=== PATIENT | male | born 1960 | race Caucasian/White ===

== ENCOUNTER 2017-05-13 13:04 | Observation (INO) | payer OTHER, BC ==
[~2017-05-13] VITALS: Ht 180.3 cm; Wt 149.5 kg
[~2017-05-13 13:04] MED LIST: ABL5 PO; ACET-1256 PO; AMLO-110 PO; BUPRTAB51 PO; CLS1 PO; CRS20 PO; CYM60 PO; LANS15CA15 PO; LORA-741 PO; LSN/20125 PO; METF500T PO; MULT-506 PO; TRZUNK PO; ZNT/150 PO; [UNRECOGNIZED DRUG - CODE] PO
[2017-05-13] MEDS ORDERED: NITROGLYCERIN OINT 2% 1GM PACKET EXT ONE (13:45)
[2017-05-13 13:55] LABS: BASO ABS # 0.09 K/uL (0-0.2); COMPLETE YES; EOS % 3.2 %; HEMATOCRIT 42.5 % (42-52); IG% 0.2 %; LYMPH % 29.7 %; LYMPH ABS # 2.76 K/uL (1.2-3.4); MEAN CELL VOLUME 84.5 fL (80-100); MEAN CORPUSCULAR HEMOGLOBIN 28.4 pg (25-34); MEAN CORPUSCULAR HGB CONC 33.6 g/dl (32-36); MEAN PLATELET VOLUME 9.1 fL (7.4-10.4); MONO % 7.1 %; NEUT % 58.8 %; PLATELET COUNT 372 K/uL (130-400); RED BLOOD COUNT 5.03 M/uL (4.7-6.1); WHITE BLOOD COUNT 9.28 K/uL (4.8-10.8)
[2017-05-13 14:02] LABS: POINT OF CARE TROPONIN I < 0.030 ng/ml (0-0.045)
[2017-05-13] MEDS ORDERED: TAPE100T2 PO (14:03)
[2017-05-13] MEDS ORDERED: DULO60CA44 PO (14:03)
[2017-05-13] MEDS ORDERED: TRAZ100T29 PO (14:03)
[2017-05-13] MEDS ORDERED: COLE1TAB PO (14:03)
[2017-05-13] MEDS ORDERED: ATOR-26 PO (14:03)
--- NOTE | 2017-05-13 14:07 | DIAGNOSTIC IMAGING REPORT ---
CHEST ONE VIEW PORTABLE CLINICAL HISTORY: Atypical chest pain COMPARISON STUDY: 09/24/2012 FINDINGS: The heart is at the upper limits of normal in size. There is no failure. There is no focal pulmonary consolidation. There are no pleural effusions. There is left basal atelectasis/scarring.[ IMPRESSION: No active disease in the chest. Electronically signed by: Bala Hunter M.D. 05/13/2017 2:06 PM Dictated Date/Time: 05/13/2017 2:05 PM
[2017-05-13 14:14] LABS: ALT/SGPT 33 U/L (12-78); AST/SGOT 14 U/L (15-37); BLOOD UREA NITROGEN 14 mg/dl (7-18); BUN/CREATININE RATIO 14.5 (10-20); CALCIUM 8.9 mg/dl (8.5-10.1); CARBON DIOXIDE 26 mmol/L (21-32); CHLORIDE 103 mmol/L (98-107); CREATININE 0.93 mg/dl (0.60-1.40); GLUCOSE 88 mg/dl (70-99); POTASSIUM 3.8 mmol/L (3.5-5.1); SODIUM 138 mmol/L (136-145)
[2017-05-13 14:19] LABS: ALKALINE PHOSPHATASE 104 U/L (45-117); CKMB/CK RATIO 0.9 (0-3.0)
--- NOTE | 2017-05-13 14:34 | EMERGENCY ROOM VISIT NOTE ---
History Report prepared by Brandie: Magdalena Perla Under the Supervision of: Dr. Vania Doherty M.D. First contact with patient: 13:31 Chief Complaint: CHEST PAIN Stated Complaint: CHEST DISCOMFORT Nursing Triage Summary: pt to the ED from [facility] with 2.5 wks of feeling like his heart is beating fast with sweats and bilateral neck pain and dizziness, pt states it feele like someone is sitting on his chest. pt had a neg stress test 2 years ago and has paperwork on chart from [facility] pt was given 2 nitro by EMS and it brought his pain from a 4/10 to a 0/10 and now he states his pain is 2/10 pt states that chest pain is better when he is on O2, pt placed back on O2 History of Present Illness The patient is a 56 year old male who presents to the Emergency Room with complaints of intermittent chest pain for the past 2.5 weeks. He states that it feels like someone is sitting on his chest. He also has intermittent pain in the left side of his neck. He reports occasional heart palpitations and episodes of diaphoresis. He states that these episodes don't necessarily coincide with his pain. He gets short of breath and dizzy with standing. His pain radiates down his left arm. The patient rates his current pain as a 2/10 in severity. His symptoms are worsened with exertion. He denies nausea, vomiting , leg pain or swelling, and pain radiating into his back. The patient was brought to the ED by ambulance. He received nitro, oxygen, and aspirin en route , which he states helped to alleviate his pain. The patient was recently diagnosed with a viral ear infection and initially thought that his symptoms might be related to that. Source of History: patient Onset: 2.5 weeks ago Position: chest Symptom Intensity: 2/10 Timing: intermittent Modifying Factors (Worsening): exertion Modifying Factors (Relieving): oxygen, other Associated Symptoms: + diaphoresis, + SOB, No nausea, No back pain Review of Systems See HPI for pertinent positives & negatives. A total of 10 systems reviewed and were otherwise negative. Past Medical & Surgical Medical Problems: (1) Anxiety (2) Chronic pain syndrome (3) Depression (4) GERD (gastroesophageal reflux disease) (5) HLD (hyperlipidemia) (6) Hypertension (7) Irritable bowel syndrome (8) Morbid obesity with BMI of 45.0-49.9, adult (9) Pre-diabetes Family History Cancer Diabetes mellitus Heart disease Social History Smoking Status: Former Smoker Marital Status: Occupation Status: employed Current/Historical Medications Scheduled Acetaminophen (Tylenol), 1,000 MG PO PRN Aspirin (Aspirin 81), 1 PO DAILY Atorvastatin (Atorvastatin Calcium), 40 MG PO DAILY Bupropion (Wellbutrin-Xl), 300 MG PO DAILY Colestipol Hcl (Colestid), 1 GM PO BID Cyanocobalamin (Vitamin B-12 1000 Mcg), 1 TAB PO DAILY Duloxetine Hcl (Cymbalta), 60 MG PO BID Hctz/Lisinopril (Zestoretic 20MG/12.5MG), 1 EA PO QAM Multivitamin (Multivitamin), 1 TAB PO DAILY Ranitidine Hcl (Zantac), 300 MG PO HS Trazodone HCl (Trazodone HCl), 200 MG PO HS Scheduled PRN Tapentadol Hcl (Nucynta), 100 MG PO QID PRN for Pain Allergies Coded Allergies: Adhesives (Verified Allergy, Unknown, `, 05/13/17) Poison Jo-Ann Extract/Poison [place] Extra (Verified Allergy, Unknown, `, 05/13/17 ) Physical Exam Vital Signs Date Time Temp Pulse Resp B/P (MAP) Pulse Ox O2 Delivery O2 Flow Rate FiO2 05/13/17 14:55 36.9 78 18 128/85 97 Nasal Cannula 2.0 05/13/17 14:38 79 18 128/85 97 Nasal Cannula 2.0 05/13/17 13:44 70 20 138/94 97 Nasal Cannula 1.0 05/13/17 13:18 Nasal Cannula 2.0 05/13/17 13:12 63 05/13/17 13:11 36.9 77 20 121/84 95 Room Air 05/13/17 13:11 95 Room Air Physical Exam Vital signs reviewed. General: Well-appearing 56 year old male, in no significant distress. HEENT: No scleral icterus, PERRLA, neck supple. Atraumatic. Cardiovascular: Regular rate and rhythm, no extra sounds. Pulmonary: Clear to auscultation bilaterally, normal work of breathing. Abdomen: Soft, obese, nontender, nondistended, positive bowel sounds. Musculoskeletal: Atraumatic, no peripheral edema. Neurologic: Patient awake alert and oriented x 3 Skin: Warm, dry, no rash Medical Decision & Procedures ER Provider Diagnostic Interpretation: Radiology results as stated below per my review and radiologist interpretation: CHEST ONE VIEW PORTABLE CLINICAL HISTORY: Atypical chest pain COMPARISON STUDY: 09/24/2012 FINDINGS: The heart is at the upper limits of normal in size. There is no failure. There is no focal pulmonary consolidation. There are no pleural effusions. There is left basal atelectasis/scarring.[ IMPRESSION: No active disease in the chest. Electronically signed by: Bala Hunter M.D. 05/13/2017 2:06 PM Dictated Date/Time: 05/13/2017 2:05 PM Laboratory Results Test 05/13/17 13:25 05/13/17 13:43 Immature Granulocyte % (Auto) 0.2 % White Blood Count 9.28 K/uL (4.8-10.8) Red Blood Count 5.03 M/uL (4.7-6.1) Hemoglobin 14.3 g/dL (14.0-18.0) Hematocrit 42.5 % (42-52) Mean Corpuscular Volume 84.5 fL (80-100) Mean Corpuscular Hemoglobin 28.4 pg (25-34) Mean Corpuscular Hemoglobin Concent 33.6 g/dl (32-36) Platelet Count 372 K/uL (130-400) Mean Platelet Volume 9.1 fL (7.4-10.4) Neutrophils (%) (Auto) 58.8 % Lymphocytes (%) (Auto) 29.7 % Monocytes (%) (Auto) 7.1 % Eosinophils (%) (Auto) 3.2 % Basophils (%) (Auto) 1.0 % Neutrophils # (Auto) 5.45 K/uL (1.4-6.5) Lymphocytes # (Auto) 2.76 K/uL (1.2-3.4) Monocytes # (Auto) 0.66 K/uL (0.11-0.59) Eosinophils # (Auto) 0.30 K/uL (0-0.5) Basophils # (Auto) 0.09 K/uL (0-0.2) Immature Granulocyte # (Auto) 0.02 K/uL (0.00-0.02) Activated Partial Thromboplast Time 28.7 SECONDS (21.0-31.0) Partial Thromboplastin Ratio 1.1 Total Bilirubin 0.4 mg/dl (0.2-1) Direct Bilirubin < 0.1 mg/dl (0-0.2) Aspartate Amino Transf (AST/SGOT) 14 U/L (15-37) Alanine Aminotransferase (ALT/SGPT) 33 U/L (12-78) Alkaline Phosphatase 104 U/L (45-117) Total Creatine Kinase 74 U/L (39-308) Creatine Kinase MB 0.7 ng/ml (0.5-3.6) Creatine Kinase MB Ratio 0.9 (0-3.0) Total Protein 6.9 gm/dl (6.4-8.2) Albumin 3.6 gm/dl (3.4-5.0) Bedside D-Dimer 311 ng/mlFEU (0-450) Bedside Troponin I < 0.030 ng/ml (0-0.045) Laboratory results per my review. Medications Administered Medications (Trade) Dose Ordered Sig/Samira Route Start Time Stop Time Status Last Admin Dose Admin Nitroglycerin (Nitroglycerin 2% Oint) 1 inch NOW ONCE EXT 05/13/17 13:45 05/13/17 13:46 DC 05/13/17 13:47 1 INCH Acetaminophen (Tylenol Tab) 650 mg Q4H PRN PO 05/13/17 15:15 05/14/17 12:37 DC 05/13/17 19:02 650 MG Nitroglycerin (Nitrostat Tab) 0.4 mg UD PRN SL 05/13/17 15:15 06/12/17 15:14 05/13/17 22:38 0.4 MG ECG Indication: chest pain Rate (beats per minute): 74 Rhythm: normal sinus Findings: 1st degree AV block, no acute ischemic change, left axis deviation, no ectopy, other (likely previous inferior infarct) ED Course 1331: Past medical records reviewed. The patient was evaluated in room C8. A complete history and physical examination was performed. 1345: Nitroglycerin 1 inch EXT 1421: I reassessed the patient at this time. He is feeling better and resting comfortably. I discussed the results and treatment plan with the patient. I answered all pertaining questions that he had. He expressed understanding and verbalized agreement. 1444: I reviewed the patient's case with Dr. Ponce. [facility]. Medical Decision Differential diagnoses includes acute coronary syndrome, pulmonary embolus, aortic dissection, musculoskeletal pain, pneumonia, pleural effusion, pneumothorax, gastritis, peptic ulcer disease. This patient was evaluated and appeared to be in no significant distress. IV access was obtained and laboratory work was drawn. The patient was placed on the vehicle upholsterer and found be in a normal sinus rhythm. EKG reveals no evidence of acute ischemic change. Patient's cardiac enzymes are normal. He did receive aspirin and topical nitroglycerin. Chest x-ray reveals cardiomegaly without acute disease. Patient was referred to the hospitalist service for further cardiac evaluation. He is aware of the plan and agrees. Medication Reconcilliation Current Medication List: was personally reviewed by me Blood Pressure Screening Patient's blood pressure: Normal blood pressure Consults Time Called: 1441 Consulting Physician: Dr. Ponce Returned Call: 1444 I reviewed the patient's case with Dr. Ponce. The [facility]ist Group will evaluate the patient for further management. Impression Primary Impression: Substernal chest pain Scribe Attestation The scribe's documentation has been prepared under my direction and personally reviewed by me in its entirety. I confirm that the note above accurately reflects all work, treatment, procedures, and medical decision making performed by me. Departure Information Dispostion Being Evaluated By Hospitalist Patient Instructions My [facility]
[2017-05-13 14:55] VITALS: BP 128/85; PULSE 78; TEMP 36.9; O2SAT 97; Ht 180.3 cm; Wt 149.5 kg
[2017-05-13] MEDS ORDERED: ONDANSETRON INJ 2 MG/ML 2 ML VIAL IV PRN (15:15)
[2017-05-13] MEDS ORDERED: MoRPHine SULFATE 2 MG/ML CARP IV PRN (15:15)
[2017-05-13] MEDS ORDERED: ACETAMINOPHEN 325 MG TAB PO PRN (15:15)
[2017-05-13] MEDS ORDERED: ALUMINUM/MAGNESIUM/SIMETH (MAALOX MAX) 30 ML UDC PO PRN (15:15)
[2017-05-13] MEDS ORDERED: IV FLUIDS COMPLETED PRN (15:45)
--- NOTE | 2017-05-13 16:01 | History and Physical ---
History & Physical Date & Time of Service: May 13, 2017 at 15:47 Chief Complaint: Chest Discomfort Primary Care Physician: Nomi Em M.D. (MEDICAL) History of Present Illness Source: patient This is a 56yo M with a PMH of HTN, HLD, pre-diabetes and GERD who presents with intermittent chest pain that began 2.5 weeks ago. States that chest pain feels like extreme pressure on the L side of his chest with radiation down L arm and bilateral jaw. Usually lasts for an hour at a time with associated fatigue and shortness of breath. Pain is severe enough that patient has to lie down on the couch or floor until the episode subsides and he can resume his activity. States that episodes can occur while patient is at rest or exerting himself. Has also been experiencing bouts of palpitations with associated sweating over the past few weeks that do not coincide with CP. Initially called the [facility] on Saturday with a description of these symptoms and was told to come to the ER for further evaluation. Patient felt he had too much to do this weekend, so stayed home and continued resting during each episode and then resuming activity. After his clinic appt at the [facility] this morning, was sent to the ER for further evaluation. Received nitro, oxygen and aspirin from EMS en route to the hospital and pain decreased to a 2/10. Currently rates CP as a 2/10 in severity and is breathing comfortably on 2L NC. Denies any headache, visual changes, sweating, palpitations, SOB, abd pain, nausea, vomiting or LE swelling. Denies recent weight gain or an increase in LE swelling. Has chronic diarrhea (h/o c diff infection in 2008) and has been having 2 episodes/day. States that he has previously been seen for chest pain at the [facility]. Per records, patient had a negative nuclear stress echo in 2015, with normal ventricular wall motion and an estimated EF of 89%. Has a + family history of heart disease. Denies any previous diagnosis of CHF. Has been taking all medications regularly. Past Medical/Surgical History Medical Problems: (1) Anxiety Status: Chronic (2) Chronic pain syndrome Status: Chronic (3) Depression Status: Chronic (4) GERD (gastroesophageal reflux disease) Status: Chronic (5) HLD (hyperlipidemia) Status: Chronic (6) Hypertension Status: Chronic (7) Irritable bowel syndrome Status: Chronic (8) Morbid obesity with BMI of 45.0-49.9, adult Status: Chronic (9) Pre-diabetes Status: Chronic Family History Cancer Diabetes mellitus Heart disease Social History Smoking Status: Former Smoker (Quit in 1995. 18 pack years) Alcohol Use: socially (3-4 beers/week) Drug Use: none Multi-Drug Resistant Organisms History of MDRO: No Allergies Coded Allergies: Adhesives (Verified Allergy, Unknown, `, 05/13/17) Poison Jo-Ann Extract/Poison [place] Extra (Verified Allergy, Unknown, `, 05/13/17 ) Home Medications Scheduled Acetaminophen (Tylenol), 1,000 MG PO PRN Aspirin (Aspirin 81), 1 PO DAILY Atorvastatin (Atorvastatin Calcium), 40 MG PO DAILY Bupropion (Wellbutrin-Xl), 300 MG PO DAILY Colestipol Hcl (Colestid), 1 GM PO BID Cyanocobalamin (Vitamin B-12 1000 Mcg), 1 TAB PO DAILY Duloxetine Hcl (Cymbalta), 60 MG PO BID Hctz/Lisinopril (Zestoretic 20MG/12.5MG), 1 EA PO QAM Multivitamin (Multivitamin), 1 TAB PO DAILY Ranitidine Hcl (Zantac), 300 MG PO HS Trazodone HCl (Trazodone HCl), 200 MG PO HS Scheduled PRN Tapentadol Hcl (Nucynta), 100 MG PO QID PRN for Pain Review of Systems Ten systems reviewed and negative except as noted in the HPI. Physical Exam Vital Signs Date Time Temp Pulse Resp B/P (MAP) Pulse Ox O2 Delivery O2 Flow Rate FiO2 05/13/17 14:55 36.9 78 18 128/85 97 Nasal Cannula 2.0 05/13/17 14:38 79 18 128/85 97 Nasal Cannula 2.0 05/13/17 13:44 70 20 138/94 97 Nasal Cannula 1.0 05/13/17 13:18 Nasal Cannula 2.0 05/13/17 13:12 63 05/13/17 13:11 36.9 77 20 121/84 95 Room Air 05/13/17 13:11 95 Room Air General Appearance: no apparent distress, + obese Head: normocephalic, atraumatic Eyes: normal inspection, PERRL ENT: hearing grossly normal Neck: supple, no adenopathy, thyroid normal, trachea midline Respiratory/Chest: chest non-tender, lungs clear, normal breath sounds, no respiratory distress, no accessory muscle use Cardiovascular: regular rate, rhythm, no murmur, normal peripheral pulses Abdomen/GI: normal bowel sounds, non tender, soft, no organomegaly Back: normal inspection Extremities/Musculoskelatal: normal inspection, no calf tenderness, no pedal edema Neurologic/Psych: no motor/sensory deficits, alert, normal mood/affect, oriented x 3 Skin: normal color, warm/dry Diagnostics Laboratory Results Results Past 24 Hours Test 05/13/17 13:25 05/13/17 13:43 05/13/17 15:13 Range/Units White Blood Count 9.28 4.8-10.8 K/uL Red Blood Count 5.03 4.7-6.1 M/uL Hemoglobin 14.3 14.0-18.0 g/dL Hematocrit 42.5 42-52 % Mean Corpuscular Volume 84.5 80-100 fL Mean Corpuscular Hemoglobin 28.4 25-34 pg Mean Corpuscular Hemoglobin Concent 33.6 32-36 g/dl Platelet Count 372 130-400 K/uL Mean Platelet Volume 9.1 7.4-10.4 fL Neutrophils (%) (Auto) 58.8 % Lymphocytes (%) (Auto) 29.7 % Monocytes (%) (Auto) 7.1 % Eosinophils (%) (Auto) 3.2 % Basophils (%) (Auto) 1.0 % Neutrophils # (Auto) 5.45 1.4-6.5 K/uL Lymphocytes # (Auto) 2.76 1.2-3.4 K/uL Monocytes # (Auto) 0.66 0.11-0.59 K/uL Eosinophils # (Auto) 0.30 0-0.5 K/uL Basophils # (Auto) 0.09 0-0.2 K/uL RDW Standard Deviation 43.0 36.4-46.3 fL RDW Coefficient of Variation 13.9 11.5-14.5 % Immature Granulocyte % (Auto) 0.2 % Immature Granulocyte # (Auto) 0.02 0.00-0.02 K/uL Sodium Level 138 136-145 mmol/L Potassium Level 3.8 3.5-5.1 mmol/L Chloride Level 103 98-107 mmol/L Carbon Dioxide Level 26 21-32 mmol/L Anion Gap 9.0 3-11 mmol/L Blood Urea Nitrogen 14 7-18 mg/dl Creatinine 0.93 0.60-1.40 mg/dl Est Creatinine Clear Calc Drug Dose 131.8 ml/min Estimated GFR () 105.2 Estimated GFR (Non- 90.8 BUN/Creatinine Ratio 14.5 10-20 Random Glucose 88 70-99 mg/dl Calcium Level 8.9 8.5-10.1 mg/dl Total Bilirubin 0.4 0.2-1 mg/dl Direct Bilirubin < 0.1 0-0.2 mg/dl Aspartate Amino Transf (AST/SGOT) 14 15-37 U/L Alanine Aminotransferase (ALT/SGPT) 33 12-78 U/L Alkaline Phosphatase 104 45-117 U/L Total Creatine Kinase 74 39-308 U/L Creatine Kinase MB 0.7 0.5-3.6 ng/ml Creatine Kinase MB Ratio 0.9 0-3.0 Total Protein 6.9 6.4-8.2 gm/dl Albumin 3.6 3.4-5.0 gm/dl Bedside D-Dimer 311 0-450 ng/mlFEU Bedside Troponin I < 0.030 0-0.045 ng/ml CXR normal EKG Sinus rhythm with 1st degree A-V block Left axis deviation Impression Assessment and Plan This is a 56yo M with a PMH of HTN, HLD, pre-diabetes and GERD who presents with intermittent chest pain that began 2.5 weeks ago. Typical chest pain: -R/o ACS; risk factors include HTN, HLD, obesity, pre-diabetes, + family history -[facility] -Received nitro, aspirin and O2 by EMS. Pain was alleviated -Initial troponin negative -EKG- SR with 1st degree AV block, LAD. possible old inferior infarct -CXR- No active disease in chest -Trend serial cardiac enzymes -Check echo -Repeat EKG in AM -Fasting lipids in AM -Consult cardiology -Continue home dose of aspirin HTN: -Stable -Continue home lisinopril/hctz Pre-diabetes: -Hgb alc of 6.2 in 2016 -Re-check hgb a1c due to recent complaints of fatigue -Previously taking metformin but was causing severe diarrhea HLD: -Fasting lipid panel in AM -Continue atorvastatin Chronic pain syndrome: -Chronic lower back, lower abdominal and L testicular pain -Controlled with a 2/10 rating of overall pain -Continue home regimen of Nucynta, trazodone Anxiety, depression: -Controlled -Continue cymbalta, bupropion GERD: -Continue Ranitidine IBS: -Has 2 episodes of diarrhea daily (chronic) -Continue Colestipol BID PRN DVT Ppx: Lovenox Code status: FULL PCP: Dr. Em, [facility] Dispo: Plan to return home once medically stable Level of Care Telemetry Advanced Directives Existing Living Will: No Existing Power of Ergonomic Specialist: Yes Resuscitation Status FULL RESUSCITATION VTE Prophylaxis VTE Risk Assessment Done? Y/N: Yes Risk Level: Moderate Given or contraindicated: Enoxaparin (Lovenox)SQ Note ATTENDING ADDENDUM Record reviewed. Patient interviewed and examined. in ED ~ 15:50. Care coordinated with Adeel Lala PA-C. Please refer to her documentation for patient's history. Briefly, 56 YO male with history of hypertension, dyslipidemia, prediabetes, GERD, family history of ischemic heart disease. Experiencing intermittent CP for past 2-3 weeks. Chest pain described as substernal chest pressure that radiates to his left arm , associated with dyspnea and diaphoresis. CP occurs with activity (but not always) and relieved by rest. Seen in [facility] this morning and referred to ED; received aspirin, SL NTG, and O2 by EMS with improvement of symptoms. Received NTP in ED with resolution of CP. EXAM: General- no distress VS- as noted HEENT- anicteric Neck- supple Lungs- clear to A&P Heart- RRR, S4, no S3, no murmur, no rub; no JVD; carotid pulses 2/2; radial and pedal pulses 2/2 Abdomen- + BS, soft, nontender; no palpable masses or hepatosplenomegaly Extremities- no pretibial edema or calf tenderness Neuro- alert, oriented DATA: Lab studies as noted. EKG performed at 13:11 reviewed and demonstrated NSR at 74 / minute, first degree AV block, possible age-indeterminate inferior TN, no acute changes.. Chest x-ray reviewed- no infiltrates, effusions, CHF. ASSESSMENT AND PLAN: Chest pain, possible angina. [facility]. Check serial cardiac markers and EKG's. Check echo. Check lipid profile. Continue usual antihypertensive and lipid-lowering meds. Received aspirin en route to ED- continue 81 mg daily. Consult Cardiology. Continue worsening GERD or other etiologies if cardiac work-up negative. Please refer to JANICE Lala's documentation for discussion of other issues. Randy Ponce MD . Additional Copies To [facility]
[2017-05-13] MEDS ORDERED: ASPI325T45 PO (16:17)
[2017-05-13] MEDS ORDERED: LPT40 PO (16:17)
[2017-05-13] MEDS ORDERED: DSY100 PO (16:17)
[2017-05-13] MEDS ORDERED: CYAN10004 PO (16:17)
[2017-05-13 16:32] LABS: PARTIAL THROMBOPLASTIN RATIO 1.1; PROTHROMBIN TIME (PATIENT) 10.8 SECONDS (9.0-12.0)
[2017-05-13] MEDS ORDERED: ASPI-435 PO (16:53)
[2017-05-13] MEDS: NITROGLYCERIN 0.4 MG SL PER TAB CHARGE SL PRN ×2 (17:10→22:38)
[2017-05-13 18:47] VITALS: BP 154/87; PULSE 79; TEMP 37.1; O2SAT 97
[2017-05-13] MEDS: TAPENTADOL HCL 50 MG TAB PO PRN (19:11)
[2017-05-13 19:12] LABS: URINE APPEARANCE CLEAR (CLEAR); URINE BILIRUBIN NEG (NEG); URINE COLOR YELLOW; URINE NITRITE NEG (NEG); URINE SPECIFIC GRAVITY 1.013 (1.000-1.030); UROBILINOGEN NEG (NEG); ZZUR CULT IF INDIC CLEAN CATCH NO
[2017-05-13 19:13] LABS: MANUAL MICROSCOPIC REQUIRED? NO; REVIEW REQ? NO
[2017-05-13 20:00] VITALS: O2SAT 96
[2017-05-13] MEDS ORDERED: COLESTIPOL HCL 1 GM TAB PO SCH (21:00)
[2017-05-13] MEDS ORDERED: ENOXAPARIN 40 MG/0.4 ML SYR SC SCH (21:00)
[2017-05-13] MEDS: RANITIDINE HCL 150 MG TAB PO SCH (21:01)
[2017-05-13] MEDS: DULOXETINE HCL 60 MG CAP PO SCH (21:02)
[2017-05-13] MEDS: TRAZODONE HCL 100 MG TAB PO SCH (21:02)
[2017-05-13] MEDS: COLESTIPOL HCL 1 GM TAB PO SCH (22:12)
[2017-05-13 22:23] VITALS: BP 146/92; PULSE 76
[2017-05-13] MEDS: NITROGLYCERIN OINT 2% 1GM PACKET EXT SCH (22:48)
[2017-05-13 22:49] VITALS: BP 152/90; PULSE 88; O2SAT 93
[2017-05-13 23:59] VITALS: BP 119/75; PULSE 77; TEMP 36.6; O2SAT 95
[2017-05-14] VITALS (19 sets, daily range): BP systolic 111–149; BP diastolic 73–98; PULSE 70–96; TEMP 36.6–37.4; O2SAT 92–97
[2017-05-14] MEDS: NITROGLYCERIN OINT 2% 1GM PACKET EXT SCH ×3 (05:09→17:00)
[2017-05-14 06:15] LABS: HEMATOCRIT 41.4 % (42-52); MEAN CELL VOLUME 84.8 fL (80-100); MEAN CORPUSCULAR HEMOGLOBIN 28.5 pg (25-34); MEAN CORPUSCULAR HGB CONC 33.6 g/dl (32-36); MEAN PLATELET VOLUME 9.1 fL (7.4-10.4); PLATELET COUNT 338 K/uL (130-400); RED BLOOD COUNT 4.88 M/uL (4.7-6.1)
[2017-05-14 06:26] LABS: PROTHROMBIN TIME (PATIENT) 10.9 SECONDS (9.0-12.0)
[2017-05-14 06:27] LABS: ESTIMATED AVERAGE GLUCOSE 131 mg/dl; HA1C FLAG Normal (Normal)
[2017-05-14 06:46] LABS: BLOOD UREA NITROGEN 12 mg/dl (7-18); BUN/CREATININE RATIO 12.3 (10-20); CALCIUM 9.6 mg/dl (8.5-10.1); CARBON DIOXIDE 32 mmol/L (21-32); CHLORIDE 102 mmol/L (98-107); GLUCOSE 95 mg/dl (70-99); SODIUM 138 mmol/L (136-145)
[2017-05-14 06:50] LABS: CHOLESTEROL 150 mg/dl (0-200); CHOLESTEROL/HDL RATIO 3.8; HDL CHOLESTEROL 39 mg/dl; LDL CHOLESTEROL CALCULATED 53 mg/dl; TRIGLYCERIDES 288 mg/dl (0-150); VERY LOW DENSITY LIPOPROT CALC 58 mg/dl
[2017-05-14] MEDS ORDERED: PERFLUTREN LIPID MICROSPHERE (DEFINITY) IV ONE (08:05)
--- NOTE | 2017-05-14 08:38 | Cardiology Consultation ---
Cardiology Consultation Date of Consultation: May 14, 2017 Requesting Physician: Dr. Ponce Attending Director Of Medical Review: Dr. Atkins (Lawanda Lamas PA-C) History of Present Illness Patient is a 56 year old male with a past medical history including HTN, obesity , dyslipidemia, prior tobacco abuse, chronic pain syndrome, IBS, and family history of CAD. Patient reports having intermittent chest heaviness over the last 2 weeks. Occurs at rest or with minimal exertion. Feels the urge to lie down and symptoms resolve within 15 minutes. Describes the chest discomfort as pressure, someone sitting on his chest, with radiation to neck. Notes SOB at the time and dizziness. No orthopnea, PND or LE edema. He recalls having a nuclear stress test in 2014 at the [place], which was reported as normal. He denies history of arrhythmia, murmur/valvular disease, CHF or prior cardiac cath. he recalls being told he had a "heart attack" after having an EKG many years ago prior to orthopedic surgery. Echo report from several years ago demonstrated normal LV function. No valvular disease. He went to the [place] yesterday morning for his symptoms and was referred to ER for evaluation. 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 Cardiac enzymes unremarkable x3. Chest/neck pressure resolved with 1 SL nitro in the ER. He noted recurrent symptoms last evening on several occasions, also resolving with 1 SL nitro. He has supplemental O2 in place, which he reports aids his symptoms. he does not wear O2 at home. Chest xray was clear. He had one episode of sustained tachypalpitations on telemetry suggestive of paroxysmal SVT with aberrancy. He noted chest pain during this time. No syncope or near syncope. resolved spontaneously. At time of consult, patient feeling ok. No current symptoms. He is NPO. (Lawanda Lamas PA-C) Past Medical/Surgical History Problem List: Medical Problems: (1) Anxiety (2) Chronic pain syndrome (3) Depression (4) GERD (gastroesophageal reflux disease) (5) HLD (hyperlipidemia) (6) Hypertension (7) Irritable bowel syndrome (8) Morbid obesity with BMI of 45.0-49.9, adult (9) Pre-diabetes Surgical History: Procedure Laterality Date Comment BACK/FLANK SUBQ TUMOR REMOVAL, UNDER 3 CM 10/07/12 Re-excision of 15 x 8 cm area in the left lower pole back for multilobular lipo 10/07/2012 ma 10/07/12 Dr. Gaffney at [facility] COLONOSCOPY W/ BIOPSY (RECTUM) 02/18/09 repeat in 3 yrs COLONOSCOPY, DIAGNOSTIC (RECTUM) 01/24/2012 repeat 5 years-COLONOSCOPY FLEXIBLE PROXIMAL DIAGNOSTIC performed by DEONTE BROWN at [facility] COLONOSCOPY, GI REFERRAL OP 07/09/06 adenomatous--repeat 1 year COLONOSCOPY, REMOVE LESION 2002 COLONOSCOPY/REMOVE LESION 02/26/08 6 mm polyp removed (adenomatous)- repeat 1 year COLORECTAL CANCER SCREEN;COLON 01/24/2012 lipoma ascending colon post polypectomy scae repeat in 5 years CYSTOSCOPY 05-21-07 under anesthesia DENTAL SURGERY PROCEDURE NEC 02/05 beone removal from mouth EGD, FLEXIBLE, DIAGNOSTIC 02/26/08 wnl INFORMATION lipoma removal, large, back x 6 INFORMATION left side wall skin removal, brown recluse spider bite INFORMATION mole removal, left shoulder INFORMATION growth removal, lip MISCELLANEOUS ORDER 2006 Pain stimulator-Dr. Hartman, removed March 10 MISCELLANEOUS ORDER 03/21/01 Exploration left inguinal area with local IV sedation -Dr. Gaffney [facility] MISCELLANEOUS ORDER 2006 Right arm nerve relocation-[facility] REMOVAL OF TONSILS, UNDER AGE 11 Tonsillectomy,<12 Y/O UNLISTED PROCEDURE, SMALL INTESTINE 1991 ventral hernia repair, then attempted nerve repair-[facility] (Lawanda Lamas, KELLEYC) Family History Cancer Diabetes mellitus Heart disease Mother with multiple HI's age 50's. No interventions performed, occurred during chemotherapy treatments. (Lawanda Lamas, KELLEYC) Cancer Diabetes mellitus Heart disease (Henri Atkins, DO) Social History Smoking Status: Former Smoker (Quit in 1995. 18 pack years) Alcohol Use: socially (3-4 beers/week) Drug Use: none (Lawanda Lamas, KELLEYC) Review Of Systems General: The patient denies weight change, night sweats, fever, chills. Head: The patient denies headache and prior head trauma. Cardiovascular: The patient denies chest pain or chest discomfort, dyspnea on exertion, palpitations, PND, orthopnea, edema, spontaneous shortness of breath, syncope and near syncope. Pulmonary: The patient denies cough, wheeze, pleurisy, hemoptysis, sputum, and excessive snoring. Gastrointestinal: The patient denies nausea, vomiting, diarrhea, constipation, bloating, hematemesis, hematochezia, and abdominal pain. Skin: The patient denies diaphoresis and rash. Musculoskeletal: +chronic diffuse pain. Neurological: The patient denies prior stroke and seizures (Lawanda Lamas PA-C) Allergies Coded Allergies: Adhesives (Verified Allergy, Unknown, `, 05/13/17) Poison Jo-Ann Extract/Poison Bud Extra (Verified Allergy, Unknown, `, 05/13/17 ) Medications Reported Home Medications Medications Dose Route/Sig Max Daily Dose Days Date Category Aspirin 81 (Aspirin) 81 Mg Tab 1 PO DAILY 05/13/17 Reported Vitamin B-12 1000 Mcg (Cyanocobalamin) 1,000 Mcg Tab 1 Tab PO DAILY 30 05/13/17 Reported Atorvastatin Calcium (Atorvastatin) 40 Mg Tab 40 Mg PO DAILY 05/13/17 Reported Trazodone HCl 100 Mg Tab 200 Mg PO HS 05/13/17 Reported Nucynta (Tapentadol Hcl) 100 Mg Tab 100 Mg PO QID PRN 05/13/17 Reported Cymbalta (Duloxetine Hcl) 60 Mg Cap 60 Mg PO BID 05/13/17 Reported Colestid (Colestipol Hcl) 1 Gm Tab 1 Gm PO BID 05/13/17 Reported Wellbutrin-Xl (Bupropion HCl) 300 Mg Tabcr 300 Mg PO DAILY 09/15/10 Reported Multivitamin (Multivitamins) Tab 1 Tab PO DAILY 01/03/10 Reported Zantac (Ranitidine Hcl) 150 Mg Tab 300 Mg PO HS 01/03/10 Reported Zestoretic 20MG/12.5MG (HCTZ/Lisinopril) 1 Ea Tab 1 Ea PO QAM 01/03/10 Reported Tylenol (Acetaminophen) 500 Mg Tab 1,000 Mg PO PRN 04/24/09 Reported (Lawanda Lamas PA-C) Physical Exam Vital Signs (Last 8hrs): Last 8 Hrs Date Time Temp Pulse Resp B/P (MAP) Pulse Ox O2 Delivery O2 Flow Rate FiO2 05/14/17 07:54 93 Nasal Cannula 2.0 05/14/17 07:15 37.0 78 15 135/76 (95) 93 Nasal Cannula 2.0 05/14/17 05:10 96 133/73 (93) 05/14/17 04:13 36.6 70 16 119/74 (89) 92 05/14/17 04:00 Nasal Cannula 2.0 General Appearance: Alert and Oriented x3. NAD. Obese. Head: Normocephalic Atraumatic. Eyes: PERRLA, EOMI, conjunctiva and sclera clear Neck: Supple. No carotid bruits noted. No JVD. No HJD. Respiratory: Decreased breath sounds, otherwise clear. Cardiovascular: Reg rate and rhythm. distant heart sounds. Abdomen: Obese. Normal bowel sounds, soft nontender. no abdominal bruits. Extremities: No edema, no clubbing or cyanosis. distal pulses 2/4 bilaterally. Neuro: No focal deficits. Psychiatric: Normal affect. (Lawanda Lamas, ERAN) Data Last 24 Hours Test 05/13/17 13:25 05/13/17 13:43 05/13/17 18:50 05/13/17 21:54 White Blood Count 9.28 K/uL Red Blood Count 5.03 M/uL Hemoglobin 14.3 g/dL Hematocrit 42.5 % Mean Corpuscular Volume 84.5 fL Mean Corpuscular Hemoglobin 28.4 pg Mean Corpuscular Hemoglobin Concent 33.6 g/dl Platelet Count 372 K/uL Mean Platelet Volume 9.1 fL Neutrophils (%) (Auto) 58.8 % Lymphocytes (%) (Auto) 29.7 % Monocytes (%) (Auto) 7.1 % Eosinophils (%) (Auto) 3.2 % Basophils (%) (Auto) 1.0 % Neutrophils # (Auto) 5.45 K/uL Lymphocytes # (Auto) 2.76 K/uL Monocytes # (Auto) 0.66 K/uL Eosinophils # (Auto) 0.30 K/uL Basophils # (Auto) 0.09 K/uL RDW Standard Deviation 43.0 fL RDW Coefficient of Variation 13.9 % Immature Granulocyte % (Auto) 0.2 % Immature Granulocyte # (Auto) 0.02 K/uL Prothrombin Time 10.8 SECONDS Prothromb Time International Ratio 1.0 Activated Partial Thromboplast Time 28.7 SECONDS Partial Thromboplastin Ratio 1.1 Sodium Level 138 mmol/L Potassium Level 3.8 mmol/L Chloride Level 103 mmol/L Carbon Dioxide Level 26 mmol/L Anion Gap 9.0 mmol/L Blood Urea Nitrogen 14 mg/dl Creatinine 0.93 mg/dl Est Creatinine Clear Calc Drug Dose 131.8 ml/min Estimated GFR () 105.2 Estimated GFR (Non- 90.8 BUN/Creatinine Ratio 14.5 Random Glucose 88 mg/dl Calcium Level 8.9 mg/dl Total Bilirubin 0.4 mg/dl Direct Bilirubin < 0.1 mg/dl Aspartate Amino Transf (AST/SGOT) 14 U/L Alanine Aminotransferase (ALT/SGPT) 33 U/L Alkaline Phosphatase 104 U/L Total Creatine Kinase 74 U/L Creatine Kinase MB 0.7 ng/ml Creatine Kinase MB Ratio 0.9 Total Protein 6.9 gm/dl Albumin 3.6 gm/dl Bedside D-Dimer 311 ng/mlFEU Bedside Troponin I < 0.030 ng/ml Urine Color YELLOW Urine Appearance CLEAR Urine pH 6.0 Urine Specific [place] 1.013 Urine Protein NEG Urine Glucose (UA) NEG Urine Ketones NEG Urine Occult Blood NEG Urine Nitrite NEG Urine Bilirubin NEG Urine Urobilinogen NEG Urine Leukocyte Esterase NEG Troponin I < 0.015 ng/ml Test 05/14/17 05:59 White Blood Count 8.10 K/uL Red Blood Count 4.88 M/uL Hemoglobin 13.9 g/dL Hematocrit 41.4 % Mean Corpuscular Volume 84.8 fL Mean Corpuscular Hemoglobin 28.5 pg Mean Corpuscular Hemoglobin Concent 33.6 g/dl RDW Standard Deviation 42.8 fL RDW Coefficient of Variation 13.9 % Platelet Count 338 K/uL Mean Platelet Volume 9.1 fL Prothrombin Time 10.9 SECONDS Prothromb Time International Ratio 1.0 Sodium Level 138 mmol/L Potassium Level 4.0 mmol/L Chloride Level 102 mmol/L Carbon Dioxide Level 32 mmol/L Anion Gap 4.0 mmol/L Blood Urea Nitrogen 12 mg/dl Creatinine 1.00 mg/dl Est Creatinine Clear Calc Drug Dose 121.1 ml/min Estimated GFR () 96.4 Estimated GFR (Non- 83.2 BUN/Creatinine Ratio 12.3 Random Glucose 95 mg/dl Estimated Average Glucose 131 mg/dl Hemoglobin A1c 6.2 % Calcium Level 9.6 mg/dl Troponin I < 0.015 ng/ml Triglycerides Level 288 mg/dl Cholesterol Level 150 mg/dl HDL Cholesterol 39 mg/dl LDL Cholesterol, Calculated 53 mg/dl VLDL Cholesterol, Calculated 58 mg/dl Cholesterol/HDL Ratio 3.8 Imaging: Chest xray - IMPRESSION: No active disease in the chest. EKG: All EKG's reviewed - NSR with 1st degree AV block, old inferior infarct Compared with prior EKG's, no significant changes - inferior infarct noted on EKG's dating back to 2012 in [facility]. Telemetry reviewed: NSR with one episode of probable SVT with abberrancy occuring at 22:42 alst evening. (Lawanda Lamas, ERAN) Assessment & Plan 56 year old male 1. Chest pain, concerning for angina -Negative cardiac enzymes x3 -Non ischemic EKG -reproducible with exertional activities and with paroxysmal SVT last night -resolved with SL nitro each time -risk factors for CAD including HTN, dyslipidemia, prior tobacco abuse, family history of CAD -given episode of non sustained SVT, would not recommend dobutamine. He is unable to walk on a treadmill due to SOB and diffuse/chronic pain. Consider 2 day nuclear stress or diagnostic cardiac catheterization. -Echo report pending 2. Paroxysmal SVT, non sustained -no recurrence -electrolytes ok -start Toprol 25 mg - 1 tab daily 3. Hypertension - controlled -continue lisinopril/hctz -start Toprol 4. Obesity Case to be discussed with Dr. Atkins. Further recommendations pending review of echo and diagnostic tests (cath vs stress test). Patient is NPO. (Lawanda Lamas, ERAN) CARDIOLOGY ATTENDING ADDENDUM: The patient was seen and personally examined. Agree with Lawanda Lamas PA-C's findings and plans as documented above. Best option is for heart cath today. Explained risk, benefit and intent of procedure including potential for a catheter based intervention. Pt. is willing to proceed. Treat tachycardia with beta arun for now. Further recommendations after cath. (Henri Atkins, )
[2017-05-14] MEDS ORDERED: ASPIRIN 81 MG ECTAB PO SCH ×2 (09:00)
[2017-05-14] MEDS ORDERED: ATORVASTATIN 40 MG TAB PO SCH (09:00)
[2017-05-14] MEDS ORDERED: BuPROPion XL 300 MG TABCR PO SCH (09:00)
[2017-05-14] MEDS ORDERED: LISINOPRIL/HCTZ 20/12.5MG TAB PO SCH (09:00)
[2017-05-14] MEDS ORDERED: CYANOCOBALAMIN 500 MCG TAB (VIT B-12) PO SCH (09:00)
[2017-05-14] MEDS ORDERED: ASPIRIN 325 MG ECTAB PO SCH (09:00)
[2017-05-14] MEDS ORDERED: MIDAZOLAM HCL 1 MG/ML 2ML VIAL ONE (10:25)
[2017-05-14] MEDS ORDERED: FENTANYL CITRATE INJ 50 MCG/1 ML 2 ML VIAL ONE (10:25)
[2017-05-14] MEDS ORDERED: NITROGLYCERIN/D5W 100MCG/ML 20ML SYR ONE (10:26)
[2017-05-14] MEDS ORDERED: NiCARDipine HCL INJ 2.5 MG/ML 10 ML AMP ONE (10:26)
[2017-05-14] MEDS ORDERED: HEPARIN SOD (PORCINE) 1000 UNIT/ML 10 ML VIAL ONE (10:26)
[2017-05-14] MEDS ORDERED: SODIUM CHLORIDE 0.9% 1000ML 1,000 ML IV SCH (10:31)
[2017-05-14] MEDS ORDERED: DC ALL ANTICOAGULANTS ONE (10:45)
[2017-05-14] MEDS ORDERED: METOPROLOL SUCC 25MG EXT REL TAB PO ONE ×2 (10:45→15:00)
[2017-05-14] MEDS ORDERED: SODIUM CHLORIDE 0.9% 1000ML 250 ML IV PRN (12:24)
[2017-05-14] MEDS ORDERED: ONDANSETRON INJ 2 MG/ML 2 ML VIAL IV PRN (12:30)
[2017-05-14] MEDS ORDERED: ACETAMINOPHEN 325 MG TAB PO PRN (12:30)
[2017-05-14] MEDS ORDERED: ATROPINE SULFATE 0.1 MG/ML 5ML SYR IV PRN (12:30)
--- NOTE | 2017-05-14 12:34 | Cardiac Catheterization ---
Procedure Note Procedure Date May 14, 2017. Pre-Procedure Diagnosis Angina AUC Score 7 Post-Procedure Diagnosis Severe CAD Procedure(s) Performed Coronary Angiography, Left Heart Cath, LV Angiography, Aortography Supervisor Heading Dr. Atkins Accounts Payable Assistant(s) None Estimated Blood Loss None Medication(s) Heparin, Versed, Lidocaine 1% Summary of Findings Severe 2 vessel coronary artery disease Hemodynamics Rest Ao: 113/80 Final Ao: 159/85 LV: 155/9 Recommendations CABG Specimens None Radiation Exposure (mGy) 5144 Contrast (mls) 216 Fluids (cc crystalloids) 135 Procedural Complication(s) Started RT radial, could not engage RCA. Finished RT femoral approach Disposition Recovery Room / PACU ACC Data Cardiac Status Clinical evaluation leading to the procedure CAD Presntation: Stable angina Anginal Classification: CCS II Heart Failure: No Cardiogenic Shock w/in 24Hrs: No Cardiac Arrest w/in 24Hrs: No Imaging studies past 6 months: Yes Stress studies past 6 months: No Coronary Anatomy Dominant: Right Left Main (% Stenosis): Normal LAD (% Stenosis): Mid (80) Circumflex (% Stenosis): Ostial (90) RCA (% Stenosis): Proximal (50) Left Ventricular Angiography EF (%): 60 Diagnostic Status: Urgent Closure Device Percutaneous Entry Location: Radial and Femoral Closure Device: Mynx, Radial Band Recommendations: CABG
--- NOTE | 2017-05-14 13:01 | ECHOCARDIOGRAM REPORT ---
*NOTICE TO RECEIVING [employer] This information is strictly Confidential and protected under [place] law. [place] law prohibits you from making any further disclosure of this information unless further disclosure is expressly permitted by the written consent of the person to whom it pertains or is authorized by law. A general authorization for the release of medical or other information is not sufficient for this purpose. Hospital accepts no responsibility if the information is made available to any other person, INCLUDING THE PATIENT. Interpretation Summary * Name: GERMÁN RIVERA Study Date: 05/14/2017 07:35 AM BP: 135/76 mmHg * Patient Location: .[facility]\S\N287\S\2 HR: 78 * : 1960 (M/d/yyyy) Gender: Male Height: 71 in * Age: 56 yrs Ethnicity: [place] Weight: 337 lb * Ordering Physician: Adele Lala * Referring Physician: No Doctor, Assigned * Performed By: Lisa Billingsley RDCS * * Reason For Study: CHEST PAIN * BSA: 2.6 m2 * The study was technically limited. * Grossly normal valvular structure and function. * -- Conclusions -- * The study was technically limited. * The left ventricle is grossly normal size. * Left ventricular systolic function is normal. * Ejection Fraction = 60-65%. * Grossly normal valvular structure and function. Procedure Details * A contrast injection of Definity was performed to improve assessment of LV function. * Contrast was injected into an intravenous site in the left arm. * One vial of Definity ultrasound contrast was diluted in normal saline to a total volume of 10 ml. A total of '2' ml of solution was administered during imaging. * Lot # [id number] of Definity utilized for procedure. * Expiration date JUN 19. * The attending nurse who injected the contrast agent was CHANDAN ATKINS. Left Ventricle * The left ventricle is grossly normal size. * There is normal left ventricular wall thickness. * Ejection Fraction = 60-65%. * Left ventricular systolic function is normal. * The left ventricular wall motion is normal at rest. Right Ventricle * The right ventricle is grossly normal size. * The right ventricular systolic function is normal. Atria * The left atrium is not well visualized. * Right atrium not well visualized. * There is no evidence of atrial septal defect, but resolution does not allow assessment for a patent foramen ovale. Mitral Valve * The mitral valve is not well visualized. * Significant mitral regurgitation is absent. Tricuspid Valve * The tricuspid valve is not well visualized. * Significant tricuspid regurgitation is absent. Aortic Valve * The aortic valve is not well visualized. * No hemodynamically significant valvular aortic stenosis. * There is no significant aortic regurgitation. Pulmonic Valve * The pulmonic valve is not well visualized. MMode 2D Measurements and Calculations IVSd 1.1 cm IVSs 2.1 cm LVIDd 5.3 cm LVIDs 3.6 cm LVPWd 1.3 cm LVPWs 1.9 cm IVS/LVPW 0.82 FS 31.7 % EDV(Teich) 135.2 ml ESV(Teich) 55.1 ml EF(Teich) 59.3 % EDV(cubed) 148.7 ml ESV(cubed) 47.4 ml EF(cubed) 68.2 % % IVS thick 90.3 % % LVPW thick 44.1 % LV mass(C)d 254.9 grams LV mass(C)dI 96.8 grams/m\S\2 LV mass(C)s 320.7 grams LV mass(C)sI 121.8 grams/m\S\2 SV(Teich) 80.2 ml SI(Teich) 30.4 ml/m\S\2 SV(cubed) 101.4 ml SI(cubed) 38.5 ml/m\S\2 LVAd ap4 37.8 cm\S\2 LVLd ap4 9.6 cm EDV(MOD-sp4) 120.9 ml EDV(sp4-el) 126.6 ml LVAs ap4 20.3 cm\S\2 LVLs ap4 7.6 cm ESV(MOD-sp4) 45.1 ml ESV(sp4-el) 46.0 ml EF(MOD-sp4) 62.7 % EF(sp4-el) 63.7 % LVAd ap2 33.9 cm\S\2 LVLd ap2 9.5 cm EDV(MOD-sp2) 99.5 ml EDV(sp2-el) 102.6 ml LVAs ap2 19.2 cm\S\2 LVLs ap2 7.7 cm ESV(MOD-sp2) 38.4 ml ESV(sp2-el) 40.5 ml EF(MOD-sp2) 61.4 % EF(sp2-el) 60.5 % LVLd %diff -0.62 % EDV(MOD-bp) 109.6 ml LVLs %diff 1.7 % ESV(MOD-bp) 41.4 ml EF(MOD-bp) 62.3 % SV(MOD-sp4) 75.9 ml SI(MOD-sp4) 28.8 ml/m\S\2 SV(MOD-sp2) 61.1 ml SI(MOD-sp2) 23.2 ml/m\S\2 SV(MOD-bp) 68.2 ml SI(MOD-bp) 25.9 ml/m\S\2 SV(sp4-el) 80.6 ml SI(sp4-el) 30.6 ml/m\S\2 SV(sp2-el) 62.1 ml SI(sp2-el) 23.6 ml/m\S\2 Doppler Measurements and Calculations MV E max armando 82.5 cm/sec MV A max armando 70.8 cm/sec MV E/A 1.2 MV dec time 0.19 sec Ao V2 max 111.6 cm/sec Ao max PG 5.0 mmHg Ao max PG (full) 2.4 mmHg LV V1 max PG 2.6 mmHg LV V1 max 80.0 cm/sec
[2017-05-14] MEDS: SODIUM CHLORIDE 0.9% 1000ML 1,000 ML IV SCH (13:15)
[2017-05-14] MEDS: TAPENTADOL HCL 50 MG TAB PO PRN ×2 (13:29→20:05)
[2017-05-14] MEDS: COLESTIPOL HCL 1 GM TAB PO SCH ×2 (13:31→22:33)
[2017-05-14] MEDS: DULOXETINE HCL 60 MG CAP PO SCH ×2 (13:32→21:06)
--- NOTE | 2017-05-14 14:38 | Progress Note ---
Internal Med Progress Note Date of Service: May 14, 2017. Provider Documentation: SUBJECTIVE: Seen and examined at bedside States having intermittent chest pain which relieves with NTG Also reports SOB associated with exertion Family at bedside Had cardiac cath today OBJECTIVE: Vital Signs-as noted below Physical Exam: General Appearance:Obese, no apparent distress Head: normocephalic, Atraumatic Eyes: normal inspection, EOMI, PERRL Neck: supple, Trachea midline Respiratory/Chest: Normal breath sounds, CTA Cardiovascular: S1, S2, No murmur Abdomen/GI:Soft, Non tender, Bowel sounds present Extremities/Musculoskelatal:normal inspection, no edema Neurologic/Psych:grossly no focal neurological deficits Skin: normal color, warm Lab data as noted below. ASSESSMENT & PLAN: Patient is a 56yr male with PMH of HTN, HLD, pre-diabetes and GERD who presents with intermittent chest pain that began 2.5 weeks ago. Angina/Severe CAD: S/P cardiac cath: 2 vessel disease Needs CABG Plan to start on IV heparin later today Continue ASA, Lipitor, BB NTG PRN CXR- No active disease in chest Appreciate cardiology Input HTN: Stable Continue lisinopril/hctz Pre-diabetes: A1C: 6.2 Previously taking metformin but was causing severe diarrhea HLD: Continue atorvastatin Chronic pain syndrome: Chronic lower back, lower abdominal and L testicular pain Continue home med: Nucynta, trazodone Anxiety, depression: Continue cymbalta, bupropion GERD: Continue Ranitidine IBS: Has 2 episodes of diarrhea daily (chronic) Continue Colestipol BID PRN DVT Px: IV heparin Code status: FULL PCP: Dr. Em, [facility] Dispo:Planned to be discharged to [facility] today Accepting physician Dr. Pak (CT surgery) Vital Signs: Date Time Temp Pulse Resp B/P (MAP) Pulse Ox O2 Delivery O2 Flow Rate FiO2 05/14/17 15:10 37.4 84 18 145/95 (112) 94 Room Air 05/14/17 14:00 74 17 143/92 (109) 96 Room Air 05/14/17 13:45 37.3 84 18 147/98 (114) 97 Room Air 05/14/17 13:30 80 16 140/89 (106) 95 Room Air 05/14/17 13:15 37.3 84 18 135/87 (103) 96 Room Air 05/14/17 13:15 36.6 75 17 144/95 (111) 95 Room Air 05/14/17 13:00 83 18 147/98 (114) 94 Room Air 05/14/17 12:45 79 18 149/98 (115) 95 Room Air 05/14/17 12:30 80 16 168/88 (114) 95 Room Air 05/14/17 12:30 37.3 84 16 144/89 (107) 95 Room Air 05/14/17 12:25 Room Air 05/14/17 12:20 Room Air 05/14/17 12:16 85 16 175/100 (125) 95 Room Air 05/14/17 12:00 95 Room Air 05/14/17 08:00 Nasal Cannula 2.0 05/14/17 07:54 93 Nasal Cannula 2.0 05/14/17 07:15 37.0 78 15 135/76 (95) 93 Nasal Cannula 2.0 05/14/17 05:10 96 133/73 (93) 05/14/17 04:13 36.6 70 16 119/74 (89) 92 05/14/17 04:00 Nasal Cannula 2.0 05/14/17 00:00 Nasal Cannula 2.0 05/13/17 23:59 36.6 77 16 119/75 (90) 95 05/13/17 22:49 88 20 152/90 (110) 93 Nasal Cannula 2.0 05/13/17 22:23 76 146/92 (110) 05/13/17 20:00 96 Room Air 05/13/17 18:47 37.1 79 20 154/87 (109) 97 2.0 05/13/17 17:28 145/92 05/13/17 16:48 75 16 149/85 97 2.0 Lab Results: Results Past 24 Hours Test 05/13/17 18:50 05/13/17 21:54 05/14/17 05:59 Range/Units Urine Color YELLOW Urine Appearance CLEAR CLEAR Urine pH 6.0 4.5-7.5 Urine Specific [place] 1.013 1.000-1.030 Urine Protein NEG NEG Urine Glucose (UA) NEG NEG Urine Ketones NEG NEG Urine Occult Blood NEG NEG Urine Nitrite NEG NEG Urine Bilirubin NEG NEG Urine Urobilinogen NEG NEG Urine Leukocyte Esterase NEG NEG Troponin I < 0.015 < 0.015 0-0.045 ng/ml White Blood Count 8.10 4.8-10.8 K/uL Red Blood Count 4.88 4.7-6.1 M/uL Hemoglobin 13.9 14.0-18.0 g/dL Hematocrit 41.4 42-52 % Mean Corpuscular Volume 84.8 80-100 fL Mean Corpuscular Hemoglobin 28.5 25-34 pg Mean Corpuscular Hemoglobin Concent 33.6 32-36 g/dl RDW Standard Deviation 42.8 36.4-46.3 fL RDW Coefficient of Variation 13.9 11.5-14.5 % Platelet Count 338 130-400 K/uL Mean Platelet Volume 9.1 7.4-10.4 fL Prothrombin Time 10.9 9.0-12.0 SECONDS Prothromb Time International Ratio 1.0 0.9-1.1 Sodium Level 138 136-145 mmol/L Potassium Level 4.0 3.5-5.1 mmol/L Chloride Level 102 98-107 mmol/L Carbon Dioxide Level 32 21-32 mmol/L Anion Gap 4.0 3-11 mmol/L Blood Urea Nitrogen 12 7-18 mg/dl Creatinine 1.00 0.60-1.40 mg/dl Est Creatinine Clear Calc Drug Dose 121.1 ml/min Estimated GFR () 96.4 Estimated GFR (Non- 83.2 BUN/Creatinine Ratio 12.3 10-20 Random Glucose 95 70-99 mg/dl Estimated Average Glucose 131 mg/dl Hemoglobin A1c 6.2 4.5-5.6 % Calcium Level 9.6 8.5-10.1 mg/dl Triglycerides Level 288 0-150 mg/dl Cholesterol Level 150 0-200 mg/dl HDL Cholesterol 39 mg/dl LDL Cholesterol, Calculated 53 mg/dl VLDL Cholesterol, Calculated 58 mg/dl Cholesterol/HDL Ratio 3.8
[2017-05-14] MEDS: NITROGLYCERIN 0.4 MG SL PER TAB CHARGE SL PRN (15:32)
[2017-05-14] MEDS ORDERED: NTRO1 EXT (16:02)
[2017-05-14] MEDS ORDERED: TPRSR50 PO (16:02)
--- NOTE | 2017-05-14 16:05 | Discharge Summary ---
Discharge Summary Date of Service May 14, 2017. Discharge Summary Admission Date: May 13, 2017 at 15:20 Discharge Date: May 14, 2017 Discharge Disposition: Acute care facility Principal Diagnosis: Severe CAD S/P Cath Procedures: CXR: No active disease in the chest. ECHO: * The study was technically limited. * The left ventricle is grossly normal size. * Left ventricular systolic function is normal. * Ejection Fraction = 60-65%. * Grossly normal valvular structure and function. Cardiac cath:Severe CAD Consultations: Cardiology Pending Studies/Follow-Up: Follow up with CT surgery at [facility] for further care Medication Reconciliation New Medications: Metoprolol Succinate (Metoprolol Succinate ER) 50 Mg Tabcr 50 MG PO QAM for 30 Days Nitroglycerin (Nitro-Bid) 1 Inch/Pkt Oint 1 INCH EXT Q6H for 7 Days Continued Medications: Acetaminophen (Tylenol) 500 Mg Tab 1000 MG PO PRN, 0 Refills Aspirin (Aspirin 81) 81 Mg Tab 1 PO DAILY Atorvastatin (Atorvastatin Calcium) 40 Mg Tab 40 MG PO DAILY Bupropion (Wellbutrin-Xl) 300 Mg Tabcr 300 MG PO DAILY, 0 Refills Colestipol Hcl (Colestid) 1 Gm Tab 1 GM PO BID, TAB Cyanocobalamin (Vitamin B-12 1000 Mcg) 1,000 Mcg Tab 1 TAB PO DAILY for 30 Days, #30 TAB 2 Refills Duloxetine Hcl (Cymbalta) 60 Mg Cap 60 MG PO BID, CAP Hctz/Lisinopril (Zestoretic 20MG/12.5MG) 1 Ea Tab 1 EA PO QAM Multivitamin (Multivitamin) Tab 1 TAB PO DAILY, 0 Refills Ranitidine Hcl (Zantac) 150 Mg Tab 300 MG PO HS Tapentadol Hcl (Nucynta) 100 Mg Tab 100 MG PO QID PRN for Pain Trazodone HCl (Trazodone HCl) 100 Mg Tab 200 MG PO HS Admission Information HPI (per Admitting provider): This is a 56yo M with a PMH of HTN, HLD, pre-diabetes and GERD who presents with intermittent chest pain that began 2.5 weeks ago. States that chest pain feels like extreme pressure on the L side of his chest with radiation down L arm and bilateral jaw. Usually lasts for an hour at a time with associated fatigue and shortness of breath. Pain is severe enough that patient has to lie down on the couch or floor until the episode subsides and he can resume his activity. States that episodes can occur while patient is at rest or exerting himself. Has also been experiencing bouts of palpitations with associated sweating over the past few weeks that do not coincide with CP. Initially called the [facility] on Saturday with a description of these symptoms and was told to come to the ER for further evaluation. Patient felt he had too much to do this weekend, so stayed home and continued resting during each episode and then resuming activity. After his clinic appt at the [facility] this morning, was sent to the ER for further evaluation. Received nitro, oxygen and aspirin from EMS en route to the hospital and pain decreased to a 2/10. Currently rates CP as a 2/10 in severity and is breathing comfortably on 2L NC. Denies any headache, visual changes, sweating, palpitations, SOB, abd pain, nausea, vomiting or LE swelling. Denies recent weight gain or an increase in LE swelling. Has chronic diarrhea (h/o c diff infection in 2008) and has been having 2 episodes/day. States that he has previously been seen for chest pain at the [facility]. Per records, patient had a negative nuclear stress echo in 2015, with normal ventricular wall motion and an estimated EF of 89%. Has a + family history of heart disease. Denies any previous diagnosis of CHF. Has been taking all medications regularly. Physical Exam (per Admitting): General Appearance: no apparent distress, + obese Head: normocephalic, atraumatic Eyes: normal inspection, PERRL ENT: hearing grossly normal Neck: supple, no adenopathy, thyroid normal, trachea midline Respiratory/Chest: chest non-tender, lungs clear, normal breath sounds, no respiratory distress, no accessory muscle use Cardiovascular: regular rate, rhythm, no murmur, normal peripheral pulses Abdomen/GI: normal bowel sounds, non tender, soft, no organomegaly Back: normal inspection Extremities/Musculoskelatal: normal inspection, no calf tenderness, no pedal edema Neurologic/Psych: no motor/sensory deficits, alert, normal mood/affect, oriented x 3 Skin: normal color, warm/dry Hospital Course Patient is a 56yr male with PMH of HTN, HLD, pre-diabetes and GERD who presents with intermittent chest pain that began 2.5 weeks ago. Angina/Severe CAD: S/P cardiac cath: 2 vessel disease Needs CABG Plan to start on IV heparin later today Continue ASA, Lipitor, BB NTG PRN CXR- No active disease in chest Appreciate cardiology Input HTN: Stable Continue lisinopril/hctz Pre-diabetes: A1C: 6.2 Previously taking metformin but was causing severe diarrhea HLD: Continue atorvastatin Chronic pain syndrome: Chronic lower back, lower abdominal and L testicular pain Continue home med: Nucynta, trazodone Anxiety, depression: Continue cymbalta, bupropion GERD: Continue Ranitidine IBS: Has 2 episodes of diarrhea daily (chronic) Continue Colestipol BID PRN DVT Px: IV heparin Code status: FULL PCP: Dr. Em, [facility] Dispo:Planned to be discharged to [facility] today Accepting physician Dr. Pak (CT surgery) Total time spent on discharge = 35 minutes This includes examination of the patient, discharge planning, medication reconciliation, and communication with other providers. Discharge Instructions Discharge Instructions Date of Service May 14, 2017. Admission Reason for Admission: Chest Pain Discharge Discharge Diagnosis / Problem: Severe CAD S/P Cath Discharge Goals Goal(s): Decrease discomfort, Improve function Activity Recommendations Activity Limitations: per Instructions/Follow-up section Lifting Limitations: until after follow-up appointment Exercise/Sports Limitations: until after follow-up appointment Driving or Machine Use: Driving not permitted until cleared by your PCP . Instructions / Follow-Up Instructions / Follow-Up Follow up with CT surgery at [facility] for further care Current Hospital Diet Patient's current hospital diet: AHA Diet (Heart Healthy) Discharge Diet Recommended Diet: AHA Diet (Heart Healthy) Pending Studies Studies pending at discharge: no Laboratory Results Hemoglobin A1c Test 05/14/17 05:59 Range/Units Estimated Average Glucose 131 mg/dl Hemoglobin A1c 6.2 H 4.5-5.6 % Lipid Panel Test 05/14/17 05:59 Range/Units Triglycerides Level 288 H 0-150 mg/dl Cholesterol Level 150 0-200 mg/dl HDL Cholesterol 39 mg/dl Cholesterol/HDL Ratio 3.8 LDL Cholesterol, Calculated 53 mg/dl Medical Emergencies . Who to Call and When: Medical Emergencies: If at any time you feel your situation is an emergency, please call 911 immediately. . Non-Emergent Contact Non-Emergency issues call your: Primary Care Provider, Awning Spreader Call Non-Emergent contact if: you have a fever, your pain is not controlled, your pain is worsening, your pain is unusual for you, your pain is concerning you, you have any medication questions . . "Provider Documentation" section prepared by Taco Flores. . VTE Core Measure Inpt VTE Proph given/why not?: Enoxaparin (Lovenox)SQ <Electronically signed by Taco Flores MD> Signed: 05/14/17 [id number] Signed: The status of this report is Signed * If report status is Draft, the document has not been finalized by the responsible provider.
[2017-05-14] MEDS ORDERED: HEPARIN 25,000 UNIT/500ML D5W 500 ML IV PRN (20:30)
[2017-05-14] MEDS: RANITIDINE HCL 150 MG TAB PO SCH (21:07)
[2017-05-14] MEDS: TRAZODONE HCL 100 MG TAB PO SCH (21:07)
[2017-05-15] MEDS: SODIUM CHLORIDE 0.9% 1000ML 1,000 ML IV SCH (00:24)
[2017-05-15] MEDS: NITROGLYCERIN OINT 2% 1GM PACKET EXT SCH (00:25)
[2017-05-15] MEDS ORDERED: METOPROLOL SUCC 25MG EXT REL TAB PO SCH (09:00)
[2017-05-15] MEDS ORDERED: METOPROLOL SUCC 50MG EXT REL TAB PO SCH (09:00)
[2017-05-23] MEDS ORDERED: AMIO200T4 PO (11:32)
[2017-05-28] MEDS ORDERED: PRED20TA PO (11:32)
== END 2017-05-15 00:40 | disposition short-term general hospital (02) ==
LOC: EDBD 13:04 → C.EDC 13:06 → C.MED 15:20 → ENRESERV 16:33 → C.2T 05-14 12:05
PROVIDERS: ADMIT Hospitalist; ATTEND Internal Medicine
DX: R07.2 Precordial pain (principal); I25.10 Atherosclerotic heart disease of native coronary artery without angina pectoris; I47.1 Supraventricular tachycardia; F41.9 Anxiety disorder, unspecified; F32.9 Major depressive disorder, single episode, unspecified; K21.9 Gastro-esophageal reflux disease without esophagitis; I25.2 Old myocardial infarction; E78.5 Hyperlipidemia, unspecified; I10 Essential (primary) hypertension; E66.01 Morbid (severe) obesity due to excess calories; R73.03 Prediabetes; Z82.49 Family history of ischemic heart disease and other diseases of the circulatory system; Z83.3 Family history of diabetes mellitus; Z87.891 Personal history of nicotine dependence; Z79.82 Long term (current) use of aspirin

== ENCOUNTER 2017-05-29 09:59 | Emergency (ER) | payer BC, OTHER ==
[~2017-05-29] VITALS: Ht 177.8 cm; Wt 146.8 kg
[~2017-05-29 09:59] MED LIST changes: -ABL5 PO; +AMIO200T4 PO; -AMLO-110 PO; +ASPI-435 PO; -CLS1 PO; +COLE1TAB PO; -CRS20 PO; +CYAN10004 PO; -CYM60 PO; +DSY100 PO; +DULO60CA44 PO; -LANS15CA15 PO; -LORA-741 PO; +LPT40 PO; -METF500T PO; +NTRO1 EXT; +PRED20TA PO; +TAPE100T2 PO; +TPRSR50 PO; -TRZUNK PO; -[UNRECOGNIZED DRUG - CODE] PO
[2017-05-29 10:02] VITALS: TEMP 37.2; Ht 177.8 cm; Wt 146.8 kg
[2017-05-29] MEDS ORDERED: ALBUT/IPRATROP 3MG/0.5MG NEB 3 ML VIAL INH STA (10:35)
[2017-05-29 10:40] VITALS: O2SAT 90
--- NOTE | 2017-05-29 10:53 | DIAGNOSTIC IMAGING REPORT ---
CHEST ONE VIEW PORTABLE CLINICAL HISTORY: Shortness of breath COMPARISON STUDY: 05/13/2017 FINDINGS: The heart is borderline enlarged. There are postsurgical changes of a midline sternotomy. There is no focal pulmonary consolidation. There is no failure. There are no pleural effusions. The study is limited from a technical standpoint due to the patient's large body habitus and mild respiratory motion artifact. Slight diminished attenuation left hemithorax likely relates to technical factors.[ IMPRESSION: Interval midline sternotomy. No acute findings. Electronically signed by: Bala Hunter M.D. 05/29/2017 10:52 AM Dictated Date/Time: 05/29/2017 10:51 AM
[2017-05-29 11:01] LABS: BASO % 0.1 %; BASO ABS # 0.01 K/uL (0-0.2); COMPLETE YES; EOS % 0.1 %; HEMATOCRIT 28.9 % (42-52); IG% 0.5 %; LYMPH % 4.5 %; LYMPH ABS # 0.77 K/uL (1.2-3.4); MEAN CELL VOLUME 85.8 fL (80-100); MEAN CORPUSCULAR HEMOGLOBIN 27.6 pg (25-34); MEAN CORPUSCULAR HGB CONC 32.2 g/dl (32-36); MEAN PLATELET VOLUME 8.6 fL (7.4-10.4); MONO % 1.4 %; NEUT % 93.4 %; PLATELET COUNT 591 K/uL (130-400); RED BLOOD COUNT 3.37 M/uL (4.7-6.1); WHITE BLOOD COUNT 17.23 K/uL (4.8-10.8)
[2017-05-29 11:14] LABS: BUN/CREATININE RATIO 13.3 (10-20); CALCIUM 9.1 mg/dl (8.5-10.1); CREATININE 1.1 mg/dl (0.60-1.40); POTASSIUM 4.3 mmol/L (3.5-5.1)
[2017-05-29 11:15] LABS: INR 2.4 (0.9-1.1); PARTIAL THROMBOPLASTIN RATIO 1.6; PROTHROMBIN TIME (PATIENT) 27.2 SECONDS (9.0-12.0)
[2017-05-29 11:18] LABS: ALB/GLOB RATIO 0.8 (0.9-2); CKMB/CK RATIO 1.7 (0-3.0)
[2017-05-29] MEDS ORDERED: OPTIRAY 320 IV PRN (11:30)
[2017-05-29] MEDS ORDERED: METO25TA56 PO (11:32)
[2017-05-29] MEDS ORDERED: TAMS0.4C38 PO (11:32)
[2017-05-29] MEDS ORDERED: TRAZ300T PO (11:32)
[2017-05-29] MEDS ORDERED: LISI-461 PO (11:32)
[2017-05-29] MEDS ORDERED: FRS/40 PO (11:32)
[2017-05-29] MEDS ORDERED: VNTHFA/IN INH (11:32)
[2017-05-29] MEDS ORDERED: WARF5TAB90 PO (11:32)
[2017-05-29] MEDS ORDERED: BENZ100C6 PO (11:32)
[2017-05-29] MEDS ORDERED: OXYC-164 PO (11:32)
[2017-05-29] MEDS ORDERED: FLUT0.15 NAE (11:32)
[2017-05-29] MEDS ORDERED: ABL/15 PO (11:32)
--- NOTE | 2017-05-29 12:09 | DIAGNOSTIC IMAGING REPORT ---
CHEST CTA for PULMONARY ARTERIES CT DOSE: 572.78 mGycm HISTORY: Short of breath. Coughing. Status post cardiac bypass. TECHNIQUE: Multiaxial CT images of the chest were performed following the intravenous administration of contrast to evaluate the pulmonary arteries. Maximal intensity projection images were also obtained. A dose lowering technique was utilized adhering to the principles of ALARA. COMPARISON STUDY: Chest 05/29/2017. FINDINGS: Old mild anterior wedge-shaped compression deformity within the T9 vertebral body. Small bilateral pleural effusions. Trace pericardial effusion. Recent midline sternotomy. Expected nonunion of the sternal edges. Mild soft tissue thickening/edema at the sternotomy is consistent with the recent postoperative change. No loculated fluid collections at this time to suggest an abscess. The visualized liver, spleen, and adrenal glands are unremarkable. No mediastinal or hilar lymphadenopathy. The heart is normal in size. Normal caliber thoracic aorta with no evidence for dissection. Small amount of mucoid material within the trachea. No pneumothorax. Bilateral lower lobe posterior densities favor atelectasis. A 3 mm indeterminate pulmonary nodule within the left lower lobe on image 50 of 115. The bypass grafts appear patent. Calcifications within the [place] coronary arteries. No pneumothorax. Small focal area of groundglass opacification within the anteromedial aspect of the lingula. This favors postoperative change/atelectasis. Additional linear density lung bases are also likely represent subsegmental atelectasis. Nondiagnostic evaluation of the majority of the subsegmental pulmonary arteries due to the motion artifact. Otherwise, the remaining pulmonary arteries show no filling defects to suggest pulmonary embolus. IMPRESSION: 1. No evidence for pulmonary embolus with limitations as described above. 2. Small bilateral pleural effusions. 3. Recent poststernotomy changes for cardiac bypass. 4. Trace pericardial effusion. 5. Bibasilar densities are nonspecific but favor atelectasis. Electronically signed by: Jean-Claude Salamanca M.D. 05/29/2017 12:08 PM Dictated Date/Time: 05/29/2017 11:50 AM
[2017-05-29] MEDS ORDERED: OXYCODONE HCL IR 5 MG TAB (IMMEDIATE RELEASE) PO STA (12:57)
[2017-05-29 13:11] VITALS: BP 142/72; PULSE 80; O2SAT 97
--- NOTE | 2017-05-29 13:18 | EMERGENCY ROOM VISIT NOTE ---
History Report prepared by Brandie: Álvaro Kendrick Under the Supervision of: Dr. Thuan Mathew D.O. First contact with patient: 10:34 Chief Complaint: SHORTNESS OF BREATH Stated Complaint: 05/15-TRIPLE BYPASS, SOB Nursing Triage Summary: Pt had triple bypass on 05/15 in [place], discharged last . Pt had labwork and cxr yesterday. WBC is 20, bp reported 90 systolic. Concerned for sepsis. Increased SOB. CP with cough. History of Present Illness The patient is a 56 year old male who presents to the Emergency Room with complaints of constant shortness of breath for the past couple of days which is worsened with exertion. The patient states that on the he got a triple bypass surgery after having chest heaviness. He states that he has not felt well since the surgery, though his chest heaviness is gone. He states that he has some chest pain when he coughs, and he states that he is coughing up green phlegm. He states that he went to see a PA yesterday, and they told him to get antibiotics, however he states that he was too weak to get them himself, and he states that this weakness is new after the surgery. He additionally states that he is having a decreased appetite. The patient's WBC was 20, and he was hypotensive with a slight fever. The patient is also complaining of some diarrhea and difficulty urinating. Source of History: patient Onset: the past couple of days Position: other (global) Quality: other (shortness of breath) Timing: constant Modifying Factors (Worsening): exertion Associated Symptoms: + cough, + diarrhea, + urinary symptoms Review of Systems See HPI for pertinent positives & negatives. A total of 10 systems reviewed and were otherwise negative. Past Medical & Surgical Medical Problems: (1) Anxiety (2) Chronic pain syndrome (3) Depression (4) GERD (gastroesophageal reflux disease) (5) HLD (hyperlipidemia) (6) Hypertension (7) Irritable bowel syndrome (8) Morbid obesity with BMI of 45.0-49.9, adult (9) Pre-diabetes Family History Cancer Diabetes mellitus Heart disease Social History Smoking Status: Former Smoker Drug Use: none Marital Status: Occupation Status: employed Current/Historical Medications Scheduled Acetaminophen (Tylenol), 1,000 MG PO PRN Albuterol Hfa (Ventolin Hfa), 2-4 PUFFS INH Q6H Amiodarone Hcl (Cordarone), 200 MG PO UD Aripiprazole (Abilify), 15 MG PO DAILY Aspirin (Aspirin 81), 2 TAB PO DAILY Bupropion (Wellbutrin-Xl), 300 MG PO DAILY Cyanocobalamin (Vitamin B-12 1000 Mcg), 1 TAB PO DAILY Duloxetine Hcl (Cymbalta), 60 MG PO QAM Fluticasone Propionate (Nasal) (Flonase Allergy Relief), 2 SPRAYS RASHAUN DAILY Furosemide (Lasix), 40 MG PO DAILY Lisinopril (Zestril), 10 MG PO DAILY Metoprolol Tartrate (Lopressor) (Lopressor), 25 MG PO BID Multivitamin (Multivitamin), 1 TAB PO DAILY Nitroglycerin (Nitro-Bid), 1 INCH EXT Q6H Prednisone (Prednisone), 2 TAB PO DAILY Tamsulosin Hcl (Flomax), 0.4 MG PO DAILY Trazodone Hcl (Desyrel), 300 MG PO HS Warfarin Sodium (Coumadin), 5 MG PO UD Scheduled PRN Benzonatate (Tessalon Perles), 100 MG PO BID PRN for Cough Colestipol Hcl (Colestid), 1 GM PO BID PRN for Diarrhea Oxycodone Hcl (Oxycodone Hcl), 1 TAB PO TID PRN for Pain Allergies Coded Allergies: Adhesives (Verified Allergy, Unknown, `, 05/29/17) Poison [place] Extract/Poison [place] Extra (Verified Allergy, Unknown, `, 05/29/17 ) Physical Exam Vital Signs Date Time Temp Pulse Resp B/P (MAP) Pulse Ox O2 Delivery O2 Flow Rate FiO2 05/29/17 13:11 80 18 142/72 97 Nasal Cannula 2.0 05/29/17 13:09 78 05/29/17 12:00 69 18 151/76 93 Nasal Cannula 3.0 05/29/17 10:40 90 Room Air 05/29/17 10:28 84 05/29/17 10:02 37.2 85 24 112/64 91 Room Air Physical Exam CONSTITUTIONAL/VITAL SIGNS: Reviewed / noted above. GENERAL: Non-toxic in appearance. INTEGUMENTARY: Warm, dry, and [place]. HEAD: Normocephalic. EYES: without scleral icterus or trauma. ENT/OROPHARYNX: clear and moist. LYMPHADENOPATHY/NECK: Is supple without lymphadenopathy or meningismus. RESPIRATORY: Lungs clear and equal. CARDIOVASCULAR: Regular rate and rhythm. CHEST: There is a midsternal post-surgical wound which is healing appropriately. No signs of infection. There are areas of ecchymosis on the chest and abdomen which are most likely consistent with recent surgery and hospitalization. GI/ABDOMEN: Soft and nontender. No organomegaly or pulsatile mass. No rebound or guarding. Normal bowel sounds. EXTREMITIES: Warm and well perfused. BACK: No CVA tenderness. NEUROLOGICAL: Intact without focal deficits. PSYCHIATRIC: normal affect. MUSCULOSKELETAL: Normally developed with good muscle tone. Medical Decision & Procedures ER Provider Diagnostic Interpretation: Radiology results as stated below per my review and radiologist interpretation: CHEST ONE VIEW PORTABLE CLINICAL HISTORY: Shortness of breath COMPARISON STUDY: 05/13/2017 FINDINGS: The heart is borderline enlarged. There are postsurgical changes of a midline sternotomy. There is no focal pulmonary consolidation. There is no failure. There are no pleural effusions. The study is limited from a technical standpoint due to the patient's large body habitus and mild respiratory motion artifact. Slight diminished attenuation left hemithorax likely relates to technical factors.[ IMPRESSION: Interval midline sternotomy. No acute findings. Electronically signed by: Bala Hunter M.D. 05/29/2017 10:52 AM Dictated Date/Time: 05/29/2017 10:51 AM CHEST CTA for PULMONARY ARTERIES CT DOSE: 572.78 mGycm HISTORY: Short of breath. Coughing. Status post cardiac bypass. TECHNIQUE: Multiaxial CT images of the chest were performed following the intravenous administration of contrast to evaluate the pulmonary arteries. Maximal intensity projection images were also obtained. A dose lowering technique was utilized adhering to the principles of ALARA. COMPARISON STUDY: Chest 05/29/2017. FINDINGS: Old mild anterior wedge-shaped compression deformity within the T9 vertebral body. Small bilateral pleural effusions. Trace pericardial effusion. Recent midline sternotomy. Expected nonunion of the sternal edges. Mild soft tissue thickening/edema at the sternotomy is consistent with the recent postoperative change. No loculated fluid collections at this time to suggest an abscess. The visualized liver, spleen, and adrenal glands are unremarkable. No mediastinal or hilar lymphadenopathy. The heart is normal in size. Normal caliber thoracic aorta with no evidence for dissection. Small amount of mucoid material within the trachea. No pneumothorax. Bilateral lower lobe posterior densities favor atelectasis. A 3 mm indeterminate pulmonary nodule within the left lower lobe on image 50 of 115. The bypass grafts appear patent. Calcifications within the [place] coronary arteries. No pneumothorax. Small focal area of groundglass opacification within the anteromedial aspect of the lingula. This favors postoperative change/atelectasis. Additional linear density lung bases are also likely represent subsegmental atelectasis. Nondiagnostic evaluation of the majority of the subsegmental pulmonary arteries due to the motion artifact. Otherwise, the remaining pulmonary arteries show no filling defects to suggest pulmonary embolus. IMPRESSION: 1. No evidence for pulmonary embolus with limitations as described above. 2. Small bilateral pleural effusions. 3. Recent poststernotomy changes for cardiac bypass. 4. Trace pericardial effusion. 5. Bibasilar densities are nonspecific but favor atelectasis. Electronically signed by: Jean-Claude Salamanca M.D. 05/29/2017 12:08 PM Dictated Date/Time: 05/29/2017 11:50 AM Laboratory Results 05/29/17 10:25 Red Blood Count 3.37, Mean Corpuscular Volume 85.8, Mean Corpuscular Hemoglobin 27.6, Mean Corpuscular Hemoglobin Concent 32.2, Mean Platelet Volume 8.6, Neutrophils (%) (Auto) 93.4, Lymphocytes (%) (Auto) 4.5, Monocytes (%) (Auto) 1.4, Eosinophils (%) (Auto) 0.1, Basophils (%) (Auto) 0.1, Neutrophils # (Auto) 16.12, Lymphocytes # (Auto) 0.77, Monocytes # (Auto) 0.24, Eosinophils # (Auto) 0.01, Basophils # (Auto) 0.01 05/29/17 10:25 Test 05/29/17 10:25 White Blood Count 17.23 K/uL (4.8-10.8) Red Blood Count 3.37 M/uL (4.7-6.1) Hemoglobin 9.3 g/dL (14.0-18.0) Hematocrit 28.9 % (42-52) Mean Corpuscular Volume 85.8 fL (80-100) Mean Corpuscular Hemoglobin 27.6 pg (25-34) Mean Corpuscular Hemoglobin Concent 32.2 g/dl (32-36) Platelet Count 591 K/uL (130-400) Mean Platelet Volume 8.6 fL (7.4-10.4) Neutrophils (%) (Auto) 93.4 % Lymphocytes (%) (Auto) 4.5 % Monocytes (%) (Auto) 1.4 % Eosinophils (%) (Auto) 0.1 % Basophils (%) (Auto) 0.1 % Neutrophils # (Auto) 16.12 K/uL (1.4-6.5) Lymphocytes # (Auto) 0.77 K/uL (1.2-3.4) Monocytes # (Auto) 0.24 K/uL (0.11-0.59) Eosinophils # (Auto) 0.01 K/uL (0-0.5) Basophils # (Auto) 0.01 K/uL (0-0.2) RDW Standard Deviation 44.4 fL (36.4-46.3) RDW Coefficient of Variation 14.4 % (11.5-14.5) Immature Granulocyte % (Auto) 0.5 % Immature Granulocyte # (Auto) 0.08 K/uL (0.00-0.02) Prothrombin Time 27.2 SECONDS (9.0-12.0) Prothromb Time International Ratio 2.4 (0.9-1.1) Activated Partial Thromboplast Time 40.4 SECONDS (21.0-31.0) Partial Thromboplastin Ratio 1.6 Anion Gap 9.0 mmol/L (3-11) Est Creatinine Clear Calc Drug Dose 107.4 ml/min Estimated GFR () 85.9 Estimated GFR (Non- 74.1 BUN/Creatinine Ratio 13.3 (10-20) Calcium Level 9.1 mg/dl (8.5-10.1) Total Bilirubin 0.7 mg/dl (0.2-1) Aspartate Amino Transf (AST/SGOT) 19 U/L (15-37) Alanine Aminotransferase (ALT/SGPT) 50 U/L (12-78) Alkaline Phosphatase 90 U/L (45-117) Total Creatine Kinase 108 U/L (39-308) Creatine Kinase MB 1.8 ng/ml (0.5-3.6) Creatine Kinase MB Ratio 1.7 (0-3.0) Troponin I 0.024 ng/ml (0-0.045) Total Protein 7.1 gm/dl (6.4-8.2) Albumin 3.1 gm/dl (3.4-5.0) Globulin 4.0 gm/dl (2.5-4.0) Albumin/Globulin Ratio 0.8 (0.9-2) Laboratory results as stated above per my review. Medications Administered Medications (Trade) Dose Ordered Sig/Samira Route Start Time Stop Time Status Last Admin Dose Admin Albuterol/ Ipratropium (Duoneb) 3 ml NOW STAT INH 05/29/17 10:35 05/29/17 10:36 DC 05/29/17 10:49 3 ML Oxycodone HCl (Roxicodone Immediate Rel Tab) 10 mg NOW STAT PO 05/29/17 12:57 05/29/17 12:58 DC 05/29/17 13:13 10 MG ECG Indication: SOB/dyspnea Rate (beats per minute): 85 Rhythm: normal sinus Findings: no ectopy, other (No acute injury) ED Course 1035: DuoNeb 3ml INH 1102: Previous medical records were reviewed. The patient was evaluated in room B11. A complete history and physical examination was performed. 1257: Oxycodone HCl 10ml PO 1305: On reevaluation, the patient is doing better. I discussed the results and findings with the patient. She verbalized agreement of the treatment plan. She was discharged home. Medical Decision Differential includes acute coronary syndrome, myocardial infarction, CVA, TIA, anemia, infection, pneumonia, UTI, pyelonephritis, poor nutrition, dehydration, electrolyte disturbance,hypoglycemia. This is a 56-year-old male who presents to the ED with a chief complaint of shortness of breath. The patient had triple vessel bypass surgery on 05/15/17. He was discharged 6 days ago. The patient was seen by the physician therapy assistant yesterday and started on antibiotics for possible infection. The patient presents today with a chief complaint of shortness of breath as well as some generalized weakness and shortness of breath seems to be worsened with exertion. The patient reports a slight cough with a green productive sputum. He is on antibiotics currently. The patient's pulse ox was 91-93% on room air. The patient's EKG shows a normal sinus rhythm. Chest x-ray was negative for acute disease. Chest x-ray did not show acute disease. CT scan of the chest did not show PE or other acute processes. Glucose is 153. INR is 2.4. White blood cell count 17.2. He is currently on prednisone. Hemoglobin was 9.3. The patient was told the results of the tests. He was given a DuoNeb treatment and states this helped him immensely. He does have inhalers at home. He is felt to be stable for discharge. Medication Reconcilliation Current Medication List: was personally reviewed by me Blood Pressure Screening Patient's blood pressure: Elevated blood pressure Blood pressure disposition: Elevated BP felt to be situational Impression Primary Impression: Dyspnea Scribe Attestation The scribe's documentation has been prepared under my direction and personally reviewed by me in its entirety. I confirm that the note above accurately reflects all work, treatment, procedures, and medical decision making performed by me. Departure Information Dispostion Home / Self-Care Referrals No Doctor, Assigned (PCP) Patient Instructions My [facility] Additional Instructions Follow-up with your doctor for further care and evaluation in 1-2 days. Return to the emergency department for worsening or new symptoms or any concerns. You have been examined and treated today on an emergency basis only. This is not a substitute for, or an effort to provide, complete comprehensive medical care. It is impossible to recognize and treat all injuries or illnesses in a single emergency department visit. It is therefore important that you follow up closely with your doctor. Call as soon as possible for an appointment. Use your inhalers as needed. Continue your antibiotic and other medications prescribed.
[2017-05-29] MEDS ORDERED: CEFD1CAP14 PO (13:41)
== END 2017-05-29 13:50 | disposition home or self-care (01) ==
LOC: C.EDB 10:02
DX: R06.00 Dyspnea, unspecified (principal); I10 Essential (primary) hypertension; E78.5 Hyperlipidemia, unspecified; F32.9 Major depressive disorder, single episode, unspecified; F41.9 Anxiety disorder, unspecified; K58.9 Irritable bowel syndrome, unspecified; K21.9 Gastro-esophageal reflux disease without esophagitis; R73.03 Prediabetes; Z87.891 Personal history of nicotine dependence; Z79.01 Long term (current) use of anticoagulants; Z79.82 Long term (current) use of aspirin; Z79.899 Other long term (current) drug therapy; Z91.09 Other allergy status, other than to drugs and biological substances; Z80.9 Family history of malignant neoplasm, unspecified; Z83.3 Family history of diabetes mellitus; Z82.49 Family history of ischemic heart disease and other diseases of the circulatory system

== ENCOUNTER → 2017-08-02 | Day surgery (SDC) | payer BC, OTHER ==
[2017-07-19 13:05] VITALS: BMI 44.0
[~2017-08-02] VITALS: Ht 180.3 cm; Wt 143.2 kg
[~2017-08-02] MED LIST changes: -ACET-1256 PO; -AMIO200T4 PO; +ATOR-26 PO; -CYAN10004 PO; -DSY100 PO; -LPT40 PO; -LSN/20125 PO; +METO25TA56 PO; -MULT-506 PO; -NTRO1 EXT; -PRED20TA PO; +TAMS0.4C38 PO; -TPRSR50 PO; +TRAZ300T PO; -ZNT/150 PO; +ZNTT/150 PO
[2017-08-02 10:00] VITALS: Ht 180.3 cm; Wt 143.2 kg
--- NOTE | 2017-08-02 10:27 | Endo History and Physical ---
History & Physical Date of Service: Aug 02, 2017. Chief Complaint: HISTORY OF POLYPS Referring Physician: DR. HOUSER / DR. JUHI Santacruz History of Present Illness H/o polyps Past Surgical History Hx Cardiac Surgery: Yes (HEART CATH/NO STENTS, CABG-3 VESSELS) Hx Internal Defibrillator: No Hx Pacemaker: No Hx Abdominal Surgery: Yes (ABDOMINAL HERNIA X 2, ILLEO INGUINAL RESECTION) Hx of Implantable Prosthesis: No Hx Post-Op Nausea and Vomiting: No Hx Cancer Surgery: No Hx Thoracic Surgery: No Hx Orthopedic: Yes (LEFT LEG SURGERY X 2 (TUMOR/LESION REMOVALS), RT ELBOW NERVE TRANSPOSITION) Hx Urinary Tract Surgery: No Family History None Social History Smoking Status: Former Smoker Hx Substance Use: No Hx Alcohol Use: Yes (NONE SINCE 05/2017 (CABG SX), PAST HX 5 DRINKS WEEKLY) Allergies Coded Allergies: Adhesives (Verified Allergy, Unknown, `, 07/19/17) NO KNOWN DRUG ALLERGIES (Verified Allergy, Unknown, ., 07/19/17) Poison Jo-Ann Extract/Poison [place] Extra (Verified Allergy, Unknown, `, ) Current Medications Reported Home Medications Medications Dose Route/Sig Max Daily Dose Days Date Category Dose Instructions Lopressor (Metoprolol Tartrate) 25 Mg Tab 1 Dose PO BID 07/19/17 Reported 2 TABS IN AM 1 TAB IN AFTERNOON Zantac (Ranitidine HCl) 150 Mg Tab 2 Tab PO HS 07/19/17 Reported Lipitor (Atorvastatin Calcium) 80 Mg Tab 80 Mg PO QPM 07/19/17 Reported Nucynta (Tapentadol Hcl) 100 Mg Tab 1 Tab PO QID PRN 07/19/17 Reported Flomax (Tamsulosin Hcl) 0.4 Mg Cap 0.4 Mg PO HS 05/29/17 Reported Desyrel (Trazodone Hcl) 300 Mg Tab 300 Mg PO HS 05/29/17 Reported Aspirin 81 (Aspirin) 81 Mg Tab 2 Tab PO QAM 05/13/17 Reported Cymbalta (Duloxetine Hcl) 60 Mg Cap 60 Mg PO QAM 05/13/17 Reported Colestid (Colestipol Hcl) 1 Gm Tab 1 Gm PO BID PRN 05/13/17 Reported Wellbutrin-Xl (Bupropion HCl) 300 Mg Tabcr 300 Mg PO QAM 09/15/10 Reported Vital Signs Weight (Kilograms): 143.18 Height (Feet): 5 Height (Inches): 11 Date Time Temp Pulse Resp B/P (MAP) Pulse Ox O2 Delivery O2 Flow Rate FiO2 08/02/17 10:00 36.9 61 18 146/91 (109) 93 Physical Exam General Appearance: no apparent distress Respiratory/Chest: Respiratory effort: no dyspnea Cardiovascular: Heart Auscultation: RRR Abdomen: Inspection & Palpation: soft Assessment and Plan H/o polyps - cscopy
--- NOTE | 2017-08-02 12:22 | Discharge Instructions ---
Endoscopy Patient Instructions Date / Procedure(s) Performed Aug 02, 2017. Colonoscopy Allergy Information Coded Allergies: Adhesives (Verified Allergy, Unknown, `, 07/19/17) NO KNOWN DRUG ALLERGIES (Verified Allergy, Unknown, ., 07/19/17) Poison Jo-Ann Extract/Poison [place] Extra (Verified Allergy, Unknown, `, ) Discharge Date / Findings Aug 02, 2017. Diminutive polyps x 3 Tattoo and scar in cecum Medication Instructions Stopped Medication(s): TOOK 2 ASA LAST EVENING Resume aspirin today Provider Instructions Activity Restrictions - No exercising or heavy lifting for 24 hours. - Do not drink alcohol the day of the procedure. - Do not drive a car or operate machinery until the day after the procedure. - Do not make any important decisions or sign important papers in 24 hours after the procedure. Following Day: - Return to full activity which may include returning to work/school. Diet Start your diet with liquids and light foods (jello, soup, juice, toast). Then eat your usual diet if not nauseated. Treatment For Common After Affects For mild abdominal pain, bloating, or excessive gas: - Rest - Eat lightly - Lie on right side Follow-Up Information Follow-up with DR. HOUSER / DR. JUHI Santacruz as scheduled Anesthesia Information What You Should Know You have had a procedure that required some medicine to reduce anxiety and discomfort. This treatment is called moderate sedation. After receiving the treatment, you may be sleepy, but you will be able to breathe on your own. The effects of the treatment may last for several hours. Follow these instructions along with Activity/Diet recommendations noted above: * Do NOT do anything where dizziness or clumsiness would be dangerous. * Rest quietly at home today, then you can be up and about tomorrow. * Have a responsible person stay with you the rest of today. * You may have had an I.V. today. If so, you may take the dressing off later today. Recommendations Call your doctor if: * Trouble breathing * Continuous vomiting for more than 24 hours * Temperature above 101 degrees * Severe abdominal pain or bloating * Pain not relieved by pain medicine ordered * There is increased drainage or redness from any incision * A large amount of rectal bleeding greater than 2-3 tablespoons. (If you had a polyp/s removed or have hemorrhoids, a small amount of blood - from the rectum is to be expected.) * You have any unanswered questions or concerns. IN THE EVENT OF A SERIOUS EMERGENCY, GO TO THE NEAREST EMERGENCY ROOM Your discharge instructions were prepared by provider Ximena Vanegas. Patient Instructions Signature Page Henri Gutierrez Patient (or Guardian) Signature/Date: I have read and understand the instructions given to me by my caregivers. Caregiver/RN/Doctor Signature/Date: The above-named patient and/or guardian has received patient instructions on this date. + Original Patient Signature Page (only) stays with chart. Please make copy for patient.
--- NOTE | 2017-08-02 12:22 | GI REPORT ---
Procedure Date: 08/02/2017 11:26 AM Procedure: Colonoscopy Indications: High risk colon cancer surveillance: Personal history of colonic polyps Medicines: See the Anesthesia note for documentation of the administered medications Complications: No immediate complications. Estimated Blood Loss: Estimated blood loss: none. Procedure: Pre-Anesthesia Assessment: - ASA Grade Assessment: III - A patient with severe systemic disease. After I obtained informed consent, the scope was passed under direct vision. Throughout the procedure, the patient's blood pressure, pulse, and oxygen saturations were monitored continuously. The scope was introduced through the anus and advanced to the terminal ileum. The colonoscopy was performed without difficulty. The patient tolerated the procedure well. The quality of the bowel preparation was good. Findings: The perianal and digital rectal examinations were normal. A post polypectomy scar was found in the cecum. Three sessile polyps were found in the transverse colon and at the hepatic flexure. The polyps were 1 to 2 mm in size. These polyps were removed with a cold biopsy forceps. Resection and retrieval were complete. The exam was otherwise without abnormality. Impression: - Post-polypectomy scar in the cecum. - Three 1 to 2 mm polyps in the transverse colon and at the hepatic flexure, removed with a cold biopsy forceps. Resected and retrieved. Recommendation: - Discharge patient to home. - Repeat colonoscopy in 3 years for surveillance. Ximena Alexander M.D. Ximena Alexander MD 08/02/2017 12:21:53 PM This report has been signed electronically. Note Initiated On: 08/02/2017 11:26 AM I attest to the content of the Intraoperative Record and orders documented therein, exceptions below
[2017-08-02 12:44] VITALS: BP 145/100; PULSE 57; O2SAT 96
--- NOTE | 2017-08-02 12:51 | Anesthesiology Progress Note ---
Anesthesia Post Op Note Date & Time Aug 02, 2017 at 12:51 Vital Signs Pain Intensity: 0 Vital Signs Past 12 Hours Date Time Temp Pulse Resp B/P (MAP) Pulse Ox O2 Delivery O2 Flow Rate FiO2 08/02/17 12:44 57 14 145/100 (115) 96 08/02/17 12:30 57 12 163/108 (126) 96 08/02/17 12:14 59 12 119/64 (82) 95 08/02/17 10:00 36.9 61 18 146/91 (109) 93 Notes Mental Status: alert / awake / arousable, participated in evaluation Pt Amnestic to Procedure: Yes Nausea / Vomiting: adequately controlled Pain: adequately controlled Airway Patency, RR, SpO2: stable & adequate BP & HR: stable & adequate Hydration State: stable & adequate Anesthetic Complications: no major complications apparent
== END | disposition home or self-care (01) ==
LOC: C.GI 09:35
PROVIDERS: ATTEND Internal Medicine Gastroenterology
DX: Z12.11 Encounter for screening for malignant neoplasm of colon (principal); D12.2 Benign neoplasm of ascending colon; Z86.010 Personal history of colon polyps; G47.33 Obstructive sleep apnea (adult) (pediatric); Z95.1 Presence of aortocoronary bypass graft; I25.2 Old myocardial infarction; I10 Essential (primary) hypertension; Z98.890 Other specified postprocedural states; Z79.899 Other long term (current) drug therapy; Z87.891 Personal history of nicotine dependence

== ENCOUNTER → 2017-08-12 | Outpatient (CLI) | payer BC, OTHER ==
[2017-08-12 15:54] LABS: BLOOD UREA NITROGEN 8 mg/dl (7-18); BUN/CREATININE RATIO 8.2 (10-20); CARBON DIOXIDE 28 mmol/L (21-32); CHLORIDE 102 mmol/L (98-107); CREATININE 0.95 mg/dl (0.60-1.40); GLUCOSE 122 mg/dl (70-99); POTASSIUM 3.7 mmol/L (3.5-5.1); SODIUM 138 mmol/L (136-145)
== END | disposition home or self-care (01) ==
LOC: C.LAB 14:24
PROVIDERS: ATTEND Specialist
DX: R06.09 Other forms of dyspnea (principal)

== ENCOUNTER → 2017-09-12 | Outpatient (CLI) | payer BC, OTHER ==
[~2017-09-12] VITALS: Ht 180.3 cm; Wt 148.8 kg
[2017-09-12 10:58] VITALS: BP 115/77; PULSE 75; Ht 180.3 cm; Wt 148.8 kg
== END | disposition home or self-care (01) ==
LOC: C.NEUR 10:15
PROVIDERS: ATTEND Internal Medicine Pulmonary Disease
DX: G47.33 Obstructive sleep apnea (adult) (pediatric) (principal)

== ENCOUNTER → 2017-10-10 | Outpatient (CLI) | payer BC, OTHER ==
[~2017-10-10] MED LIST changes: +RANI150T85 PO; -ZNTT/150 PO
--- NOTE | 2017-10-11 05:58 | SPLIT NIGHT TECHNICIAN REPORT ---
[facility] Split Night Polysomnogram - Personal Care Worker Report Study date: 10/10/2017 Referring Physician: Dr. Heron Talley DO Name: GERMÁN GUTIERREZ Personal Care Worker[facility] Date [facility] : 1960 Height: 57 years, Height 5' 11" Sex: Male Weight: 328.1 lbs Age: 57 Neck Circum: 19.5 inches BMI: Medications: 45.76 Aspirin 81 mg, Bupropion 300 mg, Colestid 1 gm, Cymbalta 60 mg, Flonase 50 mcg, Furosemide 40 mg, Metoprolol 25 mg, Nucynta 100 mg, Oxygen 2 lpm, , Ranitidine 150 mg, Rosuvastatin 40 mg, Tamsulosin 0.4 mg, Trazodone 100 mg Patient History 57 yr. old male here for a modified split night sleep study (split to Bi-PAP if AHI >15). Test started on room air. Patient complains of snoring. He has had positive PSG's in the past but could not tolerate CPAP. ESS 2/24. Parameters Monitored NPSG: E1-M2, E2-M1, Fp1-M2, Fp2-M1, F3-M2, F4-M2, F4-M1, C3-M2, C4-M2, C4-M1, O1-M2, O2-M2, O2-M1, T3-M2, T4-M1, P3-M2, P4-M1, CHIN1, CHIN2, HR, EKG, Legs, PFLOW, SNOR, FLOW, CFLOW, Tidal Volume, THOR, ABDO, SpO2, PLTH, CPRESS, ETCO2 Wave, ETCO2, pH SLEEP SUMMARY DATA DIAGNOSTIC TREATMENT Lights Out: 9:28:25 PM 11:48:25 PM Lights On: 11:44:25 PM 5:15:25 AM Total Recording Time (TRT): 134.0 min. 327.0 min. Total Sleep Time (TST): 127.0 min. 313.5 min. NREM Time: 127.0 min. 246.0 min. REM Time: 0.0 min. 67.5 min. Sleep Period Time (SPT): 127.0 min. 324.0 min. Sleep Efficiency (SE): 95 % 96 % Sleep Latency: 7.0 min. 0.5 min. Arousal Index: 12.3 6.7 PAP Treatment Levels: 8/4, 10/6, 11/6, 12/6, 13/6, 14/6, 15/7, 16/7, 17/8 * Optimal Pressure(s) SLEEP STAGING DATA DIAGNOSTIC TREATMENT Duration (min) TST % Duration (min) TST % Stage Wake: 7.0 min. -- 13.5 min. -- WASO: 2.0 min. -- 10.5 min. -- NREM: 127.0 min. 100 % 246.0 min. 78 % Stage N1: 5.0 min. 4 % 6.0 min. 2 % Stage N2: 76.0 min. 60 % 194.5 min. 62 % Stage N3: 46.0 min. 36 % 45.5 min. 15 % REM: 0.0 min. 0 % 67.5 min. 22 % POSITIONAL DATA Event Count Index Event Count Index Supine: N/A N/A N/A N/A Supine NREM: N/A N/A N/A N/A Supine REM: N/A N/A N/A N/A Non-Supine: 102 48.2 91 17.4 Non-Supine NREM: 102 48.2 90 22.0 Non-Supine REM: N/A N/A 1 0.9 AROUSAL SUMMARY DATA: Event Count Index Event Count Index Apnea Arousals: 2 1.9 1 5.4 Hypopnea Arousals: 3 1.4 0 0.0 Snore Arousals: 4 1.9 5 1.0 PLM Arousals: 9 4.3 13 2.5 Non-Specific Arousals: 4 1.9 3 0.6 Total Arousals: 26 12.3 35 6.7 MYOCLONUS (PLM) Event Count Index Event Count Index PLM: 79 37.3 139 26.6 PLM AROUSAL: 9 4.3 13 2.5 PLM W/O AROUSAL 79 37.3 126 24.1 PLM W/RESP EVENT 14 0.0 2 0.0 MYOCLONUS (PLM) Event Count Index Event Count Index LM: 4 23.1 107 20.5 LM AROUSAL: 4 1.9 13 2.5 LM W/O AROUSAL LM W/RESP EVENT LM NON SPECIFIC 95 44.9 203 38.9 HEART RATE DATA DIAGNOSTIC TREATMENT Sleep (bpm): 65 59 REM (bpm): N/A 92 NREM (bpm): 86 89 Tachycardia Count: 0 0 Tachycardia Duration: 0.00 0 Bradycardia Count: 0 0 Bradycardia Duration: 0.00 0 DIAGNOSTIC PORTION TREATMENT PORTION RESPIRATORY DATA Event Count Index Event Count Index AHI: -- 48.2 -- 17.4 RDI: -- 48.2 -- 17 Obstructive Apnea: 3 1.4 5 1.0 Central Apnea: 0 0.0 23 4.4 Mixed Apnea: 1 0.5 0 0.0 Hypopnea: 98 46.3 63 12.1 RERA: 0 0.0 0 0.0 Total Apneas: 4 1.9 28 5.4 RESPIRATORY DATA REM NREM SLEEP REM NREM SLEEP Supine Position: Obstructive Apneas: N/A N/A N/A N/A N/A N/A Central Apneas: N/A N/A N/A N/A N/A N/A Mixed Apneas: N/A N/A N/A N/A N/A N/A Hypopneas: N/A N/A N/A N/A N/A N/A RERA N/A N/A N/A N/A N/A N/A Total Supine Events: N/A N/A N/A N/A N/A N/A Supine AHI: N/A N/A N/A N/A N/A N/A Supine RDI: N/A N/A N/A N/A N/A N/A REM NREM SLEEP REM NREM SLEEP Non-Supine Position: Obstructive Apneas: N/A 3 3 0 5 5 Central Apneas: N/A 0 0 0 23 23 Mixed Apneas: N/A 1 1 0 0 0 Hypopneas: N/A 98 98 1 62 63 RERA N/A 0 0 0 0 0 Total Supine Events: N/A 102 102 1 90 91 Supine AHI: N/A 48.2 48.2 0.9 22.0 17.4 Supine RDI: N/A 48.2 48.2 0.9 22.0 17.4 OXYGEN DESTAURATION DATA: Event Count Index Event Count Index REM Desaturations: N/A N/A 2 1.8 NREM Desaturations: 104 49.1 119 29.0 SNORE DATA DIAGNOSTIC TREATMENT Snore Time: 12.6 11:48:55 PM Snore TST%: 6 3 Snore Arousal Count: 4 5 Snore Arousal Index: 1.9 1.0 Desaturation Event Summary: Minimum %SpO2 Event Count Mean/Min/Max Duration(sec.) Desaturation Index % Time In Bed > 90 147 24.4 / 7.3 / 60.0 74.7 25.7 86 - 90 152 18.8 / 7.0 / 60.0 34.7 57.2 81 - 85 10 13.5 / 7.3 / 20.3 7.7 16.9 76 - 80 0 N/A 0.0 0.1 71 - 75 0 N/A 0.0 0.0 66 - 70 0 N/A 0.0 0.0 61 - 65 0 N/A 0.0 0.0 56 - 60 0 N/A 0.0 0.0 51 - 55 0 N/A 0.0 0.0 < 50 0 N/A 0.0 0.0 OXYGEN SATURATION DATA DIAGNOSTIC TREATMENT SpO2 Mean Sleep: 86 % 90 % SpO2 Mean REM: N/A % 92 % SpO2 Mean NREM: 86 % 89 % SpO2 Minimum Sleep: 79 % 81 % SpO2 Minimum REM: N/A % 88 % SpO2 Minimum NREM: 79 % 81 % Time Below 90% (TST): 116.9 154.2 Time Below 88% (TST): 104.7 45.4 Total REM NREM Awake <50% 0.0 min. 0.0 min. 0.0 min. 0.0 min. 51 - 60% 0.0 min. 0.0 min. 0.0 min. 0.0 min. 61 - 70% 0.0 min. 0.0 min. 0.0 min. 0.0 min. 71 - 80% 0.6 min. 0.0 min. 0.6 min. 0.0 min. 81 - 90% 340.1 min. 10.8 min. 317.9 min. 11.4 min. 91 - 100% 118.0 min. 56.7 min. 54.1 min. 7.2 min. Average 89 92 88 90 Minimum SpO2 79 88 79 83 Desaturation Event Index 30.5 1.8 35.9 26.3 # Desat. Events below 89% 216 N/A 208 8 Time(%) with Saturation below 89% 47.8 0.0 46.0 1.8 Time(min.) with Saturation below 89% 219.4 0.2 211.1 8.1 Recording Personal Care Worker Comments: Mr. Gutierrez slept in the left position. No cardiac arrhythmia. PLMs noted. No bruxism noted. Snoring was noted and scored as a 3 on a scale of 0 through 5. (0=no snoring, 5=snoring loud enough to be heard through a closed door or down the ortega way) At 11:48 pm, Mr. Gutierrez met specific Split-Night criteria during the diagnostic portion of this study. PAP initiated at an IPAP of +8 CMH2O and an EPAP of +4 CMH2O up-titrated to an optimal level of: IPAP +17 CMH2O, EPAP + 8 CMH20 room air. A medium ResMed Quattro air, was used during titration. Mr. Gutierrez did not wake to use the restroom during the night. Mr. Gutierrez stated, I think I slept well. The final report will be interpreted and signed by a sleep physician. The completed physician report will then be placed in the patient medical record. Therapy Event: Therapy (cm H20) 0 8/4 10/6 11/6 12/6 13/6 14/6 15/7 16/7 17/8 Total Time at Pressure (min.) 134.0 8.8 11.4 20.4 11.7 19.4 14.2 49.1 84.5 107.6 TST at Pressure (min.) 127.0 8.3 11.4 19.9 11.7 18.9 14.2 48.6 76.0 104.6 # Periods 1 1 1 1 1 1 1 1 1 1 Sleep Onset (min.) 7.0 0.5 0.0 0.0 0.0 0.0 0.0 0.0 0.0 0.0 REM Onset (min.) N/A N/A N/A N/A N/A N/A N/A N/A N/A 36.6 Sleep Efficiency % 94 94 100 97 100 97 100 99 89 97 Wakefulness (%) 5.2 5.7 0.0 2.5 0.0 2.6 0.0 1.0 10.1 2.8 Wakefulness (min.) 7.0 0.5 0.0 0.5 0.0 0.5 0.0 0.5 8.5 3.0 NREM 1 (%) 3.7 17.1 0.0 0.0 0.0 0.0 3.5 3.1 2.4 0.5 NREM 1 (min.) 5.0 1.5 0.0 0.0 0.0 0.0 0.5 1.5 2.0 0.5 NREM 2 (%) 56.7 77.2 100.0 18.9 12.8 41.8 85.9 93.9 82.2 32.6 NREM 2 (min.) 76.0 6.8 11.4 3.8 1.5 8.1 12.2 46.1 69.5 35.1 NREM 3 (%) 34.3 0.0 0.0 78.7 87.2 55.6 10.6 2.0 5.3 1.4 NREM 3 (min.) 46.0 0.0 0.0 16.0 10.2 10.8 1.5 1.0 4.5 1.5 REM (%) 0.0 0.0 0.0 0.0 0.0 0.0 0.0 0.0 0.0 62.7 REM (min.) 0.0 0.0 0.0 0.0 0.0 0.0 0.0 0.0 0.0 67.5 # Arousals 26 2 0 1 1 3 3 9 6 10 Arousal Index 12.3 14.5 0.0 3.0 5.1 9.5 12.7 11.1 4.7 5.7 # Snore 683 3 3 7 3 7 6 18 99 193 Snore Index 322.7 21.8 15.8 21.2 15.4 22.2 25.4 22.2 78.2 110.7 AHI 48.2 58.1 57.9 21.2 56.3 60.4 46.5 13.6 7.9 1.7 AHI Supine N/A N/A N/A N/A N/A N/A N/A N/A N/A N/A AHI Non-Supine 48.2 58.1 57.9 21.2 56.3 60.4 46.5 13.6 7.9 1.7 NREM AHI 48.2 58.1 57.9 21.2 56.3 60.4 46.5 13.6 7.9 3.2 REM AHI N/A N/A N/A N/A N/A N/A N/A N/A N/A 0.9 RDI 48.2 58.1 57.9 21.2 56.3 60.4 46.5 13.6 7.9 1.7 # Obstructive 3 1 0 0 1 2 0 1 0 0 # Central Ap 0 4 4 1 2 7 4 1 0 0 # Mixed 1 0 0 0 0 0 0 0 0 0 # Hypopneas 98 3 7 6 8 10 7 9 10 3 RERAS 0 0 0 0 0 0 0 0 0 0 Total Respiratory Events 102 8 11 7 11 19 11 11 10 3 Time Below SpO2 89.00% (min.) 111.7 3.1 7.8 11.6 5.5 9.1 6.4 29.8 23.4 2.8 Mean NREM SpO2 (%) 86 90 88 88 89 89 89 88 89 90 Mean REM SpO2 (%) N/A N/A N/A N/A N/A N/A N/A N/A N/A 92 Mean Sleep SpO2 (%) 86 90 88 88 89 89 89 88 89 91 Min NREM SpO2 (%) 79 81 81 85 86 83 84 82 82 88 Min REM SpO2 (%) N/A N/A N/A N/A N/A N/A N/A N/A N/A 88 Position Supine (min.) 0.0 0.0 0.0 0.0 0.0 0.0 0.0 0.0 0.0 0.0 Position Non-supine (min.) 127.0 8.3 11.4 19.9 11.7 18.9 14.2 48.6 76.0 104.6 LM Index Sleep 60.5 29.1 10.5 12.1 46.1 73.1 76.1 88.8 46.6 31.5 LM Index NREM 60.5 29.1 10.5 12.1 46.1 73.1 76.1 88.8 46.6 55.0 LM Index REM N/A N/A N/A N/A N/A N/A N/A N/A N/A 18.7 Mean Heart Rate (bpm) 65 63 63 63 63 62 62 61 58 57 Min Heart Rate (bpm) 60 59 60 58 59 57 59 56 55 50
--- NOTE | 2017-10-20 10:32 | Sleep Study ---
Sleep Study Report Date of Service: 10/10/2017 Sleep Study Report CLINICAL DATA: The patient is a 57-year-old male with a BMI of 45.76. He has a history of snoring and observed apneas. In the fall of 2016 he had a coronary artery bypass grafting done. During that hospital stay he was told that he likely had sleep apnea. He was treated with BiPAP during that hospital stay and tolerated it. He previously had a sleep study done in 2006 that reported an apnea- hypopnea index of 52.4. It was reportedly central sleep apnea. He was given a trial of CPAP but did not tolerated. A study was done 12/31/2011 and showed an apnea-hypopnea index of 21.2. This was also treated with nasal CPAP and he did not tolerated. This was an in-lab split night study. SLEEP ARCHITECTURE: During this study there was a diagnostic and therapeutic portions to the study. BiPAP was utilized during the therapeutic portion in light of the fact he had failed CPAP twice in the past. During the diagnostic portion of the study the sleep period time was 127 minutes. The total sleep time was 127 minutes. The sleep efficiency was normal at 95 percent. The sleep latency was 7 minutes. Sleep consisted of stage N1 4 percent, stage N2 60 percent, stage N3 36 percent , stage REM 0 percent. During the therapeutic portion of the study the patient's events were treated with BiPAP. The sleep period time was 324 minutes. The total sleep time was 313.5 minutes. The sleep efficiency was normal at 96 percent. The sleep latency was 0.5 minutes. Sleep consisted of stage N1 2 percent, stage N2 62 percent, stage N3 15 percent, stage REM 22 percent. AROUSAL DATA: During the diagnostic portion of the study the patient had 26 arousals including 2 apnea arousals, 3 hypopnea arousals, 4 snoring arousals, 9 PLM arousals, and 4 nonspecific arousals. The arousal index was 12.3. During the therapeutic portion of the study the patient had a total of 35 arousals including 1 apnea arousal, 5 snoring arousals, 13 PLM arousals, and 3 nonspecific arousals. The arousal index was 6.7. PLM DATA: During the diagnostic portion of the study the patient had a total of 79 periodic limb movements for a PLM index of 37.3. There were 9 PLMS associated with arousals for a PLM arousal index of 4.3. During the therapeutic portion of the study the patient had a total of 139 periodic limb movement for a PLM index of 26.6. There were 13 leg movements associated with arousals for a PLM arousal index of 2.5. EKG: The cardiac rates 65-92 beats per minute. No cardiac arrhythmias were noted. RESPIRATORY DATA: During the diagnostic portion of the study the patient had a total of 102 respiratory events including 3 obstructive apneas, 1 mixed apnea, and 98 hypopneas. Hypopneas were scored according to the 4 percent desaturation rule. The apnea-hypopnea index was severely elevated at 48.2 events per hour. During the therapeutic portion of the study the patient's respiratory events were treated with BiPAP. Patient had a total of 91 respiratory events including 5 obstructive apneas, 23 central apneas, and 63 hypopneas. The apnea- hypopnea index was 17.4 events per hour. At the final pressure of 17/8, the apnea-hypopnea index was only 1.7 events per hour. He did spend 107 minutes at the final pressure. OXIMETRY DATA: During the diagnostic portion of the study the mean saturation was 86 percent. The minimum saturation was 79 percent. There was a total of 104.7 minutes with saturations less than 88 percent. During the therapeutic portion of the study the mean saturation was 96 percent, the minimum saturation was 81 percent. There was a total of 45.4 minutes with saturations less than 88 percent. There was no significant desaturations at the final pressure. AIRDOX FITTER COMMENTS: The patient slept in the left side position. No cardiac arrhythmia noted. PLMS noted. No bruxism noted. Snoring was noted and scored as a 3 on a scale of 0 through 5. At 11:48 p.m. the patient met specific split night criteria during the diagnostic portion of this study. BiPAP was initiated with the inspiratory pressure of 8 and an expiratory pressure of 4. This was titrated up to an optimum level of 17/8. A medium [email or web address] [email or web address] Quattro air was used during titration. The patient stated that he thought he slept well. IMPRESSIONS: 1. Severe obstructive sleep apnea-resolved with BiPAP 17/8 COMMENTS: The diagnostic study showed severe sleep apnea. His sleep efficiency was normal throughout the night. His oxygen saturation was significantly lower during the diagnostic than during the therapeutic portion. His sleep was well consolidated. The events were well resolved at the final pressure. RECOMMENDATIONS: 1. It is advised that the patient be started on BiPAP 18/04 2. It is suggested that he be ordered a M-Factor Quattro air size medium. 3. Weight loss is advised in light of the elevation of body mass index at 45.76. 4. It is advised that the patient avoid sleeping in the supine position. During this study he slept entirely on his left side. 5. The patient should be seen back between day 31 day 90 after being initiated with BiPAP. Copies To 1: Nomi Em M.D. (MEDICAL); Heron Talley DO
== END | disposition home or self-care (01) ==
LOC: C.NEUR 21:00
PROVIDERS: ATTEND Internal Medicine Pulmonary Disease
DX: G47.33 Obstructive sleep apnea (adult) (pediatric) (principal)

== ENCOUNTER 2019-11-11 13:44 | Observation (INO) ==
[2019-11-11] MEDS ORDERED: NITROGLYCERIN SL 0.4 MG/TAB TAB SL PRN ×2 (14:00→17:14)
[2019-11-11 14:15] LABS: Basophils # (auto) 0.06 K/uL (0-0.2); Basophils % (auto) 0.7 %; Eosinophils # (auto) 0.24 K/uL (0-0.5); Eosinophils % (auto) 2.9 %; Hematocrit (blood only) 43.3 % (42-52); Hemoglobin 14.3 g/dL (14.0-18.0); Immature Granulocytes # (auto) 0.02 K/uL (0.00-0.02); Immature Granulocytes % (auto) 0.2 %; Lymphocytes # (auto) 2.72 K/uL (1.2-3.4); Lymphocytes % (auto) 32.4 %; Mean Corpuscular Hemoglobin 28.5 pg (25-34); Mean Corpuscular Volume 86.3 fL (80-100); Mean Platelet Volume 9.4 fL (7.4-10.4); Monocytes # (auto) 0.83 K/uL (0.11-0.59); Monocytes % (auto) 9.9 %; Neutrophils # (auto) 4.53 K/uL (1.4-6.5); Neutrophils % (auto) 53.9 %; Platelet Count 371 K/uL (130-400); RDW Coefficient of Variation 13.4 % (11.5-14.5); RDW Standard Deviation 42.3 fL (36.4-46.3); Red Blood Count 5.02 M/uL (4.7-6.1)
--- NOTE | 2019-11-11 14:20 | XRay Report ---
XR chest 1V portable HISTORY: 59 years-old Male Chest Pain acute atypical chest pain COMPARISON: Chest radiograph and CTA chest 05/29/2017 TECHNIQUE: Portable AP view of the chest FINDINGS: Cardiac silhouette is mildly enlarged. Prior median sternotomy. Additional orthopedic hardware projec ting over the central chest is new from comparison. There is no pneumothorax, pleural effusion, overt pulmonary edema or airspace consolidation typical for pneumonia. Interstitial opacities of the lung bases are suggestive of fibrosis/atelectasis. Degenerative changes of the shoulders and spine. IMPRESSION: No acute process. ACT 112: Negative or not required by law. The above report was generated using voice recognition software. It may contain grammatical, syntax o r spelling errors. Electronically signed by: Mason Perez M.D. 11/11/2019 2:19 PM
[2019-11-11 14:27] LABS: INR 1.1 (0.9-1.1); Partial Thromboplastin Time 29.2 Seconds (21.0-31.0); Prothrombin Time 11.1 Seconds (9.0-12.0)
[2019-11-11 14:31] LABS: Alanine Aminotransferase 40 U/L (12-78); Albumin Level 3.8 gm/dl (3.4-5.0); Aspartate Aminotransferase 20 U/L (15-37); Blood Urea Nitrogen 15 mg/dl (7-18); Calcium 9.2 mg/dl (8.5-10.1); Carbon Dioxide 29 mmol/L (21-32); Chloride 102 mmol/L (98-107); Creatinine Clr Calc Pharmacy 115.6 ml/min; Est GFR (African American) 93.3; Est GFR (Non-African American) 80.5; Glucose 92 mg/dl (70-99); Lipase 121 U/L (73-393); Potassium 3.8 mmol/L (3.5-5.1); Sodium 136 mmol/L (136-145)
[2019-11-11 14:36] LABS: Albumin Globulin Ratio 1.2 (0.9-2); Alkaline Phosphatase 122 U/L (45-117); Bilirubin,Total 0.4 mg/dl (0.2-1); Globulin 3.2 gm/dl (2.5-4.0); NT Pro B Type Natriuretic Pept 33 pg/ml (0-900); Troponin I < 0.015 ng/ml (0-0.045)
--- NOTE | 2019-11-11 16:14 | History & Physical Report ---
Date of Service November 11, 2019 Assessment & Plan (1) Chest pain: Pt is 59 y/o M with PMH CAD s/p CABG x3 in 2017, chronic diastolic CHF, HTN, HLD, GERD, prediabetes, VERÓNICA, obesity, chronic low back pain presented to ER with complaint of chest pain. Patient with chronic angina, however noted decreased exercise intolerance past week. Today with CP relieved by 2 sprays nitro by EMS and was given ASA In ER P: 60, R: 16, BP: 155/92, 92% on RA. Negative initial troponin. EKG: sinus, 1st degree AV block, RBBB CXR: no acute changes H/O Angina. R/O ACS. Risk factors:CAD, HTN, hyperlipidemia, obesity -In ER has remained CP free -Monitor Vitals -Repeat EKG in am -Will trend troponin -Echo -Continue statin, update lipid panel in am -Continue aspirin, metoprolol tartrate, isosorbide -Nitro prn CP and repeat EKG for CP -Cardiology consult, ER contacted Dr Atkins recommended holding on IV Heparin currently and recommend starting if pt has CP at rest (2) Chronic diastolic CHF (congestive heart failure): Pt reports weight gain over past 2 weeks and taking additional lasix for past 10 days Currently pt does not appear volume overloaded -Continue lasix 80mg BID, potassium supplement -Monitor I&O's (3) Hypertension: -Continue metoprolol (4) HLD (hyperlipidemia): -Continue atorvastatin (5) Pre-diabetes: A1c: 6.0 in 05/07/2019 Random glucose: 122 -A1c in AM (6) Depression: H/O depression and anxiety -Continue home meds (7) Morbid obesity with BMI of 45.0-49.9, adult: BMI: 46 -Lifestyle modifications recommended DVT Prophylaxis -Heparin SQ Admit observation tele DNR/DNI as per discussion with pt Follows with Dr Helton and [facility] for routine care Pt was seen and care coordinated with Dr Henderson. See addendum History of Present Illness Chief Complaint: CP Primary Care Provider: Mikhail Helton MD Pt is 59 y/o M with PMH CAD s/p CABG x3 in 2017, chronic diastolic CHF, HTN, HLD, GERD, prediabetes, VERÓNICA, obesity, chronic low back pain presented to ER with complaint of chest pain. Patient with chronic left-sided chest pain and shortness of breath, with associated dizziness and nausea with exertion relieved with rest in approximately 15 minutes. Patient reports he has been going to the gym 3 days a week lifting weights and doing a stepper for approximately 20 minutes. He states that 2-3 times a week he requires nitroglycerin with relief of chest pain. Patient states the past week he has noticed decreased exercise intolerance and fatigue. He reports was carrying wood several days ago and felt like he had increased shortness of breath and felt like his heart was pounding, and he had to stop and rest to resolve symptoms. Patient takes 80 mg Lasix twice daily. He reports pedal edema at night. Denies any increased edema. Reports chronic orthopnea, denies any worsening. He states he has gained approximately 10 to 15 pounds over the last 2 weeks, so he has been taking an additional Lasix daily. Today patient began with left-sided chest pain and shortness of breath. He was given aspirin and 2 sprays of nitroglycerin in route with complete resolution of chest pain. Denies fever/chills, diaphoresis, V/D/C, WELLS, syncope, vision changes, neck pain, cough, sore throat, choking, otalgia, rhinorrhea, abdominal pain, paresthesias, weakness, extremity weakness, rashes, urinary symptoms. Stress echo 09/2018: Negative inducible ischemia, EF: 55-60%, grade 2 diastolic dysfunction, mild enlargement ascending aorta. Cardiac cath 12/2018 at [facility] [place]: 40% stenosis left main, 90% stenosis mid LAD, 95% ostial circumflex stenosis, 50% stenosis right coronary artery, all 3 bypass grafts patent Patient treated with medical management Allergies Allergy/AdvReac Type Severity Reaction Status Date / Time adhesive Allergy Mild Rash Verified 08/18/19 08:37 Poison Jo-Ann Extract/Poison Allergy Mild Rash Uncoded 08/18/19 08:37 [place] Extra Home Medications Home Medications Medication Instructions Recorded Confirmed Type atorvastatin 80 mg PO PM 10/06/18 11/11/19 History bupropion HCl 300 mg PO QAM 10/06/18 11/11/19 History colestipol 1 g PO BID PRN 10/06/18 11/11/19 History cyanocobalamin (vitamin B-12) 1,000 mcg SUBLINGUAL QAM 10/06/18 11/11/19 History duloxetine [Cymbalta] 60 mg PO QAM 10/06/18 11/11/19 History furosemide 80 mg PO BID 10/06/18 11/11/19 History metoprolol tartrate 50 mg PO BID 10/06/18 11/11/19 History nitroglycerin 1 tab SUBLINGUAL UD PRN 10/06/18 11/11/19 History potassium chloride 40 meq PO QAM 10/06/18 11/11/19 History trazodone 300 mg PO QPM 10/06/18 11/11/19 History aspirin 162 mg PO DAILY 11/11/19 11/11/19 History clonazepam 0.5 mg PO HS 11/11/19 11/11/19 History hydroxyzine pamoate 25 mg PO BID 11/11/19 11/11/19 History isosorbide mononitrate 60 mg PO DAILY 11/11/19 11/11/19 History sertraline 50 mg PO DAILY 11/11/19 11/11/19 History Past Med/Surg History Medical History Anxiety Atrial fibrillation hx of after triple CABG--no longer have Chronic back pain Chronic diastolic CHF (congestive heart failure) Complex sleep apnea syndrome Depression GERD (gastroesophageal reflux disease) Hearing deficit History of gastric ulcer Hyperlipidemia Hypertension Myocardial Infarction before 2016 "silent heart attack" On home oxygen therapy on 2L bipap at HS VERÓNICA (obstructive sleep apnea) Sleep apnea BIPAP--2L at HS Surgical History History of cardiac cath 06/2017 @ [facility] [place]--no stent History of colonoscopy History of esophagogastroduodenoscopy (EGD) History of hernia repair x3 History of sternectomy 04/2018 @ [facility] [place] "repair of sternum" History of surgery x6 lipoma removal off back History of tonsillectomy History of tooth extraction History of wisdom tooth extraction Hx of inguinal hernia repair S/P CABG x 3 04/2017 @ [facility] [place] Family History Mother Coronary heart disease Father Coronary heart disease Other No family history of adverse response to anesthesia Social History Preferred Language: Jordanian Communication Ability: Effective Demographer Required: No Beliefs That Will Affect Care: None Current Living Situation: Spouse and Family Current Living Situation Comment: Lives with and son Feels Safe at Home: Yes Smoking Status: Former smoker Second Hand Exposure: Yes (In [place] around smoke) ; Hx Alcohol Use: No (none since 04/2018) Hx Substance Use: No Review of Systems Review of Systems: All systems reviewed & are unremarkable except as noted in HPI & below Physical Exam Physical Exam: General: no distress, obese Head: normocephalic, atraumatic Eyes: PERRL, EOM's intact, conjunctiva non-injected, anicteric ENT: normal inspection external ears, nose, mucous membranes moist Neck: supple, trachea midline Lungs: clear, no respiratory distress, no wheezing/rhonchi/rales CV: RRR, no murmur, no pretibial edema Chest: +vertical mid chest scar Abd: normal BS, soft, protuberant, non-tender Ext: no cyanosis, no calf tenderness Neuro: A&O x 3, no focal deficits noted, normal affect Skin: warm, dry Results & Data Vital Signs (Past 12 Hours) Vital Signs Temp Pulse Resp BP Pulse Ox 11/11/19 14:00 92 11/11/19 13:45 37.1 C 60 16 155/92 H 92 Laboratory Results Short CBC 11/11/19 Range/Units 14:05 WBC 8.40 (4.8-10.8) K/uL Hgb 14.3 (14.0-18.0) g/dL Hct 43.3 (42-52) % Plt Count 371 (130-400) K/uL BMP 11/11/19 14:05 Sodium 136 Potassium 3.8 Chloride 102 Carbon Dioxide 29 BUN 15 Creatinine 1.01 Glucose 92 Calcium 9.2 Cardiac Enzymes 11/11/19 Range/Units 14:05 Troponin I < 0.015 (0-0.045) ng/ml Liver Function 11/11/19 Range/Units 14:05 Total Bilirubin 0.4 (0.2-1) mg/dl AST 20 (15-37) U/L ALT 40 (12-78) U/L Alkaline Phosphatase 122 H (45-117) U/L Albumin 3.8 (3.4-5.0) gm/dl Diagnostic Findings CXR: IMPRESSION: No acute process. ECG Rate (beats per minute): 60 Rhythm: sinus rhythm Findings: + 1st degree AV block and + RBBB Additional Comments: Outpatient EKG 01/12/2019: sinus rhythm 1st degree AV block, incomplete RBBB Code Status & VTE Plan VTE Prophylaxis Plan VTE Prophylaxis will be ordered: Yes Supervising Physician Co-Signing Physician Notes Pt was seen and examined. Agreed with Tanya BARILLAS exam, assessment and plan. 59 y/o M with PMH CAD s/p CABG x3 in 2017, chronic diastolic CHF, HTN, HLD, GERD, p rediabetes, VERÓNICA, obesity, chronic low back pain presented to ER with chest pain. Pt said that he has been chest pain associated with SOB. He said that he has been going to the gym 3 days a week lifting weights and stepper. He said that he has been feeling tired and fatigue easily in the last few weeks. CXR on admission showed no acute process. Troponin on admission negative. EKG showed no acute ischemic changes. Will admit to telemetry. Will trend troponin and get a resting echo. Cardiology consult. Will make NPO after midnight in case cardiology wants to do any procedure in the morning. MD Santiago
--- NOTE | 2019-11-11 16:33 | Electrocardiogram Report ---
Test Reason : Blood Pressure : / mmHG Vent. Rate : 060 BPM Atrial Rate : 060 BPM P-R Int : 236 ms QRS Dur : 146 ms QT Int : 484 ms P-R-T Axes : -22 -42 015 degrees QTc Int : 484 ms Sinus rhythm with 1st degree A-V block Left axis deviation Right bundle branch block Old Inferior infarct Abnormal ECG When compared with ECG of 29-MAY-2017 10:14, ID interval has increased Right bundle branch block is now Present Confirmed by Javid Raman ([id number]) on 11/11/2019 4:32:43 PM Referred By: REFERRED SELF Confirmed By:Javid Raman
--- NOTE | 2019-11-11 17:10 | Emergency Department Note ---
Entered by Mike Dowling acting as a scribe for History of Present Illness General Chief complaint: Cardiac Assessment Stated complaint: sob/heart palpitation Time Seen by Provider: 11/11/19 13:45 Source: patient Limitations: no limitations History of Present Illness Onset (ago): week(s) 2 Location: chest Radiation: non-radiation Severity: similar to prior episodes Pain Consistency: + intermittent Maximum Pain Intensity: 0 Exacerbated By: + movement Associated symptoms: + denies other symptoms (leg swelling), + diaphoresis, + weakness and + other (fatigue, dizziness, feet swelling); no cough and no fever/chills (fever) Treatments prior to arrival: other (Nitro and aspirin) The patient is a 59 year-old white male w/ PMHx anxiety, atrial fibrillation, GERD, depression, ID, HTN, VERÓNICA, hx of EGD, hx of cardiac cath, hx of hernia repair, hx of sternectomy, s/p CABG x 3, who presents to the ED w/ CC of intermittent and aching chest pain beginning two weeks ago. The patient states he has gained weight in the past 2 weeks. He states he has been going to the gym more. He notes 5 days ago he had an episode where he got weak. He notes 4 days ago he was exerting himself when he got really weak, dizzy, and his heart was palpitating. He states two days ago he went to the gym and was more fatigued. He states exertion makes his pain worse. he notes his chest pain feels similar to when he had a bypass. He notes he has nausea and intermittently gets sweats. He states his pain does not radiate. He notes he received Nitro and aspirin on the way to the ED, and states they did not help. The patient denies coughing, fever, changes in diet, leg swelling, history of blood clots, recent travel, and antibiotic use. He notes his feet swell up at night. He states he has not been urinating as much. He states he follows with Dr. Torres. He notes he was instructed to take more Lasix when he had symptoms, and states he has been taking more Lasix for the past 9 days. He denies using tobacco or alcohol. Home Medications Home Medications Medication Instructions Recorded Confirmed Type atorvastatin 80 mg PO PM 10/06/18 11/11/19 History bupropion HCl 300 mg PO QAM 10/06/18 11/11/19 History colestipol 1 g PO BID PRN 10/06/18 11/11/19 History cyanocobalamin (vitamin B-12) 1,000 mcg SUBLINGUAL QAM 10/06/18 11/11/19 History duloxetine [Cymbalta] 60 mg PO QAM 10/06/18 11/11/19 History furosemide 80 mg PO BID 10/06/18 11/11/19 History metoprolol tartrate 50 mg PO BID 10/06/18 11/11/19 History nitroglycerin 1 tab SUBLINGUAL UD PRN 10/06/18 11/11/19 History potassium chloride 40 meq PO QAM 10/06/18 11/11/19 History trazodone 300 mg PO QPM 10/06/18 11/11/19 History aspirin 162 mg PO DAILY 11/11/19 11/11/19 History clonazepam 0.5 mg PO HS 11/11/19 11/11/19 History hydroxyzine pamoate 25 mg PO BID 11/11/19 11/11/19 History isosorbide mononitrate 60 mg PO DAILY 11/11/19 11/11/19 History sertraline 50 mg PO DAILY 11/11/19 11/11/19 History Allergies Allergy/AdvReac Type Severity Reaction Status Date / Time adhesive Allergy Mild Rash Verified 08/18/19 08:37 Poison Jo-Ann Extract/Poison Allergy Mild Rash Uncoded 08/18/19 08:37 [place] Extra Past Med/Surg History Medical History Anxiety Atrial fibrillation hx of after triple CABG--no longer have Chronic back pain Chronic diastolic CHF (congestive heart failure) Complex sleep apnea syndrome Depression GERD (gastroesophageal reflux disease) Hearing deficit History of gastric ulcer Hyperlipidemia Hypertension Myocardial Infarction before 2017 "silent heart attack" On home oxygen therapy on 2L bipap at HS VERÓNICA (obstructive sleep apnea) Sleep apnea BIPAP--2L at HS Surgical History History of cardiac cath 06/2017 @ [facility]--no stent History of colonoscopy History of esophagogastroduodenoscopy (EGD) History of hernia repair x3 History of sternectomy 04/2018 [place] [facility] [place]" History of surgery x6 lipoma removal off back History of tonsillectomy History of tooth extraction History of wisdom tooth extraction Hx of inguinal hernia repair S/P CABG x 3 04/2017 @ [facility] [place] Family History Mother Coronary heart disease Father Coronary heart disease Other No family history of adverse response to anesthesia Social History Preferred Language: Singaporean Communication Ability: Effective Telecommunicator Required: No Beliefs That Will Affect Care: None Current Living Situation: Spouse and Family Current Living Situation Comment: Lives with and son Other Information That Helps Us Care for You: No Feels Safe at Home: Yes Safety Concerns: Feels Safe At This Time Smoking Status: Former smoker Second Hand Exposure: Yes (In [place] around smoke) ; Hx Alcohol Use: No (none since 04/2018) Hx Substance Use: No Review of Systems See HPI for pertinent positives & negatives. and A total of 10 systems reviewed and were otherwise negative Physical Exam Vital Signs Vital Signs - 24 hr 11/11/19 13:45 11/11/19 14:00 Temperature 37.1 C Temperature Source Oral Pulse Rate 60 Pulse Rhythm Regular Pulse Strength Normal Respiratory Rate 16 Respiratory Effort / Characteristics Non-Labored Spontaneous Respiratory Depth Normal Respiratory Pattern Regular Blood Pressure 155/92 H Blood Pressure Mean 113 Blood Pressure Position Lying Pulse Oximetry 92 92 Oxygen Delivery Method Room Air Room Air Sepsis Recent Fever Within 48 Hours No Sepsis New/Unexplained Change in Mental Status No Sepsis Action Taken by Nursing No Action Required GENERAL: Well appearing, well nourished, NAD, non-toxic. Obese. EYE EXAM: Normal conjunctiva. PERRL, no anisocoria and EOM's grossly intact w/o pain. OROPHARYNX: Moist mucus membranes. Grossly normal dentition. NECK: Supple, no nuchal rigidity, no adenopathy, non-tender. no signs of meningismus. LUNGS: Clear to auscultation. Normal chest wall mechanics. HEART: NSR, no MRG. CHEST: Well healed sternotomy scar. Left-sided reproducible chest wall pain. ABDOMEN: Abdomen soft, non-tender, normo-active bowel sounds, no masses, no rebound or guarding. BACK: No CVA TTP. SKIN: No rashes and no bruising. UPPER EXTREMITIES: Upper extremities are grossly normal. LOWER EXTREMITIES: No pitting edema. No calf pain. NEURO EXAM: A&O x3, cranial nerves II-XII grossly intact, normal speech, moves all 4 extremities on command w/o issue. Course Course 1352: The patient was evaluated in room B7, and a complete history and physical examination were performed. 1515: I discussed the patient's case with Tanya Hamm PA-C. Dr. [facility] management. 1524: I spoke with Dr. Atkins - Cardiology, about the patient's case. He states if the patient does not have active chest pain, he does not recommend giving the patient heparin. He states he would trend enzymes. 1535: I updated the patient on the plan. He agrees. [facility] is at bedside. Medical Decision Making Differential Diagnosis Differential diagnoses includes but is not limited to pneumonia, bronchitis, COPD/Asthma exacerbation, pneumothorax, pulmonary embolism, congestive heart failure, acute coronary syndrome Medical Records Attestation: I reviewed the patient's medical records. Home Medications Current Medication List: was personally reviewed by me Laboratory Data Attestation: I reviewed the patient's lab results. Result diagrams: 11/11/19 14:05 11/11/19 14:05 Lab Results 11/11/19 11/11/19 11/11/19 Range/Units 14:05 14:05 14:05 WBC 8.40 (4.8-10.8) K/uL RBC 5.02 (4.7-6.1) M/uL Hgb 14.3 (14.0-18.0) g/dL Hct 43.3 (42-52) % MCV 86.3 (80-100) fL MCH 28.5 (25-34) pg MCHC 33.0 (32-36) g/dL RDW Std Deviation 42.3 (36.4-46.3) fL RDW Coeff of Deanne 13.4 (11.5-14.5) % Plt Count 371 (130-400) K/uL MPV 9.4 (7.4-10.4) fL Immature Gran % (Auto) 0.2 % Neut % (Auto) 53.9 % Lymph % (Auto) 32.4 % Brown % (Auto) 9.9 % Eos % (Auto) 2.9 % Baso % (Auto) 0.7 % Immature Gran # (Auto) 0.02 (0.00-0.02) K/uL Neut # (Auto) 4.53 (1.4-6.5) K/uL Lymph # (Auto) 2.72 (1.2-3.4) K/uL Brown # (Auto) 0.83 H (0.11-0.59) K/uL Eos # (Auto) 0.24 (0-0.5) K/uL Baso # (Auto) 0.06 (0-0.2) K/uL PT 11.1 (9.0-12.0) Seconds INR 1.1 (0.9-1.1) APTT 29.2 (21.0-31.0) Seconds PTT Ratio 1.0 Sodium 136 (136-145) mmol/L Potassium 3.8 (3.5-5.1) mmol/L Chloride 102 (98-107) mmol/L Carbon Dioxide 29 (21-32) mmol/L Anion Gap 6.0 (3-11) BUN 15 (7-18) mg/dl Creatinine 1.01 (0.6-1.4) mg/dl Est Cr Clr Drug Dosing 115.6 ml/min Est GFR ( Amer) 93.3 Est GFR (Non-Af Amer) 80.5 BUN/Creatinine Ratio 15.0 (10-20) Glucose 92 (70-99) mg/dl Calcium 9.2 (8.5-10.1) mg/dl Total Bilirubin 0.4 (0.2-1) mg/dl AST 20 (15-37) U/L ALT 40 (12-78) U/L Alkaline Phosphatase 122 H (45-117) U/L Troponin I < 0.015 (0-0.045) ng/ml NT-Pro-B Natriuret Pep 33 (0-900) pg/ml Total Protein 7.0 (6.4-8.2) gm/dl Albumin 3.8 (3.4-5.0) gm/dl Globulin 3.2 (2.5-4.0) gm/dl Albumin/Globulin Ratio 1.2 (0.9-2) Lipase 121 (73-393) U/L Imaging Data Radiologist's Impression: Radiology results as stated below per my review and the radiologist's interpretation: XR chest 1V portable HISTORY: 59 years-old Male Chest Pain acute atypical chest pain COMPARISON: Chest radiograph and CTA chest 05/29/2017 TECHNIQUE: Portable AP view of the chest FINDINGS: Cardiac silhouette is mildly enlarged. Prior median sternotomy. Additional orthopedic hardware projecting over the central chest is new from comparison. There is no pneumothorax, pleural effusion, overt pulmonary edema or airspace consolidation typical for pneumonia. Interstitial opacities of the lung bases are suggestive of fibrosis/atelectasis. Degenerative changes of the shoulders and spine. IMPRESSION: No acute process. ACT 112: Negative or not required by law. The above report was generated using voice recognition software. It may contain grammatical, syntax or spelling errors. Electronically signed by: Mason Perez M.D. 11/11/2019 2:19 PM ECG Data Attestation: I personally reviewed and interpreted this ECG as follows: Indication: + chest pain Rate (beats per minute): 60 Rhythm: + sinus rhythm ECG Intervals/blocks: + First degree AV block and + Right Bundle branch block ECG [place]: + Left axis deviation ECG ST segments: + T-wave inversions (anteriorly and inferiorly) Comparison ECG Date: from (05/29/17) Change: the following changes noted (RBBB is new. Left axis deviation is new. Anterior TWI is new. ) Blood Pressure Blood Pressure Findings: Elevated blood pressure Blood Pressure Disposition: further management by hospitalist [facility] Narrative The patient is a 59 year-old white male w/ PMHx anxiety, atrial fibrillation, GERD, depression, ID, HTN, VERÓNICA, hx of EGD, hx of cardiac cath, hx of hernia repair, hx of sternectomy, s/p CABG x 3, who presents to the ED w/ CC of intermittent and aching chest pain beginning two weeks ago. The patient states he has gained weight in the past 2 weeks. Continuous Cardiac Monitoring: An order was placed for continuous cardiac monitoring. The monitor shows a rate of 62 with a sinus rhythm Patient was seen and evaluated the bedside. The patient was complaining of increasing exertional chest pain weakness and fatigue. The patient does have a known history of triple bypass. The patient relates that he has had a heart catheterization approxi-6 months ago where he did have some narrowing but that some of the arteries were too small to stent. Does have like the patient has had some stable angina but is worsening as he had worsening exertional dyspnea and fatigue. Patient does have exertional chest pain. The patient was given aspirin nitro in route which relieved his discomfort. No active chest pain. The patient does have reproducible chest pain on exam but this feels different to his exertional symptoms. The patient states that he feels as though he is gaining weight and has been trying to increase his exercise regimen. The patie nt does not have lower extremity swelling but does relate that at the end of the day he typically does have pedal edema. Patient's blood work is fairly unremarkable with a normal white count H&H and platelet count. Kidney function is unremarkable. Troponin is not detectable. EKG does show some acute changes from 2017 with TW anteriorly and a right bundle branch block. This is new compared to the old but the old was recent after his CABG unsure as to whether or not this is remodeling or acute change. Given this and the patient's high risk nature but the patient would benefit from continued monitoring and treatment. Patient is in agreement plan of care. I did speak the on-call hospitalist agreed to further evaluate treat the patient. I did discuss case with the on-call quality process lead who stated if the patient does not have any active chest pain would not start heparin. If he does develop chest pain at rest would consider the heparin. This was conveyed to the hospitalist. Impression & Plan Atypical chest pain, Fatigue, Anemia Discharge Plan Visit Data *Final* Discharge Date/Time: 11/11/19 16:30 Chief Complaint: Cardiac Assessment Stated Complaint: sob/heart palpitation ED Provider: Turner Cornell Discharge Problem: Atypical chest pain, Fatigue, Anemia Patient Disposition: Admitted As Inpatient Discharge Instructions Interventions: ED Discharge Assessment Last Done: 11/11/19 16:30 Discharge Problem: Fatigue Qualifiers: Fatigue type: unspecified Qualified Code(s): R53.83 - Other fatigue Anemia Qualifiers: Anemia type: unspecified type Qualified Code(s): D64.9 - Anemia, unspecified The scribe's documentation has been prepared under my direction and personally reviewed by me in its entirety. I confirm that the note above accurately reflects all work, treatment, procedures, and medical decision making performed by me.
[2019-11-11] MEDS ORDERED: ACETAMINOPHEN 325 MG TAB PO PRN (17:14)
[2019-11-11] MEDS: FUROSEMIDE 80 MG TAB PO SCH (18:23)
[2019-11-11] MEDS: METOPROLOL TARTRATE 50 MG TAB PO SCH (20:16)
[2019-11-11] MEDS ORDERED: ATORVASTATIN 40 MG TAB PO SCH (21:00)
[2019-11-11] MEDS ORDERED: clonazePAM 0.5 MG TAB PO SCH (21:00)
[2019-11-11] MEDS ORDERED: TRAZODONE HCL 100 MG TAB PO SCH (21:00)
[2019-11-11] MEDS: HEPARIN SOD 5,000 UNIT/0.5 ML VIAL SQ SCH (21:37)
[2019-11-12 02:32] LABS: Hematocrit (blood only) 42.5 % (42-52); Mean Corpuscular Hemoglobin 28.5 pg (25-34); Mean Corpuscular Hgb Conc 32.9 g/dL (32-36); Mean Corpuscular Volume 86.4 fL (80-100); Mean Platelet Volume 9.2 fL (7.4-10.4); Platelet Count 360 K/uL (130-400); RDW Coefficient of Variation 13.3 % (11.5-14.5); RDW Standard Deviation 42.2 fL (36.4-46.3); Red Blood Count 4.92 M/uL (4.7-6.1); White Blood Count 8.12 K/uL (4.8-10.8)
[2019-11-12 02:51] LABS: BUN Creatinine Ratio 13.1 (10-20); Blood Urea Nitrogen 14 mg/dl (7-18); Calcium 8.7 mg/dl (8.5-10.1); Carbon Dioxide 30 mmol/L (21-32); Chloride 104 mmol/L (98-107); Creatinine Clr Calc Pharmacy 108.8 ml/min; Est GFR (Non-African American) 75.9; Glucose 100 mg/dl (70-99); Potassium 3.9 mmol/L (3.5-5.1); Sodium 139 mmol/L (136-145)
[2019-11-12 02:56] LABS: Chol HDL Ratio 4; Cholesterol 141 mg/dl (0-200); HDL Cholesterol 37 mg/dl; LDL Cholesterol Calculated 69 mg/dl; Triglycerides 176 mg/dl (0-150); Troponin I < 0.015 ng/ml (0-0.045); VLDL Cholesterol 35 mg/dl
[2019-11-12] MEDS: HEPARIN SOD 5,000 UNIT/0.5 ML VIAL SQ SCH ×2 (06:21→14:43)
[2019-11-12 06:31] LABS: Estimated Average Glucose 131 mg/dl; Hemoglobin A1C 6.2 % (4.5-5.6)
[2019-11-12] MEDS ORDERED: PERFLUTREN LIPID MICROSPHERE (DEFINITY) IV ONE (07:32)
--- NOTE | 2019-11-12 08:59 | Cardiology Consultation ---
Date of Consultation November 12, 2019 Assessment & Plan (1) Angina of effort: (2) Morbid obesity with BMI of 45.0-49.9, adult: (3) Fatigue: I have ordered an echocardiogram for this patient to rule out ischemic cardiomyopathy as an etiology to his symptoms. He is in a normal sinus rhythm so I do not believe a cardiac arrhythmia such as atrial fibrillation is causing his symptoms. His labs look fairly unremarkable however, I did order a TSH level to exclude hypothyroidism as an etiology of his fatigue. He has chronic stable angina of which the pattern has not changed. I do not believe a stress test is indicated. I will review his echocardiogram when it is completed and if it is unremarkable then I think he can be discharged to outpatient follow-up. History of Present Illness Attending Physician: Jania Henderson MD History of Present Illness This is a 59-year-old male patient with a history of coronary artery bypass surgery in [address] [facility]. He had a revised sternotomy in 2018. Approximately a year ago he had a follow-up cardiac catheterization that revealed all 3 bypass grafts to be patent. He does have [place] coronary artery disease which is treated medically. He has stable exertional angina for which he takes an occasional sublingual nitroglycerin. In September he decided to start going to the gym. He has been pretty consistent with a 3-day routine. He lifts weights as well as doing cardio. He has noticed increased fatigue and general tiredness. No real shortness of breath but he does state that when he tries to walk up steps his legs become tired. His anginal pattern has not changed and actually that is not why he came to the hospital. He went to his primary care physician's office with the above complaints without an appointment and was referred to the hospital. He is morbidly obese and expected to lose weight by exercising however, he is actually gained weight which is of concern to him. This is not fluid weight as he is not had any lower extremity edema. It is hard to say regarding increasing abdominal girth. He actually denies shortness of breath or dyspnea, he just has fatigue with activity. He denies orthopnea. After admission, his cardiac markers are negative, EKG shows no acute changes, and his chest x-ray shows no congestive heart failure. Past medical history: Thoracic aortic ectasia (HCC) Chronic diastolic congestive heart failure (HCC) Morbid obesity with BMI of 40.0-44.9, adult ([facility]) S/P INTEST INFECTION CLOSTRIDIUM DIFFICILE 01/08 Mixed dyslipidemia HTN, goal below 140/90 Gastroesophageal reflux Anxiety state Prediabetes Irritable bowel syndrome Acute midline low back pain with left-sided sciatica MEDICATION USE AGREEMENT ASCVD (arteriosclerotic cardiovascular disease) S/P CABG x 3 VERÓNICA (obstructive sleep apnea) Allergies Allergy/AdvReac Type Severity Reaction Status Date / Time adhesive Allergy Mild Rash Verified 08/18/19 08:37 Poison Jo-Ann Extract/Poison Allergy Mild Rash Uncoded 08/18/19 08:37 [place] Extra Home Medications Home Medications Medication Instructions Recorded Confirmed Type atorvastatin 80 mg PO PM 10/06/18 11/11/19 History bupropion HCl 300 mg PO QAM 10/06/18 11/11/19 History colestipol 1 g PO BID PRN 10/06/18 11/11/19 History cyanocobalamin (vitamin B-12) 1,000 mcg SUBLINGUAL QAM 10/06/18 11/11/19 History duloxetine [Cymbalta] 60 mg PO QAM 10/06/18 11/11/19 History furosemide 80 mg PO BID 10/06/18 11/11/19 History metoprolol tartrate 50 mg PO BID 10/06/18 11/11/19 History nitroglycerin 1 tab SUBLINGUAL UD PRN 10/06/18 11/11/19 History potassium chloride 40 meq PO QAM 10/06/18 11/11/19 History trazodone 300 mg PO QPM 10/06/18 11/11/19 History aspirin 162 mg PO DAILY 11/11/19 11/11/19 History clonazepam 0.5 mg PO HS 11/11/19 11/11/19 History hydroxyzine pamoate 25 mg PO BID 11/11/19 11/11/19 History isosorbide mononitrate 60 mg PO DAILY 11/11/19 11/11/19 History sertraline 50 mg PO DAILY 11/11/19 11/11/19 History Patient History Medical History Anxiety Atrial fibrillation hx of after triple CABG--no longer have Chronic back pain Chronic diastolic CHF (congestive heart failure) Complex sleep apnea syndrome Depression GERD (gastroesophageal reflux disease) Hearing deficit History of gastric ulcer Hyperlipidemia Hypertension Myocardial Infarction before 2016 "silent heart attack" On home oxygen therapy on 2L bipap at HS VERÓNICA (obstructive sleep apnea) Sleep apnea BIPAP--2L at HS Surgical History History of cardiac cath 06/2017 @ [facility]--no stent History of colonoscopy History of esophagogastroduodenoscopy (EGD) History of hernia repair x3 History of sternectomy 04/2018 @ [facility] [place] "repair of sternum" History of surgery x6 lipoma removal off back History of tonsillectomy History of tooth extraction History of wisdom tooth extraction Hx of inguinal hernia repair S/P CABG x 3 04/2017 @ [facility] [place] Family History Mother Coronary heart disease Father Coronary heart disease Other No family history of adverse response to anesthesia Social History Preferred Language: Nepalese Communication Ability: Effective Psychiatric Mental Health Nurse Required: No Beliefs That Will Affect Care: None Current Living Situation: Spouse and Family Current Living Situation Comment: Lives with and son Other Information That Helps Us Care for You: No Feels Safe at Home: Yes Safety Concerns: Feels Safe At This Time Smoking Status: Former smoker Second Hand Exposure: Yes (In [place] around smoke) ; Hx Alcohol Use: No (none since 04/2018) Hx Substance Use: No Review of Systems Review of Systems: All systems reviewed & are unremarkable except as noted in HPI & below Nothing additional to add. Physical Exam Physical Exam: General: no acute distress and stated age Head: normocephalic, no masses, lesions, tenderness or abnormalities Eyes: conjunctiva are pink and non-injected, sclera clear Neck: supple, no adenopathy, no bruits, normal jugular venous pulse, no hepatojugular reflux Chest: normal shape and normal respiratory effort Lungs: clear to auscultation and percussion Cardiac Exam: - regular rate & rhythm, no murmurs gallops or rubs - normal S1, normal S2 Pulses: 2(+) throughout Abdomen: abdomen soft, non-tender, no abnormal masses and no hepatosplenomegaly Musculoskeletal: no gait disturbance, no joint inflammation, no deforming arthritis Extremities: no edema and no cyanosis Neuro: grossly normal exam Results & Data ([facility]) Vital Signs (Past 12 Hours) Vital Signs Temp Pulse Resp BP Pulse Ox 11/12/19 08:27 36.8 C 99 H 18 157/70 H 91 11/12/19 07:47 36.8 C 66 18 157/70 H 91 11/12/19 03:20 36.6 C 75 18 100/66 92 11/11/19 23:30 36.8 C 69 18 98/60 L 93 Laboratory Results Laboratory Results - last 24 hr 11/11/19 11/11/19 11/11/19 14:05 14:05 14:05 WBC 8.40 RBC 5.02 Hgb 14.3 Hct 43.3 MCV 86.3 MCH 28.5 MCHC 33.0 RDW Std Deviation 42.3 RDW Coeff of Deanne 13.4 Plt Count 371 MPV 9.4 Immature Gran % (Auto) 0.2 Neut % (Auto) 53.9 Lymph % (Auto) 32.4 [place] % (Auto) 9.9 Eos % (Auto) 2.9 Baso % (Auto) 0.7 Immature Gran # (Auto) 0.02 Neut # (Auto) 4.53 Lymph # (Auto) 2.72 [place] # (Auto) 0.83 H Eos # (Auto) 0.24 Baso # (Auto) 0.06 PT 11.1 INR 1.1 APTT 29.2 PTT Ratio 1.0 Sodium 136 Potassium 3.8 Chloride 102 Carbon Dioxide 29 Anion Gap 6.0 BUN 15 Creatinine 1.01 Est Cr Clr Drug Dosing 115.6 Est GFR ( Amer) 93.3 Est GFR (Non-Af Amer) 80.5 BUN/Creatinine Ratio 15.0 Glucose 92 Estimat Average Glucose Hemoglobin A1c Calcium 9.2 Total Bilirubin 0.4 AST 20 ALT 40 Alkaline Phosphatase 122 H Troponin I < 0.015 NT-Pro-B Natriuret Pep 33 Total Protein 7.0 Albumin 3.8 Globulin 3.2 Albumin/Globulin Ratio 1.2 Triglycerides Cholesterol LDL Cholesterol, Calc VLDL Cholesterol, Calc HDL Cholesterol Cholesterol/HDL Ratio Lipase 121 11/11/19 11/12/19 11/12/19 20:10 02:05 02:05 WBC 8.12 RBC 4.92 Hgb 14.0 Hct 42.5 MCV 86.4 MCH 28.5 MCHC 32.9 RDW Std Deviation 42.2 RDW Coeff of Deanne 13.3 Plt Count 360 MPV 9.2 Immature Gran % (Auto) Neut % (Auto) Lymph % (Auto) [place] % (Auto) Eos % (Auto) Baso % (Auto) Immature Gran # (Auto) Neut # (Auto) Lymph # (Auto) [place] # (Auto) Eos # (Auto) Baso # (Auto) PT INR APTT PTT Ratio Sodium 139 Potassium 3.9 Chloride 104 Carbon Dioxide 30 Anion Gap 5.0 BUN 14 Creatinine 1.06 Est Cr Clr Drug Dosing 108.8 Est GFR ( Amer) 88.0 Est GFR (Non-Af Amer) 75.9 BUN/Creatinine Ratio 13.1 Glucose 100 H Estimat Average Glucose Hemoglobin A1c Calcium 8.7 Total Bilirubin AST ALT Alkaline Phosphatase Troponin I < 0.015 < 0.015 NT-Pro-B Natriuret Pep Total Protein Albumin Globulin Albumin/Globulin Ratio Triglycerides 176 H Cholesterol 141 LDL Cholesterol, Calc 69 VLDL Cholesterol, Calc 35 HDL Cholesterol 37 Cholesterol/HDL Ratio 4 Lipase 11/12/19 02:05 WBC RBC Hgb Hct MCV MCH MCHC RDW Std Deviation RDW Coeff of Deanne Plt Count MPV Immature Gran % (Auto) Neut % (Auto) Lymph % (Auto) [place] % (Auto) Eos % (Auto) Baso % (Auto) Immature Gran # (Auto) Neut # (Auto) Lymph # (Auto) [place] # (Auto) Eos # (Auto) Baso # (Auto) PT INR APTT PTT Ratio Sodium Potassium Chloride Carbon Dioxide Anion Gap BUN Creatinine Est Cr Clr Drug Dosing Est GFR ( Amer) Est GFR (Non-Af Amer) BUN/Creatinine Ratio Glucose Estimat Average Glucose 131 Hemoglobin A1c 6.2 H Calcium Total Bilirubin AST ALT Alkaline Phosphatase Troponin I NT-Pro-B Natriuret Pep Total Protein Albumin Globulin Albumin/Globulin Ratio Triglycerides Cholesterol LDL Cholesterol, Calc VLDL Cholesterol, Calc HDL Cholesterol Cholesterol/HDL Ratio Lipase Medications Administered Current Inpatient Medications Acetaminophen (Tylenol) 650 mg PO Q4H PRN PRN Reason: Pain or Fever Stop: 12/11/19 17:13 Aspirin (Ecotrin Ectab) 162 mg PO DAILY MERVIN Stop: 12/12/19 08:59 Atorvastatin Calcium (Lipitor) 80 mg PO PM MERVIN Stop: 12/11/19 20:59 Last Admin: 11/11/19 20:16 Dose: 80 mg Documented by: Bupropion HCl (Wellbutrin-Xl) 300 mg PO QAM [facility] Stop: 12/12/19 08:59 Clonazepam (Klonopin) 0.5 mg PO HS [facility] Stop: 12/11/19 20:59 Last Admin: 11/11/19 20:19 Dose: 0.5 mg Documented by: Cyanocobalamin (Vitamin B-12) 1,000 mcg PO QAM [facility] Stop: 12/12/19 08:59 Duloxetine HCl (Cymbalta) 60 mg PO QAM MERVIN Stop: 12/12/19 08:59 Furosemide (Lasix) 80 mg PO BID17 [facility] Stop: 12/11/19 17:44 Last Admin: 11/11/19 18:23 Dose: 80 mg Documented by: Heparin Sodium (Porcine) (Heparin Sodium (Porcine)) 5,000 units SQ Q8 MERVIN Stop: 12/11/19 21:59 Last Admin: 11/12/19 06:21 Dose: 5,000 units Documented by: Hydroxyzine HCl (Vistaril) 25 mg PO BID [facility] Stop: 12/11/19 20:59 Last Admin: 11/11/19 20:15 Dose: 25 mg Documented by: Isosorbide Mononitrate (Imdur Extended Rel) 60 mg PO DAILY [facility] Stop: 12/12/19 08:59 Metoprolol Tartrate (Lopressor) 50 mg PO BID [facility] Stop: 12/11/19 20:59 Last Admin: 11/11/19 20:16 Dose: 50 mg Documented by: Nitroglycerin (Nitrostat) 0.4 mg SL UD PRN PRN Reason: Chest Pain Stop: 12/11/19 17:13 Potassium Chloride (Klor-Con M20) 40 meq PO QAM [facility] Stop: 12/12/19 08:59 Sertraline HCl (Zoloft) 50 mg PO DAILY [facility] Stop: 12/12/19 08:59 Trazodone HCl (Desyrel) 300 mg PO QPM [facility] Stop: 12/11/19 20:59 Last Admin: 11/11/19 20:16 Dose: 300 mg Documented by: (1) Fatigue Fatigue type: unspecified Qualified Code(s): R53.83 - Other fatigue
[2019-11-12] MEDS ORDERED: BuPROPion XL 300 MG TABCR PO SCH (09:00)
[2019-11-12] MEDS ORDERED: CYANOCOBALAMIN 500 MCG TABLET (VITAMIN B-12) PO SCH (09:00)
[2019-11-12] MEDS ORDERED: ISOSORBIDE MONO EXTENDED REL 60 MG TABCR PO SCH (09:00)
[2019-11-12] MEDS ORDERED: DULOXETINE HCL 60 MG CAP PO SCH (09:00)
[2019-11-12] MEDS: METOPROLOL TARTRATE 50 MG TAB PO SCH (09:00)
[2019-11-12] MEDS ORDERED: SERTRALINE HCL 50 MG TABLET PO SCH (09:00)
[2019-11-12] MEDS ORDERED: POTASSIUM CHLORIDE 20 MEQ TABCR PO SCH (09:00)
[2019-11-12] MEDS ORDERED: ASPIRIN 81 MG ECTAB PO SCH (09:00)
[2019-11-12] MEDS: FUROSEMIDE 80 MG TAB PO SCH (09:36)
--- NOTE | 2019-11-12 14:46 | Electrocardiogram Report ---
Test Reason : Blood Pressure : / mmHG Vent. Rate : 073 BPM Atrial Rate : 073 BPM P-R Int : 230 ms QRS Dur : 152 ms QT Int : 466 ms P-R-T Axes : 062 -84 045 degrees QTc Int : 513 ms Sinus rhythm with 1st degree A-V block Left axis deviation Right bundle branch block Possible Old Inferior infarct Abnormal ECG When compared with ECG of 11-NOV-2019 13:49, No significant change was found Confirmed by Javid Raman ([id number]) on 11/12/2019 2:46:28 PM Referred By: REFERRED SELF Confirmed By:Javid Raman
--- NOTE | 2019-11-12 19:13 | Hospitalist Progress Note ---
Date of Service November 12, 2019 Assessment & Plan (1) Chest pain: Present on admission with chest pain and SOB CXR showed no acute changes Troponin x3 negative EKG showed no ischemic changes Cardiology on board ECHO showed no wall motion abnormality with EF 60-65 % Case discussed with cardiology and no additional testing Continue Aspirin, statin and metoprolol Ok from cardiology to discharge home today (2) Chronic diastolic CHF (congestive heart failure): Pt reports weight gain over past 2 weeks and taking additional lasix for past 10 days Currently pt does not appear volume overloaded Continue lasix 80mg BID, potassium supplement Stable (3) Hypertension: Continue metoprolol (4) HLD (hyperlipidemia): -Continue atorvastatin (5) Pre-diabetes: A1c: 6.2 on 11/12/19 stable (6) Depression: H/O depression and anxiety Continue home meds (7) Morbid obesity with BMI of 45.0-49.9, adult: BMI: 46 Lifestyle modifications recommended Diet and exercise DVT Prophylaxis Heparin SQ Admission and Anticipated Discharge Date Admission Date: November 11, 2019 Subjective Pt was seen and examined Sitting in chair with no distress Pt said that he feels fine He said that he has no chest discomfort today Denies any fever, palpitation, chest pain and SOB Physical Exam Physical Exam: General- No acute distress Head- atraumatic Eyes- PERRL, EOMI, ENT- oropharynx clear Neck- supple, no JVD Lungs- clear to auscultation Heart- regular rhythm; no murmur Abdomen- normal bowel sounds, soft, nontender Extremities- no calf tenderness Neuro- alert, oriented x 3; PERRL, EOMI; no facial palsy; no dysarthria Skin- warm & dry Results & Data ([facility]) Vital Signs (Past 12 Hours) Vital Signs Temp Pulse Pulse Pulse Resp BP Pulse Ox 11/12/19 16:06 36.9 C 65 63 19 103/66 90 11/12/19 15:53 66 11/12/19 11:01 36.9 C 63 19 103/66 90 11/12/19 08:27 36.8 C 99 H 18 157/70 H 91 11/12/19 08:00 72 11/12/19 07:47 36.8 C 66 18 157/70 H 91
--- NOTE | 2019-11-13 08:52 | Discharge Summary ---
Date of Service November 12, 2019 Admission HPI Per Admitting Provider Pt is 59 y/o M with PMH CAD s/p CABG x3 in 2017, chronic diastolic CHF, HTN, HLD, GERD, prediabetes, VERÓNICA, obesity, chronic low back pain presented to ER with complaint of chest pain. Patient with chronic left-sided chest pain and shortness of breath, with associated dizziness and nausea with exertion relieved with rest in approximately 15 minutes. Patient reports he has been going to the gym 3 days a week lifting weights and doing a stepper for approximately 20 minutes. He states that 2-3 times a week he requires nitroglycerin with relief of chest pain. Patient states the past week he has noticed decreased exercise intolerance and fatigue. He reports was carrying wood several days ago and felt like he had increased shortness of breath and felt like his heart was pounding, and he had to stop and rest to resolve symptoms. Patient takes 80 mg Lasix twice daily. He reports pedal edema at night. Denies any increased edema. Reports chronic orthopnea, denies any worsening. He states he has gained appr oximately 10 to 15 pounds over the last 2 weeks, so he has been taking an additional Lasix daily. Today patient began with left-sided chest pain and shortness of breath. He was given aspirin and 2 sprays of nitroglycerin in route with complete resolution of chest pain. Denies fever/chills, diaphoresis, V/D/C, WELLS, syncope, vision changes, neck pain, cough, sore throat, choking, otalgia, rhinorrhea, abdominal pain, paresthesias, weakness, extremity weakness, rashes, urinary symptoms. Stress echo 09/2018: Negative inducible ischemia, EF: 55-60%, grade 2 diastolic dysfunction, mild enlargement ascending aorta. Cardiac cath 12/2018 at [facility] [place]: 40% stenosis left main, 90% stenosis mid LAD, 95% ostial circumflex stenosis, 50% stenosis right coronary artery, all 3 bypass grafts patent Patient treated with medical management Admission Exam Per Admitting Provider General: no distress, obese Head: normocephalic, atraumatic Eyes: PERRL, EOM's intact, conjunctiva non-injected, anicteric ENT: normal inspection external ears, nose, mucous membranes moist Neck: supple, trachea midline Lungs: clear, no respiratory distress, no wheezing/rhonchi/rales CV: RRR, no murmur, no pretibial edema Chest: +vertical mid chest scar Abd: normal BS, soft, protuberant, non-tender Ext: no cyanosis, no calf tenderness Neuro: A&O x 3, no focal deficits noted, normal affect Skin: warm, dry Principal Diagnosis Chest pain: Chronic diastolic CHF (congestive heart failure): Hypertension: HLD (hyperlipidemia): Discharge Exam General- No acute distress Head- atraumatic Eyes- PERRL, EOMI, ENT- oropharynx clear Neck- supple, no JVD Lungs- clear to auscultation Heart- regular rhythm; no murmur Abdomen- normal bowel sounds, soft, nontender Extremities- no calf tenderness Neuro- alert, oriented x 3; PERRL, EOMI; no facial palsy; no dysarthria Skin- warm & dry Discharge Data Allergies Allergy/AdvReac Type Severity Reaction Status Date / Time adhesive Allergy Mild Rash Verified 08/18/19 08:37 Poison Jo-Ann Extract/Poison Allergy Mild Rash Uncoded 08/18/19 08:37 [place] Extra Consultations 11/11/19 16:17 ED Decision to Admit Stat 11/11/19 17:14 Consult Cardiology Routine Ordered Studies XR chest 1V portable HISTORY: 59 years-old Male Chest Pain acute atypical chest pain COMPARISON: Chest radiograph and CTA chest 05/29/2017 TECHNIQUE: Portable AP view of the chest FINDINGS: Cardiac silhouette is mildly enlarged. Prior median sternotomy. Additional orthopedic hardware projecting over the central chest is new from comparison. There is no pneumothorax, pleural effusion, overt pulmonary edema or airspace consolidation typical for pneumonia. Interstitial opacities of the lung bases are suggestive of fibrosis/atelectasis. Degenerative changes of the shoulders and spine. IMPRESSION: No acute process. ACT 112: Negative or not required by law. The above report was generated using voice recognition software. It may contain grammatical, syntax or spelling errors. Electronically signed by: Mason Perez M.D. 11/11/2019 2:19 PM Dictated: 11/11/191416 Transcribed: 11/11/191416 Hospital Course (1) Chest pain: Present on admission with chest pain and SOB CXR showed no acute changes Troponin x3 negative EKG showed no ischemic changes Cardiology on board ECHO showed no wall motion abnormality with EF 60-65 % Case discussed with cardiology and no additional testing Continue Aspirin, statin and metoprolol Ok from cardiology to discharge home today (2) Chronic diastolic CHF (congestive heart failure): Pt reports weight gain over past 2 weeks and taking additional lasix for past 10 days Currently pt does not appear volume overloaded Continue lasix 80mg BID, potassium supplement Stable (3) Hypertension: Continue metoprolol (4) HLD (hyperlipidemia): -Continue atorvastatin (5) Pre-diabetes: A1c: 6.2 on 11/12/19 stable (6) Depression: H/O depression and anxiety Continue home meds (7) Morbid obesity with BMI of 45.0-49.9, adult: BMI: 46 Lifestyle modifications recommended Diet and exercise DVT Prophylaxis Heparin SQ Total Time Total Time Spent Total Time Spent (In Minutes): 35 minutes Total Time Includes: Examination of the Patient, Discharge Planning, Medication Reconciliation, Communication With Other Providers and Other Discharge Plan Discharge Items Patient Disposition: Home - Self-Care Reason For Visit: CHEST PAIN Discharge Diagnosis: Chest pain: Chronic diastolic CHF (congestive heart failure): Hypertension: HLD (hyperlipidemia): Activity: Resume your previous activity Non-emergency contact: Primary Care Provider Call non-emergency contact if: you have any medication questions Follow-up/Referrals: Mikhail Helton MD [Primary Care Provider] - 11/17/19 2:55 pm Diet: Heart Healthy Addtl Attending Provider Instructions: Follow up with your primary care provider Dr. Helton in 1 week Follow up with your cardiology outpatient Seek medical attention if your symptoms worsening Pending Studies at Discharge: No Stand-Alone Forms: My [employer], Smoking Cessation Medications and DC Order Prescriptions: Continued furosemide 40 mg Tablet 80 mg PO BID RF: 0 atorvastatin 80 mg Tablet 80 mg PO PM RF: 0 trazodone 100 mg Tablet 300 mg PO QPM RF: 0 metoprolol tartrate 50 mg Tablet 50 mg PO BID RF: 0 nitroglycerin 0.4 mg Tablet, Sublingual 1 tab Sublingual UD PRN (Reason: Angina) RF: 0 cyanocobalamin (vitamin B-12) 1,000 mcg Tablet, Sublingual 1,000 mcg SUBLINGUAL QAM RF: 0 colestipol 1 gram Tablet 1 g PO BID PRN (Reason: Diarrhea) RF: 0 bupropion HCl 300 mg Tablet Extended Release 24 Hr 300 mg PO QAM RF: 0 duloxetine [Cymbalta] 60 mg Capsule,Delayed Release(Dr/Ec) 60 mg PO QAM RF: 0 potassium chloride 20 mEq Tablet Extended Release 40 meq PO QAM RF: 0 clonazepam 0.5 mg tablet 0.5 mg PO HS RF: 0 aspirin 81 mg Tablet,Delayed Release (Dr/Ec) 162 mg PO DAILY RF: 0 isosorbide mononitrate 60 mg tablet extended release 24 hr 60 mg PO DAILY RF: 0 hydroxyzine pamoate 25 mg capsule 25 mg PO BID RF: 0 No Action sertraline 50 mg tablet 50 mg PO DAILY RF: 0 Discharge Orders: Discharge Order (Routine); Ordered 11/12/19 Ordered By: Jania Buchanan/Other Patient Handouts: Prediabetes, A1C Admission Data Admit Date/Time: 11/11/19 15:42 Attending Provider: Jania Henderson Admit Provider: Jania Henderson Primary Care Provider: Mikhail Helton Other Providers: Jania Henderson ; Henri Atkins Other Interventions: Discharge Summary Assessment (RN) Last Done: 11/12/19 16:06 DC Date/Time DO NOT enter until pt leaves facility: 11/12/19 16:10
== END 2019-11-12 16:10 | disposition home or self-care (01) ==
LOC: ED 13:44 → 2S 13:44

== ENCOUNTER 2024-11-25 15:34 | Observation (INO) ==
[2024-11-25] MEDS: OPTIRAY 320 125ml IV ONE (15:52)
--- NOTE | 2024-11-25 15:58 | Emergency Department Note ---
Impression & Plan TIA (transient ischemic attack), Elevated troponin ED Provider Note NAME: GERMÁN RIVERA AGE: 64 SEX: M : 1960 ARRIVES VIA: Walk-In INFORMANT: Patient ED PROVIDER(S): Anson Patterson DO CHIEF COMPLAINT: Facial droop and trouble walking HPI: Patient is a 64-year-old male who presents to the ER for symptoms that started around 9 AM. He notes he woke up around 8 and around 9 he was eating and he noticed his face was drooping and food was coming out of the left side of his face. He went to the gym and this eventually went away. He notes that since then he has been unsteady on his feet and been off balance. Denies any headache or change or loss of vision. No chest pain or shortness of breath. No nausea, vomiting, or diarrhea. No dysuria, urgency, or frequency. No other exacerbating or remitting factors. ADDITIONAL HISTORY OBTAINED: Per HPI Chronic Medical/Social Conditions Affecting Care: Per HPI PAST MEDICAL HISTORY:See Below PAST SURGICAL HISTORY:See Below FAMILY HISTORY:See Below SOCIAL HISTORY:See Below HOME MEDICATIONS:See Below ALLERGIES:See Below VITALS:See Below PHYSICAL EXAMINATION: GENERAL: Sitting up in bed, alert, well appearing, well nourished, no distress, non-toxic EYE EXAM: normal conjunctiva. PERRL and EOM's grossly intact. OROPHARYNX: no exudate, no erythema, lips, buccal mucosa, and tongue normal and mucous membranes are moist NECK: supple, no nuchal rigidity, no adenopathy, non-tender LUNGS: Clear to auscultation. Normal chest wall mechanics HEART: no murmurs, S1 normal and S2 normal ABDOMEN: abdomen soft, non-tender, normo-active bowel sounds, no masses, no rebound or guarding. BACK: Back is symmetrical on inspection and there is no deformity, no midline tenderness, no CVA tenderness. SKIN: no rashes and no bruising UPPER EXTREMITIES: upper extremities are grossly normal. LOWER EXTREMITIES: No pitting edema. NEURO EXAM: Normal sensorium, cranial nerves II-XII normal speech, no weakness of arms, no weakness of legs. No drift. [id number] intact. MEDICAL DECISION MAKING: Patient is a 64-year-old male who presents ER for the above-stated complaint. Stroke alert was called upon arrival. IV was established and blood work was obtained. Labs show no significant leukocytosis or anemia. INR unremarkable. BMP with LFTs and bilirubin was unremarkable. Troponin eventually resulted at 200. UA was clean. He has no chest pain. Does have a history of previous hemorrhagic stroke. He is not within the window. He is not a TNK candidate. I did discuss case with [place] telestroke neurology. They recommended admission aspirin and statin and MRIs and additional workup. Case was discussed with the hospitalist for further evaluation management treatment. Consults/Care Managements Discussions: Per [facility] Triage Nursing notes reviewed. Limited review of prior medical records performed Vital Signs: reviewed and remarkable for HTN Differential diagnosis: Differential Diagnosis includes but is not limited to ischemic Stroke, hemorrhagic stroke, bells palsy, mass, neoplasm, migraine headache, seizure, subarachnoid hemorrhage, TIA, and transient global amnesia. ER treatment provided: See below Diagnostics interpreted by me include EKG and cardiac monitoring as listed below: -Cardiac Monitoring: An order was placed for continuous cardiac monitoring. The monitor shows a rate of 90 with sinus rhythm. -ECG: Sinus rhythm with a first-degree AV block rate of 74 Right bundle branch block Inferior Q waves QTc 492 -Laboratory studies:Interpreted by me as stated above in MDM and shown below. Imaging studies: Xrays: As interpreted by me:none CTs show: CT of the head per my pleurae interpretation showed no obvious large bleed CT angios of the head and neck showed no acute pathology but chronic findings including 60 to 80% stenosis which neurology noted would not need to be intervened at this time. 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 Multiple closed fractures of metatarsal bone of left foot Epigastric abdominal pain PTSD (post-traumatic stress disorder) Seizure-like activity Angina of effort Chest pain (Acute) Chronic diastolic CHF (congestive heart failure) Atypical chest pain (Acute) Fatigue (Acute) Anemia (Acute) Complex sleep apnea syndrome VERÓNICA (obstructive sleep apnea) History of melena Encounter for pre-operative examination Hypertension (Chronic) Irritable bowel syndrome (Chronic) HLD (hyperlipidemia) (Chronic) Pre-diabetes (Chronic) Chronic pain syndrome (Chronic) Anxiety (Chronic) Depression (Chronic) Morbid obesity with BMI of 45.0-49.9, adult (Chronic) GERD (gastroesophageal reflux disease) (Chronic) Medical History Non-traumatic compression fracture of vertebral column Chronic back pain History of gastric ulcer GERD (gastroesophageal reflux disease) Hearing deficit Anxiety Depression Atrial fibrillation hx of after triple CABG--no longer have Hypertension Hyperlipidemia Myocardial Infarction before 2017 "silent heart attack" On home oxygen therapy on 2L bipap at HS Sleep apnea BIPAP--2L at HS Surgical History History of surgery x6 lipoma removal off back History of hernia repair x3 Hx of inguinal hernia repair History of colonoscopy History of esophagogastroduodenoscopy (EGD) History of tooth extraction History of wisdom tooth extraction History of tonsillectomy History of cardiac cath 06/2017 @ [facility]--no stent History of sternectomy 04/2018 @ [facility] [place] "repair of sternum" S/P CABG x 3 04/2017 @ [facility] [place] Family History Mother Coronary heart disease Father Coronary heart disease Other No family history of adverse response to anesthesia Social History Smoking Status: Former smoker Tobacco Type: Cigarettes Second Hand Exposure: Yes (In [place] around smoke); Do You Dip or Chew Tobacco: No; Hx Alcohol Use: No Hx Substance Use: No Preferred Language: Swedish Communication Ability: Effective Corporate Intern Required: No Beliefs That Will Affect Care: None Current Living Situation: Spouse Current Living Situation Comment: Lives with and son Feels Safe at Home: Yes Safety Concerns: Feels Safe At This Time Assistive Devices: Glasses Allergies Allergies Allergy/AdvReac Type Severity Reaction Status Date / Time adhesive Allergy Mild Rash Verified 11/25/24 16:11 butalbital [From Fioricet] AdvReac Intermediate NAUSEA/VOMI Verified 11/25/24 16:11 TING caffeine [From Fioricet] AdvReac Intermediate NAUSEA/VOMI Verified 11/25/24 16:11 TING terazosin AdvReac Intermediate Dizziness Verified 11/25/24 16:11 Poison Jo-Ann Extract/Poison Allergy Mild Rash Uncoded 11/25/24 16:11 [place] Extra Home Meds Home Medications Medication Instructions Recorded Confirmed furosemide 80 mg tablet (Lasix) 80 mg PO QAM 08/02/20 11/25/24 carboxymethylcellulose sodium 0.5 1 drp OPB DIRECTED PRN Dry Eyes 04/14/21 11/25/24 % eye drops (Refresh Tears) cyclobenzaprine 10 mg tablet 10 mg PO DAILY MUSCLE SPASMS 11/03/21 11/25/24 sertraline 100 mg tablet 200 mg PO QAM 11/03/21 11/25/24 artificial tears with lanolin eye 1 applic OPL HS 05/03/23 11/25/24 ointment donepezil 10 mg tablet 10 mg PO DAILY 05/03/23 11/25/24 acetaminophen 500 mg tablet 6,000 - 10,000 mg PO DAILY PRN Pain 07/27/24 11/25/24 (Tylenol Extra Strength) aspirin 81 mg tablet,delayed 81 mg PO QAM 07/27/24 11/25/24 release (Ayaka Low Dose Aspirin) atorvastatin 80 mg tablet 80 mg PO DAILY 07/27/24 11/25/24 bupropion HCl 150 mg tablet,12 hr 150 mg PO BID 07/27/24 11/25/24 sustained-release cyanocobalamin (vitamin B-12) 2,000 mcg PO DAILY 07/27/24 11/25/24 1,000 mcg tablet (Vitamin B-12) folic acid 1 mg tablet 1 mg PO DAILY 07/27/24 11/25/24 isosorbide mononitrate 120 mg 120 mg PO DAILY 07/27/24 11/25/24 tablet,extended release 24 hr potassium chloride 20 mEq 20 meq PO DAILY 07/27/24 11/25/24 tablet,extended release(part/cryst) ranolazine 500 mg tablet,extended 500 mg PO BID 07/27/24 11/25/24 release,12 hr trazodone 50 mg tablet 400 mg PO QPM 07/27/24 11/25/24 semaglutide (weight loss) 1.7 1.7 mg subcut WK 11/25/24 11/25/24 mg/0.75 mL subcutaneous pen injector (Dilshad) Previous Rx's Medication Instructions Recorded nitroglycerin 0.4 mg sublingual 0.4 mg sublingual ONCE PRN chest 11/03/21 tablet pain #14 tabs omeprazole 40 mg capsule,delayed 40 mg PO BID #180 caps 05/21/23 release polyethylene glycol 3350 17 17 g PO DAILY #510 grams 05/21/23 gram/dose oral powder (Miralax) famotidine 20 mg tablet 20 mg PO DAILY #30 tabs 05/31/23 Results & Data (ED) Vital Signs Vital Signs - 24 hr 11/25/24 15:35 11/25/24 16:16 11/25/24 16:35 Temperature 37.1 C Temperature Source Temporal Artery Scan Pulse Rate 93 H 74 Pulse Rate [Right Finger] 74 Pulse Rhythm [Right Finger] Regular Pulse Strength [Right Finger] Normal Respiratory Rate 18 24 Respiratory Effort / Characteristics Non-Labored Spontaneous Non-Labored Spontaneous Respiratory Depth Normal Normal Respiratory Pattern Regular Regular Blood Pressure 177/102 H Blood Pressure [Right Arm] 158/88 H Blood Pressure Mean 127 Blood Pressure Mean [Right Arm] 111 Blood Pressure Position Sitting Blood Pressure Position [Right Arm] Lying Pulse Oximetry 95 95 Oxygen Delivery Method Room Air Room Air Sepsis Recent Fever Within 48 Hours No Sepsis New/Unexplained Change in Mental Status N/A Sepsis Action Taken by Nursing No Action Required 11/25/24 16:47 11/25/24 16:58 Temperature Temperature Source Pulse Rate Pulse Rate [Right Finger] 72 74 Pulse Rhythm [Right Finger] Regular Regular Pulse Strength [Right Finger] Normal Normal Respiratory Rate 20 22 Respiratory Effort / Characteristics Non-Labored Spontaneous Non-Labored Spontaneous Respiratory Depth Normal Normal Respiratory Pattern Regular Regular Blood Pressure Blood Pressure [Right Arm] 152/95 H 167/106 H Blood Pressure Mean Blood Pressure Mean [Right Arm] 114 126 Blood Pressure Position Blood Pressure Position [Right Arm] Lying Sitting Pulse Oximetry 95 97 Oxygen Delivery Method Room Air Room Air Sepsis Recent Fever Within 48 Hours Sepsis New/Unexplained Change in Mental Status Sepsis Action Taken by Nursing Laboratory Data 11/25/24 15:45 11/25/24 19:37 Lab Results 11/25/24 11/25/24 Range/Units 15:45 15:50 WBC 6.66 (4.8-10.8) K/ul RBC 4.88 (4.70-6.10) M/uL Hgb 14.5 (14.0-18.0) g/dl POC Hgb 14.6 (14.0-18.0) g/dl Hct 43.0 (42.0-52.0) % POC Hct 43 (42-52) % MCV 88.1 (80.0-100.0) fL MCH 29.7 (25.0-34.0) pg MCHC 33.7 (32.0-36.0) g/dL RDW Std Deviation 43.6 (36.4-46.3) fL RDW Coeff of Deanne 13.5 (11.5-14.5) % Plt Count 337 (130-400) K/uL MPV 9.5 (9.4-12.4) fL Immature Gran % (Auto) 0.3 % Neut % (Auto) 56.7 % Lymph % (Auto) 32.0 % Page % (Auto) 7.2 % Eos % (Auto) 2.9 % Baso % (Auto) 0.9 % Neut # (Auto) 3.78 (1.40-6.50) K/uL Lymph # (Auto) 2.13 (1.20-3.40) K/uL Page # (Auto) 0.48 (0.11-0.59) K/uL Eos # (Auto) 0.19 (0.00-0.50) K/uL Baso # (Auto) 0.06 (0.00-0.20) K/uL Immature Gran # (Auto) 0.02 (0.01-0.20) K/uL PT 10.5 (9.0-12.0) Seconds INR 1.0 (0.9-1.1) APTT 23 (21-31) Seconds PTT Ratio 0.9 POC Sodium 139 (135-144) mmol/L Sodium Cancelled POC Potassium 4.5 (3.3-5.0) mmol/L Potassium Cancelled POC Chloride 101 (101-112) mmol/L Chloride Cancelled Carbon Dioxide Cancelled POC Total CO2 28 (24-31) mmol/L Anion Gap Cancelled POC Anion Gap 16.0 (16-25) mmol/L POC BUN 7 (7-18) mg/dl BUN Cancelled Creatinine Cancelled POC Creatinine 1.0 (0.6-1.3) mg/dl Est Cr Clr Drug Dosing Cancelled eGFR Cancelled BUN/Creatinine Ratio Cancelled Glucose Cancelled POC Glucose (other) 113 H (70-99) mg/dl Calcium Cancelled POC Ioniz Calcium Ryland 1.19 (1.12-1.32) mmol/l Magnesium Cancelled Total Bilirubin Cancelled AST Cancelled ALT Cancelled Alkaline Phosphatase Cancelled Troponin I High Sens 210.6 H* (0-20) pg/ml Total Protein Cancelled Albumin Cancelled Globulin Cancelled Albumin/Globulin Ratio Cancelled Administered Medications Acetaminophen (Acetaminophen 325 Mg Tab) 650 mg PO Q4H PRN PRN Reason: Pain or Fever Stop: 12/25/24 18:41 Last Admin: 11/25/24 19:23 Dose: 650 mg Documented By: JAMES Bupropion HCl (Bupropion Sr 150 Mg Tabcr) 150 mg PO BID [facility] Stop: 12/25/24 20:59 Last Admin: 11/25/24 21:01 Dose: 150 mg Documented By: JAMES Sodium Chloride (Nss) 500 mls @ 100 mls/hr IV .Q5H [facility] Stop: 11/25/24 21:44 Last Infusion: 11/25/24 21:09 Dose: 0 mls/hr Documented By: KDFrancis Admin: 11/25/24 16:56 Dose: 100 mls/hr Documented By[place] [facility] [place] Multi-Ingredient Cream (Artificial Tears Op Oint 3.5 Gm Tube) 1 appln OPL HS [facility] Stop: 12/25/24 20:59 Last Admin: 11/25/24 21:03 Dose: Not Given Documented By: JAMES Pantoprazole Sodium (Pantoprazole 40 Mg Tab) 40 mg PO BID [facility]; Protocol Stop: 12/25/24 20:59 Last Admin: 11/25/24 21:00 Dose: 40 mg Documented By: KDFrancis Ranolazine (Ranolazine 500 Mg Er Tab) 500 mg PO BID [facility] Stop: 12/25/24 20:59 Last Admin: 11/25/24 21:00 Dose: 500 mg Documented By: KDFrancis Trazodone HCl (Trazodone Hcl 100 Mg Tab) 400 mg PO DAILY@1800 [facility] Stop: 12/25/24 19:14 Last Admin: 11/25/24 19:19 Dose: 400 mg Documented By: KDL Discontinued Medications Gadobutrol (Gadobutrol 65ml Vial) 12 ml IV ONCE ONE Stop: 11/25/24 20:14 Last Admin: 11/25/24 20:13 Dose: 12 ml Documented By: FIOR Ioversol (Optiray 320 125ml) 119 ml IV ONCE ONE Stop: 11/25/24 15:52 Last Admin: 11/25/24 15:52 Dose: 119 ml Documented By: CATHY Imaging Data Radiologist's Impression: Head CT 11/25/24 15:42 EXAM: CT Head Without Intravenous Contrast INDICATION: Blurry vision. TECHNIQUE: Axial computed tomography images of the head/brain without intravenous contrast. Sagittal and/or coronal reformats are provided. Sagittal and coronal reformatted images were created and reviewed. This CT exam was performed using one or more of the following dose reduction techniques: automated exposure control, adjustment of the mA and/or kV according to patient size, and/or use of iterative reconstruction technique. COMPARISON: 07/03/2023 FINDINGS: Limitations: None. Brain and extra-axial spaces: There is age appropriate cortical atrophy and chronic ischemic periventricular white matter hypodensity. No acute infarct, hemorrhage or mass noted. Bones/joints: No acute changes. Soft tissues: No significant abnormality noted. Vasculature: There is intracranial atherosclerotic calcification. Sinuses: No layering fluid in the visualized portions of the paranasal sinuses. Mastoid air cells: No mastoid effusion. Orbits: No significant abnormality noted. IMPRESSION: Cerebral atrophy. No acute changes. Findings discussed by phone with Dr. Patterson at 4:20 PM 11/25/2024 ACT 112: N/A Electronically signed by Stormy Villanueva 11-25-2024 4:24 PM Head CTA 11/25/24 15:42 EXAM: CT Angiography Head and Neck With Intravenous Contrast INDICATION: Blurred vision TECHNIQUE: [place]/head and neck CT angiography protocol performed with intravenous contrast. Sagittal and coronal reformatted images were created and reviewed. This CT exam was performed using one or more of the following dose reduction techniques: automated exposure control, adjustment of the mA and/or kV according to patient size, and/or use of iterative reconstruction technique. MIP reconstructed images were created and reviewed. CONTRAST: 119 cc of Optiray 320 was administered intravenously. COMPARISON: None. FINDINGS: HEAD: Right anterior cerebral artery: No abnormality noted. No occlusion or significant stenosis. Anterior communicating artery is present. No aneurysm. Right middle cerebral artery: No abnormality noted. No occlusion or significant stenosis. No aneurysm. Right posterior cerebral artery: No abnormality noted. No occlusion or significant stenosis. No aneurysm. Right intracranial internal carotid artery: There is moderate atherosclerotic calcification without stenosis, occlusion, aneurysm or dissection. Right intracranial vertebral artery: There is multifocal calcific plaque. There is distal stenosis of up to 75%. No aneurysm, dissection or occlusion. Left anterior cerebral artery: No abnormality noted. No occlusion or significant stenosis. No aneurysm. Left middle cerebral artery: No abnormality noted. No occlusion or significant stenosis. No aneurysm. Left posterior cerebral artery: No abnormality noted. No occlusion or significant stenosis. No aneurysm. Left intracranial internal carotid artery: There is moderate atherosclerotic calcification without stenosis occlusion, aneurysm or dissection. Left intracranial vertebral artery: There is focal distal calcific plaque iwith less than 20% stenosis. No aneurysm, dissection or occlusion. Basilar artery: No abnormality noted. No occlusion or significant stenosis. No aneurysm. Other vasculature: Patent dural venous sinuses. No vascular malformation. NECK: Right common carotid artery: No abnormality noted. No significant stenosis. No dissection or occlusion. Right extracranial internal carotid artery: There is moderate calcific plaque cervical proximal internal carotid bulb with approximate 60% stenosis. No aneurysm, dissection or occlusion. Right external carotid artery: No abnormality noted. No occlusion. Right extracranial vertebral artery: No abnormality noted. No significant stenosis. No dissection or occlusion. Left common carotid artery: No abnormality noted. No significant stenosis. No dissection or occlusion. Left extracranial internal carotid artery: There is moderate proximal calcific plaque with up to a 80% proximal stenosis. No aneurysm, dissection or occlusion. Left external carotid artery: No abnormality noted. No occlusion. Left extracranial vertebral artery: Small focal distal calcific plaque. No aneurysm, dissection, stenosis or occlusion. Lung apices: No significant abnormality noted. HEAD and NECK: Bones/joints: No significant abnormality. Soft tissues: No abnormality noted. CAROTID STENOSIS REFERENCE USING NASCET CRITERIA: % ICA stenosis = (1 - narrowest ICA diameter/diameter of distal cervical ICA) x 100. Mild - <50% stenosis. Moderate - 50-69% stenosis. Severe - 70-94% stenosis. Near occlusion - 95-99% stenosis. Occluded - 100% stenosis. IMPRESSION: 1. Bilateral cervical external/internal carotid arterial stenosis of about 60% on the right and 80% on the left. 2. 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 3. No large vessel occlusion, aneurysm or dissection. Findings discussed by phone with Dr. Patterson at 4:20 PM 11/25/2024 ACT 112: N/A Electronically signed by Stormy Villanueva 11-25-2024 4:24 PM Neck CTA 11/25/24 15:42 EXAM: CT Angiography Head and Neck With Intravenous Contrast INDICATION: Blurred vision TECHNIQUE: [place]/head and neck CT angiography protocol performed with intravenous contrast. Sagittal and coronal reformatted images were created and reviewed. This CT exam was performed using one or more of the following dose reduction techniques: automated exposure control, adjustment of the mA and/or kV according to patient size, and/or use of iterative reconstruction technique. MIP reconstructed images were created and reviewed. CONTRAST: 119 cc of Optiray 320 was administered intravenously. COMPARISON: None. FINDINGS: HEAD: Right anterior cerebral artery: No abnormality noted. No occlusion or significant stenosis. Anterior communicating artery is present. No aneurysm. Right middle cerebral artery: No abnormality noted. No occlusion or significant stenosis. No aneurysm. Right posterior cerebral artery: No abnormality noted. No occlusion or significant stenosis. No aneurysm. Right intracranial internal carotid artery: There is moderate atherosclerotic calcification without stenosis, occlusion, aneurysm or dissection. Right intracranial vertebral artery: There is multifocal calcific plaque. There is distal stenosis of up to 75%. No aneurysm, dissection or occlusion. Left anterior cerebral artery: No abnormality noted. No occlusion or significant stenosis. No aneurysm. Left middle cerebral artery: No abnormality noted. No occlusion or significant stenosis. No aneurysm. Left posterior cerebral artery: No abnormality noted. No occlusion or significant stenosis. No aneurysm. Left intracranial internal carotid artery: There is moderate atherosclerotic calcification without stenosis occlusion, aneurysm or dissection. Left intracranial vertebral artery: There is focal distal calcific plaque iwith less than 20% stenosis. No aneurysm, dissection or occlusion. Basilar artery: No abnormality noted. No occlusion or significant stenosis. No aneurysm. Other vasculature: Patent dural venous sinuses. No vascular malformation. NECK: Right common carotid artery: No abnormality noted. No significant stenosis. No dissection or occlusion. Right extracranial internal carotid artery: There is moderate calcific plaque cervical proximal internal carotid bulb with approximate 60% stenosis. No aneurysm, dissection or occlusion. Right external carotid artery: No abnormality noted. No occlusion. Right extracranial vertebral artery: No abnormality noted. No significant stenosis. No dissection or occlusion. Left common carotid artery: No abnormality noted. No significant stenosis. No dissection or occlusion. Left extracranial internal carotid artery: There is moderate proximal calcific plaque with up to a 80% proximal stenosis. No aneurysm, dissection or occlusion. Left external carotid artery: No abnormality noted. No occlusion. Left extracranial vertebral artery: Small focal distal calcific plaque. No aneurysm, dissection, stenosis or occlusion. Lung apices: No significant abnormality noted. HEAD and NECK: Bones/joints: No significant abnormality. Soft tissues: No abnormality noted. CAROTID STENOSIS REFERENCE USING NASCET CRITERIA: % ICA stenosis = (1 - narrowest ICA diameter/diameter of distal cervical ICA) x 100. Mild - <50% stenosis. Moderate - 50-69% stenosis. Severe - 70-94% stenosis. Near occlusion - 95-99% stenosis. Occluded - 100% stenosis. IMPRESSION: 1. Bilateral cervical external/internal carotid arterial stenosis of about 60% on the right and 80% on the left. 2. 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 3. No large vessel occlusion, aneurysm or dissection. Findings discussed by phone with Dr. Patterson at 4:20 PM 11/25/2024 ACT 112: N/A Electronically signed by Stormy Villanueva 11-25-2024 4:24 PM Discharge Plan Visit Data Chief Complaint: TIA Symptoms Stated Complaint: WEAKNESS, TINGLING, VISION, ED Provider: Anson Patterson Discharge Problem: TIA (transient ischemic attack), Elevated troponin Patient Disposition: Admitted As Inpatient Discharge Instructions Interventions: ED Discharge Assessment Last Done: 11/25/24 18:20
[2024-11-25 16:02] LABS: iSTAT Hemoglobin 14.6 g/dl (14.0-18.0); iSTAT Ionized Calcium 1.19 mmol/l (1.12-1.32); iSTAT Potassium 4.5 mmol/L (3.3-5.0)
--- NOTE | 2024-11-25 16:25 | CT Scan Report ---
EXAM: CT Angiography Head and Neck With Intravenous Contrast INDICATION: Blurred vision TECHNIQUE: [place] [facility] [place]/head and neck CT angiography protocol performed with intravenous contrast. Sagittal and coronal reformatted images were created and reviewed. This CT exam was performed using one or more of the following dose reduction techniques: automated exposure control, adjustment of the mA and/or kV according to patient size, and/or use of iterative reconstruction technique. MIP reconstructed images were created and reviewed. CONTRAST: 119 cc of Optiray 320 was administered intravenously. COMPARISON: None. FINDINGS: HEAD: Right anterior cerebral artery: No abnormality noted. No occlusion or significant stenosis. Anterior communicating artery is present. No aneurysm. Right middle cerebral artery: No abnormality noted. No occlusion or significant stenosis. No aneurysm. Right posterior cerebral artery: No abnormality noted. No occlusion or significant stenosis. No aneurysm. Right intracranial internal carotid artery: There is moderate atherosclerotic calcification without stenosis, occlusion, aneurysm or dissection. Right intracranial vertebral artery: There is multifocal calcific plaque. There is distal stenosis of up to 75%. No aneurysm, dissection or occlusion. Left anterior cerebral artery: No abnormality noted. No occlusion or significant stenosis. No aneurysm. Left middle cerebral artery: No abnormality noted. No occlusion or significant stenosis. No aneurysm. Left posterior cerebral artery: No abnormality noted. No occlusion or significant stenosis. No aneurysm. Left intracranial internal carotid artery: There is moderate atherosclerotic calcification without stenosis occlusion, aneurysm or dissection. Left intracranial vertebral artery: There is focal distal calcific plaque iwith less than 20% stenosis. No aneurysm, dissection or occlusion. Basilar artery: No abnormality noted. No occlusion or significant stenosis. No aneurysm. Other vasculature: Patent dural venous sinuses. No vascular malformation. NECK: Right common carotid artery: No abnormality noted. No significant stenosis. No dissection or occlusion. Right extracranial internal carotid artery: There is moderate calcific plaque cervical proximal internal carotid bulb with approximate 60% stenosis. No aneurysm, dissection or occlusion. Right external carotid artery: No abnormality noted. No occlusion. Right extracranial vertebral artery: No abnormality noted. No significant stenosis. No dissection or occlusion. Left common carotid artery: No abnormality noted. No significant stenosis. No dissection or occlusion. Left extracranial internal carotid artery: There is moderate proximal calcific plaque with up to a 80% proximal stenosis. No aneurysm, dissection or occlusion. Left external carotid artery: No abnormality noted. No occlusion. Left extracranial vertebral artery: Small focal distal calcific plaque. No aneurysm, dissection, stenosis or occlusion. Lung apices: No significant abnormality noted. HEAD and NECK: Bones/joints: No significant abnormality. Soft tissues: No abnormality noted. CAROTID STENOSIS REFERENCE USING NASCET CRITERIA: % ICA stenosis = (1 - narrowest ICA diameter/diameter of distal cervical ICA) x 100. Mild - <50% stenosis. Moderate - 50-69% stenosis. Severe - 70-94% stenosis. Near occlusion - 95-99% stenosis. Occluded - 100% stenosis. IMPRESSION: 1. Bilateral cervical external/internal carotid arterial stenosis of about 60% on the right and 80% on the left. 2. 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 3. No large vessel occlusion, aneurysm or dissection. Findings discussed by phone with Dr. Patterson at 4:20 PM 11/25/2024 ACT 112: N/A Electronically signed by Stormy Villanueva 11-25-2024 4:24 PM
--- NOTE | 2024-11-25 16:25 | CT Scan Report ---
EXAM: CT Head Without Intravenous Contrast INDICATION: Blurry vision. TECHNIQUE: Axial computed tomography images of the head/brain without intravenous contrast. Sagittal and/or coronal reformats are provided. Sagittal and coronal reformatted images were created and reviewed. This CT exam was performed using one or more of the following dose reduction techniques: automated exposure control, adjustment of the mA and/or kV according to patient size, and/or use of iterative reconstruction technique. COMPARISON: 07/03/2023 FINDINGS: Limitations: None. Brain and extra-axial spaces: There is age appropriate cortical atrophy and chronic ischemic periventricular white matter hypodensity. No acute infarct, hemorrhage or mass noted. Bones/joints: No acute changes. Soft tissues: No significant abnormality noted. Vasculature: There is intracranial atherosclerotic calcification. Sinuses: No layering fluid in the visualized portions of the paranasal sinuses. Mastoid air cells: No mastoid effusion. Orbits: No significant abnormality noted. IMPRESSION: Cerebral atrophy. No acute changes. Findings discussed by phone with Dr. Patterson at 4:20 PM 11/25/2024 ACT 112: N/A Electronically signed by Stormy Villanueva 11-25-2024 4:24 PM
[2024-11-25 16:33] LABS: Hemoglobin 14.5 g/dl (14.0-18.0); Mean Corpuscular Hemoglobin 29.7 pg (25.0-34.0); Mean Corpuscular Hgb Conc 33.7 g/dL (32.0-36.0); Mean Corpuscular Volume 88.1 fL (80.0-100.0); Mean Platelet Volume 9.5 fL (9.4-12.4); Platelet Count 337 K/uL (130-400); RDW Coefficient of Variation 13.5 % (11.5-14.5); RDW Standard Deviation 43.6 fL (36.4-46.3); Red Blood Count 4.88 M/uL (4.70-6.10); White Blood Count 6.66 K/ul (4.8-10.8)
[2024-11-25 16:34] LABS: Basophils # (auto) 0.06 K/uL (0.00-0.20); Basophils % (auto) 0.9 %; Eosinophils # (auto) 0.19 K/uL (0.00-0.50); Eosinophils % (auto) 2.9 %; Immature Granulocytes # (auto) 0.02 K/uL (0.01-0.20); Immature Granulocytes % (auto) 0.3 %; Lymphocytes # (auto) 2.13 K/uL (1.20-3.40); Monocytes # (auto) 0.48 K/uL (0.11-0.59); Monocytes % (auto) 7.2 %; Neutrophils # (auto) 3.78 K/uL (1.40-6.50); Neutrophils % (auto) 56.7 %
[2024-11-25 16:36] LABS: Partial Thromboplastin Ratio 0.9; Partial Thromboplastin Time 23 Seconds (21-31); Prothrombin Time 10.5 Seconds (9.0-12.0)
[2024-11-25] MEDS: SODIUM CHLORIDE 0.9% 500 ML IV SCH (16:56)
--- NOTE | 2024-11-25 17:47 | History & Physical Report ---
Date of Service November 25, 2024 Assessment & Plan (1) Stroke-like episode: (2) Elevated troponin: (3) Chronic diastolic CHF (congestive heart failure): (4) CAD (coronary artery disease): (5) Carotid artery stenosis, asymptomatic: Plan This is a 64-year-old male who has a significant past medical history of CAD status post CABG x 3, history of hemorrhagic CVA, chronic diastolic CHF, HTN, HLD, aortic root dilatation, VERÓNICA noncompliant with BiPAP, morbid obesity and depression with anxiety who presents to ED secondary to feeling off balance and food coming out of his mouth starting today. #Stroke like sx #Known Carotid artery stenosis R 60%, L 80% Hx of hemorrhagic CVA per pt Around 9 a.m. pt reported eating breakfast and food coming out of both sides of mouth, also reports difficulty processing information, occasional blurry vision and off balance He proceeded to then go to the gym where he worked out w/o difficulty He denies any focal sx head CT and head neck CTA w/o acute abnormality except for carotid artery and vertebral artery stenosis Stroke w/u with MRI brain w and w/o, Neurology consult, echo, PT/OT/ST Obtain carotid dopplers Pt needs follow up with AARON Corado of [facility] vascular (last seen in 2022) Continue ASA, Statin for now Pt also on aricept for memory loss from prior CVA #CAD hx of CABG x 3 #Chronic Diastolic CHF #HTN #HLD on ASA, Statin, ranexa, imdur, lasix Pt previously on metoprolol but he stopped on his on a few months ago ---last echo 10/27: The left ventricular cavity size is normal. The LV wall thickness is mildly increased (concentric).The septal motion is abnormal consistent with interventricular conduction delay.The regional left ventricular wall motion is otherwise normal.The qualitative LV ejection fraction is 55-59% (normal).The left ventricular diastolic function is mildly abnormal (grade I).There is no significant valvular disease The proximal ascending thoracic aorta is mildly enlarged. (4.3 cm) daily weight, continue current meds #VERÓNICA non compliant with Cpap #Depression with anxiety: on zoloft, trazodone, wellbutrin follows Psych DVT ppx: SCDS for now FULL CODE PCP: [facility] admit to [facility]U under obs for stroke w/u, suspect able to d/c tomorrow early afternoon if w/u negative with PCP, Neuro and Vascular follow up PT was seen and examined in collaboration with Dr. Mercer, please see addendum I spent a total of 50 minutes coordinating, documenting and providing care for this patient excluding time spent in the performance of separately billed services or time spent by another provider/QHP. History of Present Illness Chief Complaint: Feeling off balance and food coming out of mouth starting today. Primary Care Provider: Mikhail Helton MD This is a 64-year-old male who has a significant past medical history of CAD status post CABG x 3, history of hemorrhagic CVA, chronic diastolic CHF, HTN, HLD, aortic root dilatation, VERÓNICA noncompliant with BiPAP, morbid obesity and depression with anxiety who presents to ED secondary to feeling off balance and food coming out of his mouth starting today. Patient states he was in his normal state of health around 8 AM. He was eating his breakfast at approximately 9 AM whenever he felt fluid coming out of it. He denies any facial droop but feels more fluid was coming out of the left as opposed to the right. He also states that every night he does multiple puzzles on his phone to work his memory. Over the last few days he has had more difficulty with this as he usually is at advance level, but had to do beginner level. He also notes feeling off balance when he closes his eyes. After eating breakfast he went to the gym where he lifted weights including butterflies and curls. He denied any focal weakness exertional chest pain or shortness of breath doing these activities. She reports just feeling, "off." Given his prior history his symptoms had him worried so he presented to the ED. [facility] as he cannot be seen until April and they were unable to accommodate his request. They referred him to the ED. He denies any recent illness, fever, chills, sweats, lightheadedness, dizziness, headache, chest pain, shortness of breath, RUTLEDGE, hemoptysis, nausea, vomiting, diarrhea or changes bowel or urinary habits. Does admit to occasional blurred vision. In ED patient was mildly hypertensive, his CBC and CMP was generally unremarkable. He did have a mildly elevated troponin at 210.6. His EKG was without ischemic change and compared to prior EKG was unchanged. He underwent a head CT and a head and neck CTA. He has known bilateral cervical external/internal carotid artery stenosis of about 60% on the right and 80% on the left also noted is multifocal plaque and stenosis in the right intracranial vertebral artery. This was discussed with ED provider who also communicated with [place] [facility] who recommended carotid Dopplers and follow-up as an outpatient. Allergies Allergy/AdvReac Type Severity Reaction Status Date / Time adhesive Allergy Mild Rash Verified 11/25/24 16:11 butalbital [From Fioricet] AdvReac Intermediate NAUSEA/VOMI Verified 11/25/24 16:11 TING caffeine [From Fioricet] AdvReac Intermediate NAUSEA/VOMI Verified 11/25/24 16:11 TING terazosin AdvReac Intermediate Dizziness Verified 11/25/24 16:11 Poison Jo-Ann Extract/Poison Allergy Mild Rash Uncoded 11/25/24 16:11 [place] Extra Home Medications Medication Instructions Recorded Confirmed Type furosemide 80 mg tablet (Lasix) 80 mg PO QAM 08/02/20 11/25/24 History carboxymethylcellulose sodium 0.5 1 drp OPB DIRECTED PRN Dry Eyes 04/14/21 11/25/24 History % eye drops (Refresh Tears) cyclobenzaprine 10 mg tablet 10 mg PO DAILY MUSCLE SPASMS 11/03/21 11/25/24 History nitroglycerin 0.4 mg sublingual 0.4 mg sublingual ONCE PRN chest 11/03/21 11/25/24 Rx tablet pain #14 tabs sertraline 100 mg tablet 200 mg PO QAM 11/03/21 11/25/24 History artificial tears with lanolin eye 1 applic OPL HS 05/03/23 11/25/24 History ointment donepezil 10 mg tablet 10 mg PO DAILY 05/03/23 11/25/24 History omeprazole 40 mg capsule,delayed 40 mg PO BID #180 caps 05/21/23 11/25/24 Rx release polyethylene glycol 3350 17 17 g PO DAILY #510 grams 05/21/23 11/25/24 Rx gram/dose oral powder (Miralax) famotidine 20 mg tablet 20 mg PO DAILY #30 tabs 05/31/23 11/25/24 Rx acetaminophen 500 mg tablet 6,000 - 10,000 mg PO DAILY PRN Pain 07/27/24 11/25/24 History (Tylenol Extra Strength) aspirin 81 mg tablet,delayed 81 mg PO QAM 07/27/24 11/25/24 History release (Ayaka Low Dose Aspirin) atorvastatin 80 mg tablet 80 mg PO DAILY 07/27/24 11/25/24 History bupropion HCl 150 mg tablet,12 hr 150 mg PO BID 07/27/24 11/25/24 History sustained-release cyanocobalamin (vitamin B-12) 2,000 mcg PO DAILY 07/27/24 11/25/24 History 1,000 mcg tablet (Vitamin B-12) folic acid 1 mg tablet 1 mg PO DAILY 07/27/24 11/25/24 History isosorbide mononitrate 120 mg 120 mg PO DAILY 07/27/24 11/25/24 History tablet,extended release 24 hr potassium chloride 20 mEq 20 meq PO DAILY 07/27/24 11/25/24 History tablet,extended release(part/cryst) ranolazine 500 mg tablet,extended 500 mg PO BID 07/27/24 11/25/24 History release,12 hr trazodone 50 mg tablet 400 mg PO QPM 07/27/24 11/25/24 History semaglutide (weight loss) 1.7 1.7 mg subcut WK 11/25/24 11/25/24 History mg/0.75 mL subcutaneous pen injector (Wegovy) Past Med/Surg History Problem List (Updated 11/25/24 @ 17:40 by Lisa To PA-C) Carotid artery stenosis, asymptomatic CAD (coronary artery disease) Elevated troponin Stroke-like episode 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 Multiple closed fractures of metatarsal bone of left foot Epigastric abdominal pain PTSD (post-traumatic stress disorder) Seizure-like activity Angina of effort Chest pain (Acute) Chronic diastolic CHF (congestive heart failure) Atypical chest pain (Acute) Fatigue (Acute) Anemia (Acute) Complex sleep apnea syndrome VERÓNICA (obstructive sleep apnea) History of melena Encounter for pre-operative examination Hypertension (Chronic) Irritable bowel syndrome (Chronic) HLD (hyperlipidemia) (Chronic) Pre-diabetes (Chronic) Chronic pain syndrome (Chronic) Anxiety (Chronic) Depression (Chronic) Morbid obesity with BMI of 45.0-49.9, adult (Chronic) GERD (gastroesophageal reflux disease) (Chronic) Medical History Non-traumatic compression fracture of vertebral column Chronic back pain History of gastric ulcer GERD (gastroesophageal reflux disease) Hearing deficit Anxiety Depression Atrial fibrillation hx of after triple CABG--no longer have Hypertension Hyperlipidemia Myocardial Infarction before 2016 "silent heart attack" On home oxygen therapy on 2L bipap at HS Sleep apnea BIPAP--2L at HS Surgical History History of surgery x6 lipoma removal off back History of hernia repair x3 Hx of inguinal hernia repair History of colonoscopy History of esophagogastroduodenoscopy (EGD) History of tooth extraction History of wisdom tooth extraction History of tonsillectomy History of cardiac cath 06/2017 @ [facility]--no stent History of sternectomy 04/2018 @ [facility] [facility] "repair of sternum" S/P CABG x 3 04/2017 @ [facility] [facility] Family History Mother Coronary heart disease Father Coronary heart disease Other No family history of adverse response to anesthesia Social History Smoking Status: Never smoker Tobacco Type: Cigarettes Second Hand Exposure: Yes (In [place] around smoke); Do You Dip or Chew Tobacco: No; Hx Alcohol Use: No (none since 04/2018) Hx Substance Use: No Preferred Language: Montserratian Communication Ability: Effective Scallop Binder Required: No Beliefs That Will Affect Care: None Current Living Situation: Spouse and Family Current Living Situation Comment: Lives with and son Feels Safe at Home: Yes Assistive Devices: None Review of Systems Review of Systems: All systems reviewed & are unremarkable except as noted in HPI & below Physical Exam Physical Exam: Constitutional: WD/WN, vitals as above, NAD, sitting up in bed, pleasant, conversing easily Head: Normocephalic, Atraumatic Eyes: PERRL, conjunctivae normal, anicteric sclerae ENMT: external ear and nose normal, oropharynx normal Neck: trachea midline, no thyromegaly normal visual inspection Respiratory: normal respiratory effort, lungs clear to auscultation, no wheeze, rales, rhonchi. Normal insp/exp effort, no accessory muscle use Cardiovascular: RRR, no murmur, no edema Vessels: no JVD or carotid bruit Chest: normal inspection of chest Abdomen: protuberant abd, normal bowel sounds, soft, nontender, no hepatosplenomegaly Musculoskeletal: no cyanosis or clubbing, extremities motor strength 5/5 Skin: no rashes, warm and dry normal turgor Neurologic: PERRL, EOMI, accommodation nl, no face palsy, no dysarthria CN's II-XI intact bilaterally and moves all extremities Psychiatric: A+Ox3, euthymic affect : deferred Results & Data Results & Data Vital Signs (Past 12 Hours) Vital Signs Temp Pulse Pulse Resp BP BP Pulse Ox 11/25/24 17:01 73 22 163/96 H 97 11/25/24 16:58 74 22 167/106 H 97 11/25/24 16:47 72 20 152/95 H 95 11/25/24 16:35 74 11/25/24 16:16 74 24 158/88 H 95 11/25/24 15:35 37.1 C 93 H 18 177/102 H 95 O2 Del Method 11/25/24 17:01 Room Air 11/25/24 16:58 Room Air 11/25/24 16:47 Room Air 11/25/24 16:35 11/25/24 16:16 Room Air 11/25/24 15:35 Room Air Laboratory Results I have independently reviewed and interpreted patient's admitting labs including CBC, CMP, PTT, PT/INR, mag and troponin. Diagnostic Findings Head CT 11/25/24 15:42 EXAM: CT Head Without Intravenous Contrast INDICATION: Blurry vision. TECHNIQUE: Axial computed tomography images of the head/brain without intravenous contrast. Sagittal and/or coronal reformats are provided. Sagittal and coronal reformatted images were created and reviewed. This CT exam was performed using one or more of the following dose reduction techniques: automated exposure control, adjustment of the mA and/or kV according to patient size, and/or use of iterative reconstruction technique. COMPARISON: 07/03/2023 FINDINGS: Limitations: None. Brain and extra-axial spaces: There is age appropriate cortical atrophy and chronic ischemic periventricular white matter hypodensity. No acute infarct, hemorrhage or mass noted. Bones/joints: No acute changes. Soft tissues: No significant abnormality noted. Vasculature: There is intracranial atherosclerotic calcification. Sinuses: No layering fluid in the visualized portions of the paranasal sinuses. Mastoid air cells: No mastoid effusion. Orbits: No significant abnormality noted. IMPRESSION: Cerebral atrophy. No acute changes. Findings discussed by phone with Dr. Patterson at 4:20 PM 11/25/2024 ACT 112: N/A Electronically signed by Stormy Villanueva 11-25-2024 4:24 PM Head CTA 11/25/24 15:42 EXAM: CT Angiography Head and Neck With Intravenous Contrast INDICATION: Blurred vision TECHNIQUE: [place]/head and neck CT angiography protocol performed with intravenous contrast. Sagittal and coronal reformatted images were created and reviewed. This CT exam was performed using one or more of the following dose reduction techniques: automated exposure control, adjustment of the mA and/or kV according to patient size, and/or use of iterative reconstruction technique. MIP reconstructed images were created and reviewed. CONTRAST: 119 cc of Optiray 320 was administered intravenously. COMPARISON: None. FINDINGS: HEAD: Right anterior cerebral artery: No abnormality noted. No occlusion or significant stenosis. Anterior communicating artery is present. No aneurysm. Right middle cerebral artery: No abnormality noted. No occlusion or significant stenosis. No aneurysm. Right posterior cerebral artery: No abnormality noted. No occlusion or significant stenosis. No aneurysm. Right intracranial internal carotid artery: There is moderate atherosclerotic calcification without stenosis, occlusion, aneurysm or dissection. Right intracranial vertebral artery: There is multifocal calcific plaque. There is distal stenosis of up to 75%. No aneurysm, dissection or occlusion. Left anterior cerebral artery: No abnormality noted. No occlusion or significant stenosis. No aneurysm. Left middle cerebral artery: No abnormality noted. No occlusion or significant stenosis. No aneurysm. Left posterior cerebral artery: No abnormality noted. No occlusion or significant stenosis. No aneurysm. Left intracranial internal carotid artery: There is moderate atherosclerotic calcification without stenosis occlusion, aneurysm or dissection. Left intracranial vertebral artery: There is focal distal calcific plaque iwith less than 20% stenosis. No aneurysm, dissection or occlusion. Basilar artery: No abnormality noted. No occlusion or significant stenosis. No aneurysm. Other vasculature: Patent dural venous sinuses. No vascular malformation. NECK: Right common carotid artery: No abnormality noted. No significant stenosis. No dissection or occlusion. Right extracranial internal carotid artery: There is moderate calcific plaque cervical proximal internal carotid bulb with approximate 60% stenosis. No aneurysm, dissection or occlusion. Right external carotid artery: No abnormality noted. No occlusion. Right extracranial vertebral artery: No abnormality noted. No significant stenosis. No dissection or occlusion. Left common carotid artery: No abnormality noted. No significant stenosis. No dissection or occlusion. Left extracranial internal carotid artery: There is moderate proximal calcific plaque with up to a 80% proximal stenosis. No aneurysm, dissection or occlusion. Left external carotid artery: No abnormality noted. No occlusion. Left extracranial vertebral artery: Small focal distal calcific plaque. No aneurysm, dissection, stenosis or occlusion. Lung apices: No significant abnormality noted. HEAD and NECK: Bones/joints: No significant abnormality. Soft tissues: No abnormality noted. CAROTID STENOSIS REFERENCE USING NASCET CRITERIA: % ICA stenosis = (1 - narrowest ICA diameter/diameter of distal cervical ICA) x 100. Mild - <50% stenosis. Moderate - 50-69% stenosis. Severe - 70-94% stenosis. Near occlusion - 95-99% stenosis. Occluded - 100% stenosis. IMPRESSION: 1. Bilateral cervical external/internal carotid arterial stenosis of about 60% on the right and 80% on the left. 2. 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 3. No large vessel occlusion, aneurysm or dissection. Findings discussed by phone with Dr. Patterson at 4:20 PM 11/25/2024 ACT 112: N/A Electronically signed by Stormy Villanueva 11-25-2024 4:24 PM Neck CTA 11/25/24 15:42 EXAM: CT Angiography Head and Neck With Intravenous Contrast INDICATION: Blurred vision TECHNIQUE: [place]/head and neck CT angiography protocol performed with intravenous contrast. Sagittal and coronal reformatted images were created and reviewed. This CT exam was performed using one or more of the following dose reduction techniques: automated exposure control, adjustment of the mA and/or kV according to patient size, and/or use of iterative reconstruction technique. MIP reconstructed images were created and reviewed. CONTRAST: 119 cc of Optiray 320 was administered intravenously. COMPARISON: None. FINDINGS: HEAD: Right anterior cerebral artery: No abnormality noted. No occlusion or significant stenosis. Anterior communicating artery is present. No aneurysm. Right middle cerebral artery: No abnormality noted. No occlusion or significant stenosis. No aneurysm. Right posterior cerebral artery: No abnormality noted. No occlusion or significant stenosis. No aneurysm. Right intracranial internal carotid artery: There is moderate atherosclerotic calcification without stenosis, occlusion, aneurysm or dissection. Right intracranial vertebral artery: There is multifocal calcific plaque. There is distal stenosis of up to 75%. No aneurysm, dissection or occlusion. Left anterior cerebral artery: No abnormality noted. No occlusion or significant stenosis. No aneurysm. Left middle cerebral artery: No abnormality noted. No occlusion or significant stenosis. No aneurysm. Left posterior cerebral artery: No abnormality noted. No occlusion or significant stenosis. No aneurysm. Left intracranial internal carotid artery: There is moderate atherosclerotic calcification without stenosis occlusion, aneurysm or dissection. Left intracranial vertebral artery: There is focal distal calcific plaque iwith less than 20% stenosis. No aneurysm, dissection or occlusion. Basilar artery: No abnormality noted. No occlusion or significant stenosis. No aneurysm. Other vasculature: Patent dural venous sinuses. No vascular malformation. NECK: Right common carotid artery: No abnormality noted. No significant stenosis. No dissection or occlusion. Right extracranial internal carotid artery: There is moderate calcific plaque cervical proximal internal carotid bulb with approximate 60% stenosis. No aneurysm, dissection or occlusion. Right external carotid artery: No abnormality noted. No occlusion. Right extracranial vertebral artery: No abnormality noted. No significant stenosis. No dissection or occlusion. Left common carotid artery: No abnormality noted. No significant stenosis. No dissection or occlusion. Left extracranial internal carotid artery: There is moderate proximal calcific plaque with up to a 80% proximal stenosis. No aneurysm, dissection or occlusion. Left external carotid artery: No abnormality noted. No occlusion. Left extracranial vertebral artery: Small focal distal calcific plaque. No aneurysm, dissection, stenosis or occlusion. Lung apices: No significant abnormality noted. HEAD and NECK: Bones/joints: No significant abnormality. Soft tissues: No abnormality noted. CAROTID STENOSIS REFERENCE USING NASCET CRITERIA: % ICA stenosis = (1 - narrowest ICA diameter/diameter of distal cervical ICA) x 100. Mild - <50% stenosis. Moderate - 50-69% stenosis. Severe - 70-94% stenosis. Near occlusion - 95-99% stenosis. Occluded - 100% stenosis. IMPRESSION: 1. Bilateral cervical external/internal carotid arterial stenosis of about 60% on the right and 80% on the left. 2. 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 3. No large vessel occlusion, aneurysm or dissection. Findings discussed by phone with Dr. Patterson at 4:20 PM 11/25/2024 ACT 112: N/A Electronically signed by Stormy Villanueva 11-25-2024 4:24 PM Medications Administered Medication List Sodium Chloride (Nss) 500 mls @ 100 mls/hr IV .Q5H MERVIN Stop: 11/25/24 21:44 Last Admin: 11/25/24 16:56 Dose: 100 mls/hr Documented By: HMS Discontinued Medications Ioversol (Optiray 320 125ml) 119 ml IV ONCE ONE Stop: 11/25/24 15:52 Last Admin: 11/25/24 15:52 Dose: 119 ml Documented By: EAB ECG Additional Comments: I have independently reviewed and interpreted patient's admitting EKG which revealed: NSR 1st degree AVB, RBBB, qtc 492ms, no ischemic st or t wave change, compared to ecg 06/2024 unchanged COVID-19 Results Results COVID-19 Adm Lab Results: RBC 4.88 M/uL (4.70-6.10) 11/25/24 WBC 6.66 K/ul (4.8-10.8) 11/25/24 Hgb 14.5 g/dl (14.0-18.0) 11/25/24 Hct 43.0 % (42.0-52.0) 11/25/24 Plt Count 337 K/uL (130-400) 11/25/24 Neutrophils (%) (Auto) 56.7 % 11/25/24 Lymphocytes (%) (Auto) 32.0 % 11/25/24 Monocytes # (Auto) 0.48 K/uL (0.11-0.59) 11/25/24 Eosinophils # (Auto) 0.19 K/uL (0.00-0.50) 11/25/24 Immature Granulocyte % (Auto) 0.3 % 11/25/24 Neutrophils # (Auto) 3.78 K/uL (1.40-6.50) 11/25/24 Lymphocytes # (Auto) 2.13 K/uL (1.20-3.40) 11/25/24 Monocytes # (Auto) 0.48 K/uL (0.11-0.59) 11/25/24 Eosinophils # (Auto) 0.19 K/uL (0.00-0.50) 11/25/24 Basophils # (Auto) 0.06 K/uL (0.00-0.20) 11/25/24 Immature Granulocyte # (Auto) 0.02 K/uL (0.01-0.20) 5 PTT 23 Seconds (21-31) 11/25/24 INR 1.0 (0.9-1.1) 11/25/24 Code Status & VTE Plan Code Status FULL CODE VTE Prophylaxis Plan VTE Prophylaxis will be ordered: Yes Supervising Physician Co-Signing Physician Notes I have seen and discussed the case with the collaborating advanced practitioner. I agree with the above H&P. I have reviewed and confirmed the patients medical history, the findings on physical examination, and the patients diagnosis and treatment plan with Yousuf BARILLAS and agree with the information documented. In short, Mr. Gutierrez is a 64 yo gentleman admitted with stroke like symptoms. Imaging with known carotid stenosis. No focal neurologic deficit on exam, CNII- XII intact. Discussion with [facility] vascular recommending doppler and follow up op. Will continue stroke eval with MRI, PT/OT, and neuro consult. Plan as above I spent a total of 15 minutes coordinating, documenting, and providing care for this patient excluding time spent in the performance of separately billed services. All of the aforementioned completed outside of collaborating with the assigned advanced practitioner for a full treatment plan. I have reviewed the advanced practitioner's documentation, and I agree with, and take responsibility for the plan of care
[2024-11-25] MEDS ORDERED: POLYETHYLENE (MIRALAX) 17 GM PACK PO PRN (18:42)
[2024-11-25] MEDS ORDERED: ONDANSETRON INJ 2 MG/ML 2 ML VIAL IV PRN (18:42)
[2024-11-25] MEDS ORDERED: PHARMACIST DISCHARGE MED REC CONSULT PRN (18:42)
[2024-11-25] MEDS ORDERED: ARTIFICIAL TEARS OPB PRN (18:49)
[2024-11-25] MEDS: traZODone HCL 100 MG TAB PO SCH (19:19)
[2024-11-25] MEDS: ACETAMINOPHEN 325 MG TAB PO PRN (19:23)
[2024-11-25 20:11] LABS: Albumin Globulin Ratio 1.8 (0.9-2); Albumin Level 4.2 gm/dl (3.4-5.0); BUN Creatinine Ratio 7.8 (10-20); Bilirubin,Total 0.4 mg/dl (0.2-1.0); Calcium 9.4 mg/dl (8.6-10.3); Creatinine Clr Calc Pharmacy 110.4 ml/min; Globulin 2.3 gm/dl (2.5-4.0); Magnesium 2.1 mg/dl (1.7-2.4); Potassium 3.7 mmol/L (3.5-5.1); Total Protein 6.5 gm/dl (6.0-8.3)
[2024-11-25] MEDS: GADOBUTROL 65ML VIAL IV ONE (20:13)
[2024-11-25 20:30] LABS: Troponin I High Sensitivity 209.5 pg/ml (0-20)
[2024-11-25] MEDS: ARTIFICIAL TEARS OP OINT 3.5 GM TUBE OPL SCH (21:00)
[2024-11-25] MEDS: PANTOprazole 40 MG TAB PO SCH (21:00)
[2024-11-25] MEDS: RANOLAZINE 500 MG ER TAB PO SCH (21:00)
[2024-11-25] MEDS: buPROPion SR 150 MG TABCR PO SCH (21:01)
[2024-11-25 21:18] LABS: Appearance Urine Clear (Clear); Bilirubin Urine Negative (Negative); Blood Urine Negative (Negative); Color Urine Yellow; Glucose Urine UA Negative (Negative); Ketones Urine Negative (Negative); Leukocyte Esterase Urine Negative (Negative); Nitrite Urine Negative (Negative); Protein Urine Negative (Negative); Specific Gravity Urine 1.011 (1.000-1.030); Urobilinogen Urine Negative (Negative); pH Urine 6.5 (4.5-7.5)
--- NOTE | 2024-11-25 21:51 | Magnetic Resonance Report ---
Exam(s): MRI HEAD W/WO Contrast IV Amt: 12mL Gadvist given IV EXAM: MR Head Without and With Intravenous Contrast CLINICAL HISTORY: Reason for exam: stroke like sx, vertigo sx, r/o cva and posterior. TECHNIQUE: Magnetic resonance images of the head/brain without and with intravenous contrast in multiple planes. CONTRAST: Patient received 12mL Gadvist given IV of IV contrast COMPARISON: No relevant prior studies available. FINDINGS: Brain: Unremarkable. No mass. No hemorrhage. No acute infarct. Ventricles: Unremarkable. No ventriculomegaly. Bones/joints: Unremarkable. No acute fracture. Sinuses: Unremarkable as visualized. No acute sinusitis. Mastoid air cells: Unremarkable as visualized. No mastoid effusion. Orbits: Unremarkable as visualized. IMPRESSION: Normal head/brain MRI. Electronically signed by: Wesley Triana MD 11/25/24 21:50 PM
--- NOTE | 2024-11-25 22:09 | Ultrasound Report ---
Exam(s): US CAROTID EXAM: US Duplex Bilateral Extracranial Arteries CLINICAL HISTORY: Reason for exam: Carotid artery stenosis. TECHNIQUE: Real-time duplex ultrasound scan of the extracranial arteries integrating B-mode two-dimensional vascular structure, Doppler spectral analysis and color flow Doppler imaging. COMPARISON: No relevant prior studies available. FINDINGS: Right common carotid artery: Moderate atherosclerotic calcification seen in the right common carotid artery and right carotid bulb. No occlusion or hemodynamically significant stenosis on color flow and spectral Doppler imaging. Right internal carotid artery: 128 cm/s Right external carotid artery: Unremarkable. No occlusion or significant stenosis on color flow and spectral Doppler imaging. Right vertebral artery: Unremarkable. Antegrade flow. Right ICA/CCA ratio: Right ICA/CCA peak systolic velocity ratio is 1.9. Left common carotid artery: Moderate atherosclerotic calcifications are seen in the left common carotid artery and left carotid bulb. No occlusion or hemodynamically significant stenosis on color flow and spectral Doppler imaging. Left internal carotid artery: 67 cm/s Left external carotid artery: Unremarkable. No occlusion or significant stenosis on color flow and spectral Doppler imaging. Left vertebral artery: Unremarkable. Antegrade flow. Left ICA/CCA ratio: Left ICA/CCA peak systolic velocity ratio is 0.9. Lymph nodes: Unremarkable. No lymphadenopathy. CAROTID STENOSIS REFERENCE USING IAC CRITERIA: Mild - <50% stenosis. ICA PSV is less than 180 cm/s and plaque or intimal thickening is visible. Moderate - 50-69% stenosis. ICA PSV is 180 to 230 cm/s and plaque is visible. Severe - 70-94% stenosis. ICA PSV is more than 230 cm/s and visible plaque with lumen narrowing is seen. Near occlusion - 95-99% stenosis. ICA PSV is variable and significant plaque with luminal narrowing is seen. Occluded - 100% stenosis. No flow identified. IMPRESSION: No evidence of hemodynamically significant carotid stenosis. Approximately 50% right carotid stenosis. Electronically signed by: Wesley Triana MD 11/25/24 22:08 PM
[2024-11-25 23:46] LABS: Influenza A PCR (Fusion) Negative (Negative); Influenza B PCR (Fusion) Negative (Negative); RSV PCR (Fusion) Negative (Negative)
[2024-11-26] MEDS: LORazepam 0.5 MG TAB PO STA (03:16)
[2024-11-26 06:46] LABS: Basophils # (auto) 0.06 K/uL (0.00-0.20); Basophils % (auto) 0.7 %; Eosinophils # (auto) 0.21 K/uL (0.00-0.50); Eosinophils % (auto) 2.6 %; Hematocrit (blood only) 40.6 % (42.0-52.0); Hemoglobin 13.9 g/dl (14.0-18.0); Immature Granulocytes # (auto) 0.03 K/uL (0.01-0.20); Immature Granulocytes % (auto) 0.4 %; Lymphocytes % (auto) 29.7 %; Mean Corpuscular Hgb Conc 34.2 g/dL (32.0-36.0); Mean Corpuscular Volume 87.7 fL (80.0-100.0); Mean Platelet Volume 8.9 fL (9.4-12.4); Monocytes # (auto) 0.68 K/uL (0.11-0.59); Monocytes % (auto) 8.4 %; Neutrophils # (auto) 4.71 K/uL (1.40-6.50); Neutrophils % (auto) 58.2 %; Platelet Count 307 K/uL (130-400); RDW Coefficient of Variation 13.7 % (11.5-14.5); RDW Standard Deviation 43.7 fL (36.4-46.3); Red Blood Count 4.63 M/uL (4.70-6.10); White Blood Count 8.09 K/ul (4.8-10.8)
[2024-11-26 07:07] LABS: BUN Creatinine Ratio 7.6 (10-20); Calcium 9.5 mg/dl (8.6-10.3); Chol HDL Ratio 3.5 (0-5); Creatinine Clr Calc Pharmacy 94.6 ml/min
[2024-11-26 07:22] VITALS: TEMP 98.2
[2024-11-26 07:35] LABS: Estimated Average Glucose 114 mg/dl; Hemoglobin A1C 5.6 % (4.5-5.6)
[2024-11-26] MEDS: ASPIRIN 81 MG ECTAB PO SCH (07:36)
[2024-11-26] MEDS: SERTRALINE HCL 100 MG TABLET PO SCH (07:37)
[2024-11-26] MEDS: ISOSORBIDE MONO EXTENDED REL 60 MG TABCR PO SCH (07:37)
[2024-11-26] MEDS: FUROSEMIDE 80 MG TAB PO SCH (07:37)
[2024-11-26] MEDS: CYANOCOBALAMIN (B-12) 500 MCG TABLET PO SCH (07:38)
[2024-11-26] MEDS: ATORVASTATIN 40 MG TAB PO SCH (07:38)
[2024-11-26] MEDS: DONEPEZIL HCL 10 MG TAB PO SCH (07:38)
[2024-11-26] MEDS: POLYETHYLENE (MIRALAX) 17 GM PACK PO SCH (07:39)
[2024-11-26] MEDS: FOLIC ACID 1 MG TAB PO SCH (07:39)
[2024-11-26] MEDS: FAMOTIDINE 20 MG TAB PO SCH (08:12)
[2024-11-26] MEDS: POTASSIUM CHLORIDE CRTAB 20 MEQ TABCR PO SCH (08:12)
[2024-11-26 11:09] VITALS: PULSE 91; RESP 19; O2SAT 94
--- NOTE | 2024-11-26 12:03 | Neurology Consultation ---
Date of Consultation November 26, 2024 Assessment & Plan (1) Carotid artery stenosis, asymptomatic: Henri Gutierrez is a 64 yo M presenting with transient dizziness in the setting of likely moderate carotid stenosis. There is a discrepancy between anatomic imaging showing up to 80% stenosis and CUS showing <50% stenosis. Likely moderate and overcalled due to heavy calcification on the CTA. Agree with non-urgent outpatient vascular surgery follow-up. I do not suspect the presenting symptoms were related to the carotid stenosis as there was no focality. Recommend he remain on aspirin and statin with best medical management for risk factor modification. -- Vascular surgery follow-up outpatient for moderate, asymptomatic carotid stenosis -- Continue aspirin 81mg and lipitor 80mg daily. -- Okay for discharge from our perspective Telehealth Consultation Telehealth Information Telehealth Information: I performed this visit using a real-time telehealth connection between my location and the patients location ([facility]). After connecting through interactive tele-video, patient was identified by name and date of and/or wristband check.Patient (or authorized healthcare rep resentative) was informed that this was a telemedicine visit and it was being conducted confidentially over secure lines. My office door was closed and no one else was present in the room with me.Patient (or authorized healthcare marketing development representative) provided consent to proceed with the visit, expressed an understanding of privacy and security of the telemedicine visit, and gave permission to have a hospital marketing development representative in the room in order to assist with the visit and to conduct portions of the visit, as needed. I informed the patient (or authorized healthcare marketing development representative) that I reviewed their record and presented the opportunity for them to ask any questions regarding the visit today. The patient agreed to participate. History of Present Illness Reason for Consultation: Dizziness Requesting Physician: Dr. Andersen Attending Physician: Shanthi Andersen MD History of Present Illness Henri Gutierrez is a 64 yo M presenting with an episode of dizziness and difficulty chewing yesterday. He reports feeling imbalanced briefly and then was unable to chew his food at breakfast. He was able to lift weights in the gym afterward without any difficulty. [facility] and [facility]. He otherwise feels back to baseline currently. He has a history of a possible TIA with similar symptoms in the past and saw vascular surgery for mild-mod carotid stenosis in 2021. He reports taking aspirin daily. Allergies Allergy/AdvReac Type Severity Reaction Status Date / Time adhesive Allergy Mild Rash Verified 11/25/24 16:11 butalbital [From Fioricet] AdvReac Intermediate NAUSEA/VOMI Verified 11/25/24 16:11 TING caffeine [From Fioricet] AdvReac Intermediate NAUSEA/VOMI Verified 11/25/24 16:11 TING terazosin AdvReac Intermediate Dizziness Verified 11/25/24 16:11 Poison [place] Extract/Poison Allergy Mild Rash Uncoded 11/25/24 16:11 [place] Extra Home Medications Medication Instructions Recorded Confirmed Type furosemide 80 mg tablet (Lasix) 80 mg PO QAM 08/02/20 11/25/24 History carboxymethylcellulose sodium 0.5 1 drp OPB DIRECTED PRN Dry Eyes 04/14/21 11/25/24 History % eye drops (Refresh Tears) cyclobenzaprine 10 mg tablet 10 mg PO DAILY MUSCLE SPASMS 11/03/21 11/25/24 History nitroglycerin 0.4 mg sublingual 0.4 mg sublingual ONCE PRN chest 11/03/21 11/25/24 Rx tablet pain #14 tabs sertraline 100 mg tablet 200 mg PO QAM 11/03/21 11/25/24 History artificial tears with lanolin eye 1 applic OPL HS 05/03/23 11/25/24 History ointment donepezil 10 mg tablet 10 mg PO DAILY 05/03/23 11/25/24 History omeprazole 40 mg capsule,delayed 40 mg PO BID #180 caps 05/21/23 11/25/24 Rx release polyethylene glycol 3350 17 17 g PO DAILY #510 grams 05/21/23 11/25/24 Rx gram/dose oral powder (Miralax) famotidine 20 mg tablet 20 mg PO DAILY #30 tabs 05/31/23 11/25/24 Rx acetaminophen 500 mg tablet 6,000 - 10,000 mg PO DAILY PRN Pain 07/27/24 11/25/24 History (Tylenol Extra Strength) aspirin 81 mg tablet,delayed 81 mg PO QAM 07/27/24 11/25/24 History release ([place] Low Dose Aspirin) atorvastatin 80 mg tablet 80 mg PO DAILY 07/27/24 11/25/24 History bupropion HCl 150 mg tablet,12 hr 150 mg PO BID 07/27/24 11/25/24 History sustained-release cyanocobalamin (vitamin B-12) 2,000 mcg PO DAILY 07/27/24 11/25/24 History 1,000 mcg tablet (Vitamin B-12) folic acid 1 mg tablet 1 mg PO DAILY 07/27/24 11/25/24 History isosorbide mononitrate 120 mg 120 mg PO DAILY 07/27/24 11/25/24 History tablet,extended release 24 hr potassium chloride 20 mEq 20 meq PO DAILY 07/27/24 11/25/24 History tablet,extended release(part/cryst) ranolazine 500 mg tablet,extended 500 mg PO BID 07/27/24 11/25/24 History release,12 hr trazodone 50 mg tablet 400 mg PO QPM 07/27/24 11/25/24 History semaglutide (weight loss) 1.7 1.7 mg subcut WK 11/25/24 11/25/24 History mg/0.75 mL subcutaneous pen injector ([employer]commiladys) Patient History Medical History Non-traumatic compression fracture of vertebral column Chronic back pain History of gastric ulcer GERD (gastroesophageal reflux disease) Hearing deficit Anxiety Depression Atrial fibrillation hx of after triple CABG--no longer have Hypertension Hyperlipidemia Myocardial Infarction before 2017 "silent heart attack" On home oxygen therapy on 2L bipap at HS Sleep apnea BIPAP--2L at HS Surgical History History of surgery x6 lipoma removal off back History of hernia repair x3 Hx of inguinal hernia repair History of colonoscopy History of esophagogastroduodenoscopy (EGD) History of tooth extraction History of wisdom tooth extraction History of tonsillectomy History of cardiac cath 06/2017 @ [facility]--no stent History of sternectomy 04[place] [facility] [place]" S/P CABG x 3 04/2017 [place] [facility] [place] Family History Mother Coronary heart disease Father Coronary heart disease Other No family history of adverse response to anesthesia Social History Smoking Status: Former smoker Tobacco Type: Cigarettes Second Hand Exposure: Yes (In [place] around smoke); Do You Dip or Chew Tobacco: No; Hx Alcohol Use: No Hx Substance Use: No Preferred Language: Kyrgyz Communication Ability: Effective [employer] Operator Required: No Beliefs That Will Affect Care: None Current Living Situation: Spouse Current Living Situation Comment: Lives with and son Feels Safe at Home: Yes Safety Concerns: Feels Safe At This Time Assistive Devices: Glasses Review of Systems +Dizziness, resolved Physical Exam Neurological Examination: Mental Status: Awake and alert. Oriented to person, place, and time. Fluent. Comprehension intact. Affect appropriate. Cranial Nerves: II: Reads NIHSS cards, pupils 3/3 to 2/2, carlos grossly intact. III/IV/: Versions intact without nystagmus, no gaze preference. V: Facial sensation symmetric to light touch VII: Facial expression symmetric VIII: Hearing intact to voice IX/X: Palate elevates symmetrically XI: Shoulder shrug symmetric XII: Tongue midline Motor: Strength was symmetric and antigravity throughout. Pronator drift was absent. There were no abnormal movements. Coordination: Finger to nose and heel to lira were intact. Reflexes: Unable to assess over telemedicine Results & Data Vital Signs (Past 12 Hours) Vital Signs Temp Pulse Resp BP Pulse Ox O2 Del Method 11/26/24 11:06 36.8 C 91 H 19 128/86 94 Room Air 11/26/24 07:20 36.8 C 68 20 144/88 H 92 Room Air Laboratory Results Abnormal lab results 11/25/24 11/25/24 11/25/24 Range/Units 15:45 15:50 19:37 RBC (4.70-6.10) M/uL Hgb (14.0-18.0) g/dl Hct (42.0-52.0) % MPV (9.4-12.4) fL Mclennan # (Auto) (0.11-0.59) K/uL Carbon Dioxide (21-32) mmol/L BUN/Creatinine Ratio 7.8 L (10-20) Glucose 103 H (70-99(Fasting)) mg/dl POC Glucose (other) 113 H (70-99) mg/dl Troponin I High Sens 210.6 H* 209.5 H* (0-20) pg/ml Globulin 2.3 L (2.5-4.0) gm/dl Triglycerides (0-150) mg/dl VLDL Cholesterol, Calc (0-30) mg/dl 11/26/24 11/26/24 Range/Units 01:24 06:25 RBC 4.63 L (4.70-6.10) M/uL Hgb 13.9 L (14.0-18.0) g/dl Hct 40.6 L (42.0-52.0) % MPV 8.9 L (9.4-12.4) fL Mclennan # (Auto) 0.68 H (0.11-0.59) K/uL Carbon Dioxide 33 H (21-32) mmol/L BUN/Creatinine Ratio 7.6 L (10-20) Glucose (70-99(Fasting)) mg/dl POC Glucose (other) (70-99) mg/dl Troponin I High Sens 200.0 H* 143.7 H* D (0-20) pg/ml Globulin (2.5-4.0) gm/dl Triglycerides 225 H (0-150) mg/dl VLDL Cholesterol, Calc 45 H (0-30) mg/dl Diagnostic Findings Head CT 11/25/24 15:42 EXAM: CT Head Without Intravenous Contrast INDICATION: Blurry vision. TECHNIQUE: Axial computed tomography images of the head/brain without intravenous contrast. Sagittal and/or coronal reformats are provided. Sagittal and coronal reformatted images were created and reviewed. This CT exam was performed using one or more of the following dose reduction techniques: automated exposure control, adjustment of the mA and/or kV according to patient size, and/or use of iterative reconstruction technique. COMPARISON: 07/03/2023 FINDINGS: Limitations: None. Brain and extra-axial spaces: There is age appropriate cortical atrophy and chronic ischemic periventricular white matter hypodensity. No acute infarct, hemorrhage or mass noted. Bones/joints: No acute changes. Soft tissues: No significant abnormality noted. Vasculature: There is intracranial atherosclerotic calcification. Sinuses: No layering fluid in the visualized portions of the paranasal sinuses. Mastoid air cells: No mastoid effusion. Orbits: No significant abnormality noted. IMPRESSION: Cerebral atrophy. No acute changes. Findings discussed by phone with Dr. Patterson at 4:20 PM 11/25/2024 ACT 112: N/A Electronically signed by Stormy Villanueva 11-25-2024 4:24 PM Head CTA 11/25/24 15:42 EXAM: CT Angiography Head and Neck With Intravenous Contrast INDICATION: Blurred vision TECHNIQUE: [place]/head and neck CT angiography protocol performed with intravenous contrast. Sagittal and coronal reformatted images were created and reviewed. This CT exam was performed using one or more of the following dose reduction techniques: automated exposure control, adjustment of the mA and/or kV according to patient size, and/or use of iterative reconstruction technique. MIP reconstructed images were created and reviewed. CONTRAST: 119 cc of Optiray 320 was administered intravenously. COMPARISON: None. FINDINGS: HEAD: Right anterior cerebral artery: No abnormality noted. No occlusion or significant stenosis. Anterior communicating artery is present. No aneurysm. Right middle cerebral artery: No abnormality noted. No occlusion or significant stenosis. No aneurysm. Right posterior cerebral artery: No abnormality noted. No occlusion or significant stenosis. No aneurysm. Right intracranial internal carotid artery: There is moderate atherosclerotic calcification without stenosis, occlusion, aneurysm or dissection. Right intracranial vertebral artery: There is multifocal calcific plaque. There is distal stenosis of up to 75%. No aneurysm, dissection or occlusion. Left anterior cerebral artery: No abnormality noted. No occlusion or significant stenosis. No aneurysm. Left middle cerebral artery: No abnormality noted. No occlusion or significant stenosis. No aneurysm. Left posterior cerebral artery: No abnormality noted. No occlusion or significant stenosis. No aneurysm. Left intracranial internal carotid artery: There is moderate atherosclerotic calcification without stenosis occlusion, aneurysm or dissection. Left intracranial vertebral artery: There is focal distal calcific plaque iwith less than 20% stenosis. No aneurysm, dissection or occlusion. Basilar artery: No abnormality noted. No occlusion or significant stenosis. No aneurysm. Other vasculature: Patent dural venous sinuses. No vascular malformation. NECK: Right common carotid artery: No abnormality noted. No significant stenosis. No dissection or occlusion. Right extracranial internal carotid artery: There is moderate calcific plaque cervical proximal internal carotid bulb with approximate 60% stenosis. No aneurysm, dissection or occlusion. Right external carotid artery: No abnormality noted. No occlusion. Right extracranial vertebral artery: No abnormality noted. No significant stenosis. No dissection or occlusion. Left common carotid artery: No abnormality noted. No significant stenosis. No dissection or occlusion. Left extracranial internal carotid artery: There is moderate proximal calcific plaque with up to a 80% proximal stenosis. No aneurysm, dissection or occlusion. Left external carotid artery: No abnormality noted. No occlusion. Left extracranial vertebral artery: Small focal distal calcific plaque. No aneurysm, dissection, stenosis or occlusion. Lung apices: No significant abnormality noted. HEAD and NECK: Bones/joints: No significant abnormality. Soft tissues: No abnormality noted. CAROTID STENOSIS REFERENCE USING NASCET CRITERIA: % ICA stenosis = (1 - narrowest ICA diameter/diameter of distal cervical ICA) x 100. Mild - <50% stenosis. Moderate - 50-69% stenosis. Severe - 70-94% stenosis. Near occlusion - 95-99% stenosis. Occluded - 100% stenosis. IMPRESSION: 1. Bilateral cervical external/internal carotid arterial stenosis of about 60% on the right and 80% on the left. 2. 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 3. No large vessel occlusion, aneurysm or dissection. Findings discussed by phone with Dr. Patterson at 4:20 PM 11/25/2024 ACT 112: N/A Electronically signed by Stormy Villanueva 11-25-2024 4:24 PM Neck CTA 11/25/24 15:42 EXAM: CT Angiography Head and Neck With Intravenous Contrast INDICATION: Blurred vision TECHNIQUE: [place]/head and neck CT angiography protocol performed with intravenous contrast. Sagittal and coronal reformatted images were created and reviewed. This CT exam was performed using one or more of the following dose reduction techniques: automated exposure control, adjustment of the mA and/or kV according to patient size, and/or use of iterative reconstruction technique. MIP reconstructed images were created and reviewed. CONTRAST: 119 cc of Optiray 320 was administered intravenously. COMPARISON: None. FINDINGS: HEAD: Right anterior cerebral artery: No abnormality noted. No occlusion or significant stenosis. Anterior communicating artery is present. No aneurysm. Right middle cerebral artery: No abnormality noted. No occlusion or significant stenosis. No aneurysm. Right posterior cerebral artery: No abnormality noted. No occlusion or significant stenosis. No aneurysm. Right intracranial internal carotid artery: There is moderate atherosclerotic calcification without stenosis, occlusion, aneurysm or dissection. Right intracranial vertebral artery: There is multifocal calcific plaque. There is distal stenosis of up to 75%. No aneurysm, dissection or occlusion. Left anterior cerebral artery: No abnormality noted. No occlusion or significant stenosis. No aneurysm. Left middle cerebral artery: No abnormality noted. No occlusion or significant stenosis. No aneurysm. Left posterior cerebral artery: No abnormality noted. No occlusion or significant stenosis. No aneurysm. Left intracranial internal carotid artery: There is moderate atherosclerotic calcification without stenosis occlusion, aneurysm or dissection. Left intracranial vertebral artery: There is focal distal calcific plaque iwith less than 20% stenosis. No aneurysm, dissection or occlusion. Basilar artery: No abnormality noted. No occlusion or significant stenosis. No aneurysm. Other vasculature: Patent dural venous sinuses. No vascular malformation. NECK: Right common carotid artery: No abnormality noted. No significant stenosis. No dissection or occlusion. Right extracranial internal carotid artery: There is moderate calcific plaque cervical proximal internal carotid bulb with approximate 60% stenosis. No aneurysm, dissection or occlusion. Right external carotid artery: No abnormality noted. No occlusion. Right extracranial vertebral artery: No abnormality noted. No significant stenosis. No dissection or occlusion. Left common carotid artery: No abnormality noted. No significant stenosis. No dissection or occlusion. Left extracranial internal carotid artery: There is moderate proximal calcific plaque with up to a 80% proximal stenosis. No aneurysm, dissection or occlusion. Left external carotid artery: No abnormality noted. No occlusion. Left extracranial vertebral artery: Small focal distal calcific plaque. No aneurysm, dissection, stenosis or occlusion. Lung apices: No significant abnormality noted. HEAD and NECK: Bones/joints: No significant abnormality. Soft tissues: No abnormality noted. CAROTID STENOSIS REFERENCE USING NASCET CRITERIA: % ICA stenosis = (1 - narrowest ICA diameter/diameter of distal cervical ICA) x 100. Mild - <50% stenosis. Moderate - 50-69% stenosis. Severe - 70-94% stenosis. Near occlusion - 95-99% stenosis. Occluded - 100% stenosis. IMPRESSION: 1. Bilateral cervical external/internal carotid arterial stenosis of about 60% on the right and 80% on the left. 2. 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 3. No large vessel occlusion, aneurysm or dissection. Findings discussed by phone with Dr. Patterson at 4:20 PM 11/25/2024 ACT 112: N/A Electronically signed by Stormy Villanueva 11-25-2024 4:24 PM Brain MRI 11/25/24 16:59 Exam(s): MRI HEAD W/WO Contrast IV Amt: 12mL Gadvist given IV EXAM: MR Head Without and With Intravenous Contrast CLINICAL HISTORY: Reason for exam: stroke like sx, vertigo sx, r/o cva and posterior. TECHNIQUE: Magnetic resonance images of the head/brain without and with intravenous contrast in multiple planes. CONTRAST: Patient received 12mL Gadvist given IV of IV contrast COMPARISON: No relevant prior studies available. FINDINGS: Brain: Unremarkable. No mass. No hemorrhage. No acute infarct. Ventricles: Unremarkable. No ventriculomegaly. Bones/joints: Unremarkable. No acute fracture. Sinuses: Unremarkable as visualized. No acute sinusitis. Mastoid air cells: Unremarkable as visualized. No mastoid effusion. Orbits: Unremarkable as visualized. IMPRESSION: Normal head/brain MRI. Electronically signed by: Wesley Triana MD 11/25/24 21:50 PM Carotid Doppler Study 11/25/24 17:35 Exam(s): US CAROTID EXAM: US Duplex Bilateral Extracranial Arteries CLINICAL HISTORY: Reason for exam: Carotid artery stenosis. TECHNIQUE: Real-time duplex ultrasound scan of the extracranial arteries integrating B-mode two-dimensional vascular structure, Doppler spectral analysis and color flow Doppler imaging. COMPARISON: No relevant prior studies available. FINDINGS: Right common carotid artery: Moderate atherosclerotic calcification seen in the right common carotid artery and right carotid bulb. No occlusion or hemodynamically significant stenosis on color flow and spectral Doppler imaging. Right internal carotid artery: 128 cm/s Right external carotid artery: Unremarkable. No occlusion or significant stenosis on color flow and spectral Doppler imaging. Right vertebral artery: Unremarkable. Antegrade flow. Right ICA/CCA ratio: Right ICA/CCA peak systolic velocity ratio is 1.9. Left common carotid artery: Moderate atherosclerotic calcifications are seen in the left common carotid artery and left carotid bulb. No occlusion or hemodynamically significant stenosis on color flow and spectral Doppler imaging. Left internal carotid artery: 67 cm/s Left external carotid artery: Unremarkable. No occlusion or significant stenosis on color flow and spectral Doppler imaging. Left vertebral artery: Unremarkable. Antegrade flow. Left ICA/CCA ratio: Left ICA/CCA peak systolic velocity ratio is 0.9. Lymph nodes: Unremarkable. No lymphadenopathy. CAROTID STENOSIS REFERENCE USING IAC CRITERIA: Mild - <50% stenosis. ICA PSV is less than 180 cm/s and plaque or intimal thickening is visible. Moderate - 50-69% stenosis. ICA PSV is 180 to 230 cm/s and plaque is visible. Severe - 70-94% stenosis. ICA PSV is more than 230 cm/s and visible plaque with lumen narrowing is seen. Near occlusion - 95-99% stenosis. ICA PSV is variable and significant plaque with luminal narrowing is seen. Occluded - 100% stenosis. No flow identified. IMPRESSION: No evidence of hemodynamically significant carotid stenosis. Approximately 50% right carotid stenosis. Electronically signed by: Wesley Triana MD 11/25/24 22:08 PM
--- NOTE | 2024-11-26 12:04 | Hospitalist Progress Note ---
Date of Service November 26, 2024 Assessment & Plan (1) Stroke-like episode: (2) Elevated troponin: (3) Chronic diastolic CHF (congestive heart failure): (4) CAD (coronary artery disease): (5) Carotid artery stenosis, asymptomatic: Plan This is a 64-year-old male who has a significant past medical history of CAD status post CABG x 3, history of hemorrhagic CVA, chronic diastolic CHF, HTN, HLD, aortic root dilatation, VERÓNICA noncompliant with BiPAP, morbid obesity and depression with anxiety who presents to ED secondary to feeling off balance and food coming out of his mouth starting today. #Stroke like sx #Known Carotid artery stenosis R 60%, L 80% Hx of hemorrhagic CVA per pt Around 9 a.m. pt reported eating breakfast and food coming out of both sides of mouth, also reports difficulty processing information, occasional blurry vision and off balance He proceeded to then go to the gym where he worked out w/o difficulty He denies any focal sx head CT and head neck CTA w/o acute abnormality except for carotid artery and vertebral artery stenosis Stroke w/u with MRI brain w and w/o, Neurology consult, echo, PT/OT/ST Obtain carotid dopplers- no evidence of hemodynamically significant carotid stenosis but noted to have approximately 50% of right carotid stenosis Pt needs follow up with AARON Corado of [facility] [place] [facility] (last seen in 2022) - will make appointment with the vascular on discharge Has been on aspirin 81 mg and also takes Aricept Appreciate neurology input and recommendation to continue aspirin and also make appointment for follow-up appointments with neurologist as an outpatient and also vascular surgery in less than 4 weeks he will be discharged home this afternoon #CAD hx of CABG x 3 #Chronic Diastolic CHF #HTN #HLD on ASA, Statin, ranexa, imdur, lasix Pt previously on metoprolol but he stopped on his on a few months ago ---last echo 10/27: The left ventricular cavity size is normal. The LV wall thickness is mildly increased (concentric).The septal motion is abnormal consistent with interventricular conduction delay.The regional left ventricular wall motion is otherwise normal.The qualitative LV ejection fraction is 55-59% (normal).The left ventricular diastolic function is mildly abnormal (grade I).There is no significant valvular disease The proximal ascending thoracic aorta is mildly enlarged. (4.3 cm) daily weight, continue current meds ECHO of the heart this morning showed normal LV systolic function with mild concentric LV hypertrophy, EF 55 to 60%, LV wall motion is normal, RV is normal size and function, interatrial septum is intact without evidence of ASD or PFO, aortic valve sclerosis mild without significant stenosis and grade 1 diastolic dysfunction with aortic root mildly dilated No change will be made with his medications #VERÓNICA non compliant with Cpap #Depression with anxiety: on zoloft, trazodone, wellbutrin follows Psych DVT ppx: SCDS for now FULL CODE [facility]CP: [facility] admit to [facility]U under obs for stroke w/u, suspect able to d/c tomorrow early afternoon if w/u negative with PCP, Neuro and Vascular follow up Admission and Anticipated Discharge Date Admission Date: November 25, 2024 Subjective 11/26/2024 The patient was seen and examined in telemetry unit He was admitted with strokelike symptoms mainly drooling from the mouth while he was eating breakfast, he did not have any other symptoms associated with it His symptoms are resolved and he does not have any neurosymptoms as of this morning Remains hemodynamically stable Review of Systems Review of Systems: All systems reviewed and are unremarkable except as noted below Physical Exam Physical Exam: Lying in bed without any acute distress Constitutional: well developed, well nourished and + obese; not ill appearing Eyes: PERRL, conjunctivae normal, anicteric sclerae ENMT: external ear and nose normal, oropharynx normal Neck: trachea midline, no thyromegaly Respiratory: no respiratory distress Auscultation: lungs clear to auscultation bilaterally Cardiovascular: Rate/Rhythm: regular rate and regular rhythm; not tachycardic Heart Sounds: normal S1 and normal S2; no murmur Extremities: no edema Gastrointestinal (Abdomen): Inspection/Auscultation: normal bowel sounds; abdomen not distended Percussion/Palpation: abdomen soft; abdomen nontender Musculoskeletal: No acute arthritis involving any of the joint Neurologic: normal touch/pain/proprioception and moves all extremities; no focal motor deficits No facial asymmetry. and no problem with speech Psychiatric: A+Ox3, euthymic affect Lymphatic: no cervical or axillary lymphadenopathy Results & Data Results & Data Vital Signs (Past 12 Hours) Vital Signs Temp Pulse Resp BP Pulse Ox O2 Del Method 11/26/24 11:06 36.8 C 91 H 19 128/86 94 Room Air 11/26/24 07:20 36.8 C 68 20 144/88 H 92 Room Air Laboratory Results Short CBC 11/25/24 11/26/24 Range/Units 15:45 06:25 WBC 6.66 8.09 (4.8-10.8) K/ul Hgb 14.5 13.9 L (14.0-18.0) g/dl Hct 43.0 40.6 L (42.0-52.0) % Plt Count 337 307 (130-400) K/uL BMP 11/25/24 11/25/24 11/26/24 15:45 19:37 06:25 Sodium Cancelled 139 140 Potassium Cancelled 3.7 4.0 Chloride Cancelled 104 102 Carbon Dioxide Cancelled 29 33 H BUN Cancelled 7 8 Creatinine Cancelled 0.90 1.05 Glucose Cancelled 103 H 99 Calcium Cancelled 9.4 9.5 Liver Function 11/25/24 11/25/24 Range/Units 15:45 19:37 Total Bilirubin Cancelled 0.4 AST Cancelled 16 ALT Cancelled 15 Alkaline Phosphatase Cancelled 69 Albumin Cancelled 4.2 Urine 11/25/24 Range/Units Unknown Urine Color Yellow Urine Appearance Clear (Clear) Urine pH 6.5 (4.5-7.5) Ur Specific [place] 1.011 (1.000-1.030) Urine Protein Negative (Negative) Urine Glucose (UA) Negative (Negative) Diagnostic Findings Laboratory Results WBC 8.09 K/ul (4.8-10.8) 11/26/24 06:25 RBC 4.63 M/uL (4.70-6.10) L 11/26/24 06:25 Hgb 13.9 g/dl (14.0-18.0) L 11/26/24 06:25 POC Hgb 14.6 g/dl (14.0-18.0) 11/25/24 15:50 Hct 40.6 % (42.0-52.0) L 11/26/24 06:25 POC Hct 43 % (42-52) 11/25/24 15:50 MCV 87.7 fL (80.0-100.0) 11/26/24 06:25 MCH 30.0 pg (25.0-34.0) 11/26/24 06: MCHC 34.2 g/dL (32.0-36.0) 11/26/24 06: RDW Std Deviation 43.7 fL (36.4-46.3) 11/26/24 06: RDW Coeff of Deanne 13.7 % (11.5-14.5) 11/26/24 06: Plt Count 307 K/uL (130-400) 11/26/24 06: MPV 8.9 fL (9.4-12.4) L 11/26/24 06: Immature Gran % (Auto) 0.4 % 11/26/24 06: Neut % (Auto) 58.2 % 11/26/24 06: Lymph % (Auto) 29.7 % 11/26/24 06: [place] % (Auto) 8.4 % 11/26/24 06: Eos % (Auto) 2.6 % 11/26/24 06: Baso % (Auto) 0.7 % 11/26/24 06: Neut # (Auto) 4.71 K/uL (1.40-6.50) 11/26/24 06:25 Lymph # (Auto) 2.40 K/uL (1.20-3.40) 11/26/24 06:25 [place] # (Auto) 0.68 K/uL (0.11-0.59) H 11/26/24 06:25 Eos # (Auto) 0.21 K/uL (0.00-0.50) 11/26/24 06: Baso # (Auto) 0.06 K/uL (0.00-0.20) 11/26/24 06:25 Immature Gran # (Auto) 0.03 K/uL (0.01-0.20) 11/26/24 06:25 PT 10.5 Seconds (9.0-12.0) 11/25/24 15:45 INR 1.0 (0.9-1.1) 11/25/24 15:45 APTT 23 Seconds (21-31) 11/25/24 15:45 PTT Ratio 0.9 11/25/24 15:45 POC Sodium 139 mmol/L (135-144) 11/25/24 15:50 Sodium 140 mmol/L (136-145) 11/26/24 06:25 POC Potassium 4.5 mmol/L (3.3-5.0) 11/25/24 15:50 Potassium 4.0 mmol/L (3.5-5.1) 11/26/24 06:25 POC Chloride 101 mmol/L (101-112) 11/25/24 15:50 Chloride 102 mmol/L (98-107) 11/26/24 06:25 Carbon Dioxide 33 mmol/L (21-32) H 11/26/24 06:25 POC Total CO2 28 mmol/L (24-31) 11/25/24 15:50 Anion Gap 5 (3-11) 11/26/24 06:25 POC Anion Gap 16.0 mmol/L (16-25) 11/25/24 15:50 POC BUN 7 mg/dl (7-18) 11/25/24 15:50 BUN 8 mg/dl (6-23) 11/26/24 06:25 Creatinine 1.05 mg/dl (0.6-1.4) 11/26/24 06:25 POC Creatinine 1.0 mg/dl (0.6-1.3) 11/25/24 15:50 Est Cr Clr Drug Dosing 94.6 ml/min 11/26/24 06:25 eGFR 78.77 11/26/24 06:25 BUN/Creatinine Ratio 7.6 (10-20) L 11/26/24 06:25 Glucose 99 mg/dl (70-99(Fasting)) 11/26/24 06:25 POC Glucose (other) 113 mg/dl (70-99) H 11/25/24 15:50 Estimat Average Glucose 114 mg/dl 11/26/24 06:25 Hemoglobin A1c 5.6 % (4.5-5.6) 11/26/24 06:25 Calcium 9.5 mg/dl (8.6-10.3) 11/26/24 06:25 POC Ioniz Calcium [place] 1.19 mmol/l (1.12-1.32) 11/25/24 15:50 Magnesium 2.1 mg/dl (1.7-2.4) 11/25/24 19:37 Total Bilirubin 0.4 mg/dl (0.2-1.0) 11/25/24 19:37 AST 16 U/L (13-39) 11/25/24 19:37 ALT 15 U/L (7-52) 11/25/24 19:37 Alkaline Phosphatase 69 U/L (34-104) 11/25/24 19:37 Troponin I High Sens 143.7 pg/ml (0-20) H* D 11/26/24 06:25 Total Protein 6.5 gm/dl (6.0-8.3) 11/25/24 19:37 Albumin 4.2 gm/dl (3.4-5.0) 11/25/24 19:37 Globulin 2.3 gm/dl (2.5-4.0) L 11/25/24 19:37 Albumin/Globulin Ratio 1.8 (0.9-2) 11/25/24 19:37 Triglycerides 225 mg/dl (0-150) H 11/26/24 06:25 Cholesterol 155 mg/dl (0-200) 11/26/24 06:25 LDL Cholesterol, Calc 66 mg/dl 11/26/24 06:25 VLDL Cholesterol, Calc 45 mg/dl (0-30) H 11/26/24 06:25 HDL Cholesterol 44 mg/dl 11/26/24 06:25 Cholesterol/HDL Ratio 3.5 (0-5) 11/26/24 06:25 Urine Color Yellow 11/25/24 Unknown Urine Appearance Clear (Clear) 11/25/24 Unknown Urine pH 6.5 (4.5-7.5) 11/25/24 Unknown Ur Specific [place] 1.011 (1.000-1.030) 11/25/24 Unknown Urine Protein Negative (Negative) 11/25/24 Unknown Urine Glucose (UA) Negative (Negative) 11/25/24 Unknown Urine Ketones Negative (Negative) 11/25/24 Unknown Urine Blood Negative (Negative) 11/25/24 Unknown Urine Nitrite Negative (Negative) 11/25/24 Unknown Urine Bilirubin Negative (Negative) 11/25/24 Unknown Urine Urobilinogen Negative (Negative) 11/25/24 Unknown Ur Leukocyte Esterase Negative (Negative) 11/25/24 Unknown Influenza A (RT-PCR) Negative (Negative) 11/25/24 17:57 Influenza B (RT-PCR) Negative (Negative) 11/25/24 17:57 RSV (RT-PCR) Negative (Negative) 11/25/24 17:[address] 11/25/24 15:42 EXAM: CT Head Without Intravenous Contrast INDICATION: Blurry vision. TECHNIQUE: Axial computed tomography images of the head/brain without intravenous contrast. Sagittal and/or coronal reformats are provided. Sagittal and coronal reformatted images were created and reviewed. This CT exam was performed using one or more of the following dose reduction techniques: automated exposure control, adjustment of the mA and/or kV according to patient size, and/or use of iterative reconstruction technique. COMPARISON: 07/03/2023 FINDINGS: Limitations: None. Brain and extra-axial spaces: There is age appropriate cortical atrophy and chronic ischemic periventricular white matter hypodensity. No acute infarct, hemorrhage or mass noted. Bones/joints: No acute changes. Soft tissues: No significant abnormality noted. Vasculature: There is intracranial atherosclerotic calcification. Sinuses: No layering fluid in the visualized portions of the paranasal sinuses. Mastoid air cells: No mastoid effusion. Orbits: No significant abnormality noted. IMPRESSION: Cerebral atrophy. No acute changes. Findings discussed by phone with Dr. Patterson at 4:20 PM 11/25/2024 ACT 112: N/A Electronically signed by Stormy Villanueva 11-25-2024 4:24 PM Head CTA 11/25/24 15:42 EXAM: CT Angiography Head and Neck With Intravenous Contrast INDICATION: Blurred vision TECHNIQUE: [facility]/head and neck CT angiography protocol performed with intravenous contrast. Sagittal and coronal reformatted images were created and reviewed. This CT exam was performed using one or more of the following dose reduction techniques: automated exposure control, adjustment of the mA and/or kV according to patient size, and/or use of iterative reconstruction technique. MIP reconstructed images were created and reviewed. CONTRAST: 119 cc of Optiray 320 was administered intravenously. COMPARISON: None. FINDINGS: HEAD: Right anterior cerebral artery: No abnormality noted. No occlusion or significant stenosis. Anterior communicating artery is present. No aneurysm. Right middle cerebral artery: No abnormality noted. No occlusion or significant stenosis. No aneurysm. Right posterior cerebral artery: No abnormality noted. No occlusion or significant stenosis. No aneurysm. Right intracranial internal carotid artery: There is moderate atherosclerotic calcification without stenosis, occlusion, aneurysm or dissection. Right intracranial vertebral artery: There is multifocal calcific plaque. There is distal stenosis of up to 75%. No aneurysm, dissection or occlusion. Left anterior cerebral artery: No abnormality noted. No occlusion or significant stenosis. No aneurysm. Left middle cerebral artery: No abnormality noted. No occlusion or significant stenosis. No aneurysm. Left posterior cerebral artery: No abnormality noted. No occlusion or significant stenosis. No aneurysm. Left intracranial internal carotid artery: There is moderate atherosclerotic calcification without stenosis occlusion, aneurysm or dissection. Left intracranial vertebral artery: There is focal distal calcific plaque iwith less than 20% stenosis. No aneurysm, dissection or occlusion. Basilar artery: No abnormality noted. No occlusion or significant stenosis. No aneurysm. Other vasculature: Patent dural venous sinuses. No vascular malformation. NECK: Right common carotid artery: No abnormality noted. No significant stenosis. No dissection or occlusion. Right extracranial internal carotid artery: There is moderate calcific plaque cervical proximal internal carotid bulb with approximate 60% stenosis. No aneurysm, dissection or occlusion. Right external carotid artery: No abnormality noted. No occlusion. Right extracranial vertebral artery: No abnormality noted. No significant stenosis. No dissection or occlusion. Left common carotid artery: No abnormality noted. No significant stenosis. No dissection or occlusion. Left extracranial internal carotid artery: There is moderate proximal calcific plaque with up to a 80% proximal stenosis. No aneurysm, dissection or occlusion. Left external carotid artery: No abnormality noted. No occlusion. Left extracranial vertebral artery: Small focal distal calcific plaque. No aneurysm, dissection, stenosis or occlusion. Lung apices: No significant abnormality noted. HEAD and NECK: Bones/joints: No significant abnormality. Soft tissues: No abnormality noted. CAROTID STENOSIS REFERENCE USING NASCET CRITERIA: % ICA stenosis = (1 - narrowest ICA diameter/diameter of distal cervical ICA) x 100. Mild - <50% stenosis. Moderate - 50-69% stenosis. Severe - 70-94% stenosis. Near occlusion - 95-99% stenosis. Occluded - 100% stenosis. IMPRESSION: 1. Bilateral cervical external/internal carotid arterial stenosis of about 60% on the right and 80% on the left. 2. 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 3. No large vessel occlusion, aneurysm or dissection. Findings discussed by phone with Dr. Patterson at 4:20 PM 11/25/2024 ACT 112: N/A Electronically signed by Stormy Villanueva 11-25-2024 4:24 PM Neck CTA 11/25/24 15:42 EXAM: CT Angiography Head and Neck With Intravenous Contrast INDICATION: Blurred vision TECHNIQUE: [facility]/head and neck CT angiography protocol performed with intravenous contrast. Sagittal and coronal reformatted images were created and reviewed. This CT exam was performed using one or more of the following dose reduction techniques: automated exposure control, adjustment of the mA and/or kV according to patient size, and/or use of iterative reconstruction technique. MIP reconstructed images were created and reviewed. CONTRAST: 119 cc of Optiray 320 was administered intravenously. COMPARISON: None. FINDINGS: HEAD: Right anterior cerebral artery: No abnormality noted. No occlusion or significant stenosis. Anterior communicating artery is present. No aneurysm. Right middle cerebral artery: No abnormality noted. No occlusion or significant stenosis. No aneurysm. Right posterior cerebral artery: No abnormality noted. No occlusion or significant stenosis. No aneurysm. Right intracranial internal carotid artery: There is moderate atherosclerotic calcification without stenosis, occlusion, aneurysm or dissection. Right intracranial vertebral artery: There is multifocal calcific plaque. There is distal stenosis of up to 75%. No aneurysm, dissection or occlusion. Left anterior cerebral artery: No abnormality noted. No occlusion or significant stenosis. No aneurysm. Left middle cerebral artery: No abnormality noted. No occlusion or significant stenosis. No aneurysm. Left posterior cerebral artery: No abnormality noted. No occlusion or significant stenosis. No aneurysm. Left intracranial internal carotid artery: There is moderate atherosclerotic calcification without stenosis occlusion, aneurysm or dissection. Left intracranial vertebral artery: There is focal distal calcific plaque iwith less than 20% stenosis. No aneurysm, dissection or occlusion. Basilar artery: No abnormality noted. No occlusion or significant stenosis. No aneurysm. Other vasculature: Patent dural venous sinuses. No vascular malformation. NECK: Right common carotid artery: No abnormality noted. No significant stenosis. No dissection or occlusion. Right extracranial internal carotid artery: There is moderate calcific plaque cervical proximal internal carotid bulb with approximate 60% stenosis. No aneurysm, dissection or occlusion. Right external carotid artery: No abnormality noted. No occlusion. Right extracranial vertebral artery: No abnormality noted. No significant stenosis. No dissection or occlusion. Left common carotid artery: No abnormality noted. No significant stenosis. No dissection or occlusion. Left extracranial internal carotid artery: There is moderate proximal calcific plaque with up to a 80% proximal stenosis. No aneurysm, dissection or occlusion. Left external carotid artery: No abnormality noted. No occlusion. Left extracranial vertebral artery: Small focal distal calcific plaque. No aneurysm, dissection, stenosis or occlusion. Lung apices: No significant abnormality noted. HEAD and NECK: Bones/joints: No significant abnormality. Soft tissues: No abnormality noted. CAROTID STENOSIS REFERENCE USING NASCET CRITERIA: % ICA stenosis = (1 - narrowest ICA diameter/diameter of distal cervical ICA) x 100. Mild - <50% stenosis. Moderate - 50-69% stenosis. Severe - 70-94% stenosis. Near occlusion - 95-99% stenosis. Occluded - 100% stenosis. IMPRESSION: 1. Bilateral cervical external/internal carotid arterial stenosis of about 60% on the right and 80% on the left. 2. 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 3. No large vessel occlusion, aneurysm or dissection. Findings discussed by phone with Dr. Patterson at 4:20 PM 11/25/2024 ACT 112: N/A Electronically signed by Stormy Villanueva 11-25-2024 4:24 PM Brain MRI 11/25/24 16:59 Exam(s): MRI HEAD W/WO Contrast IV Amt: 12mL Gadvist given IV EXAM: MR Head Without and With Intravenous Contrast CLINICAL HISTORY: Reason for exam: stroke like sx, vertigo sx, r/o cva and posterior. TECHNIQUE: Magnetic resonance images of the head/brain without and with intravenous contrast in multiple planes. CONTRAST: Patient received 12mL Gadvist given IV of IV contrast COMPARISON: No relevant prior studies available. FINDINGS: Brain: Unremarkable. No mass. No hemorrhage. No acute infarct. Ventricles: Unremarkable. No ventriculomegaly. Bones/joints: Unremarkable. No acute fracture. Sinuses: Unremarkable as visualized. No acute sinusitis. Mastoid air cells: Unremarkable as visualized. No mastoid effusion. Orbits: Unremarkable as visualized. IMPRESSION: Normal head/brain MRI. Electronically signed by: Wesley Triana MD 11/25/24 21:50 PM Carotid Doppler Study 11/25/24 17:35 Exam(s): US CAROTID EXAM: US Duplex Bilateral Extracranial Arteries CLINICAL HISTORY: Reason for exam: Carotid artery stenosis. TECHNIQUE: Real-time duplex ultrasound scan of the extracranial arteries integrating B-mode two-dimensional vascular structure, Doppler spectral analysis and color flow Doppler imaging. COMPARISON: No relevant prior studies available. FINDINGS: Right common carotid artery: Moderate atherosclerotic calcification seen in the right common carotid artery and right carotid bulb. No occlusion or hemodynamically significant stenosis on color flow and spectral Doppler imaging. Right internal carotid artery: 128 cm/s Right external carotid artery: Unremarkable. No occlusion or significant stenosis on color flow and spectral Doppler imaging. Right vertebral artery: Unremarkable. Antegrade flow. Right ICA/CCA ratio: Right ICA/CCA peak systolic velocity ratio is 1.9. Left common carotid artery: Moderate atherosclerotic calcifications are seen in the left common carotid artery and left carotid bulb. No occlusion or hemodynamically significant stenosis on color flow and spectral Doppler imaging. Left internal carotid artery: 67 cm/s Left external carotid artery: Unremarkable. No occlusion or significant stenosis on color flow and spectral Doppler imaging. Left vertebral artery: Unremarkable. Antegrade flow. Left ICA/CCA ratio: Left ICA/CCA peak systolic velocity ratio is 0.9. Lymph nodes: Unremarkable. No lymphadenopathy. CAROTID STENOSIS REFERENCE USING IAC CRITERIA: Mild - <50% stenosis. ICA PSV is less than 180 cm/s and plaque or intimal thickening is visible. Moderate - 50-69% stenosis. ICA PSV is 180 to 230 cm/s and plaque is visible. Severe - 70-94% stenosis. ICA PSV is more than 230 cm/s and visible plaque with lumen narrowing is seen. Near occlusion - 95-99% stenosis. ICA PSV is variable and significant plaque with luminal narrowing is seen. Occluded - 100% stenosis. No flow identified. IMPRESSION: No evidence of hemodynamically significant carotid stenosis. Approximately 50% right carotid stenosis. Electronically signed by: Wesley Triana MD 11/25/24 22:08 PM Medications Administered Current Inpatient Medications Acetaminophen (Acetaminophen 325 Mg Tab) 650 mg PO Q4H PRN PRN Reason: Pain or Fever Stop: 12/25/24 18:41 Last Admin: 11/25/24 19:23 Dose: 650 mg Artificial Tears (Artificial Tears) 1 drops OPB Q6 PRN PRN Reason: Dryness Stop: 12/25/24 18:48 Aspirin (Aspirin 81 Mg Ectab) 81 mg PO QAM [facility] Stop: 12/26/24 08:59 Last Admin: 11/26/24 07:36 Dose: 81 mg Atorvastatin Calcium (Atorvastatin 40 Mg Tab) 80 mg PO DAILY [facility] Stop: 12/26/24 08:59 Last Admin: 11/26/24 07:38 Dose: 80 mg Bupropion HCl (Bupropion Sr 150 Mg Tabcr) 150 mg PO BID [facility] Stop: 12/25/24 20:59 Last Admin: 11/26/24 07:37 Dose: 150 mg Cyanocobalamin (Cyanocobalamin (B-12) 500 Mcg Tablet) 2,000 mcg PO DAILY [facility] Stop: 12/26/24 08:59 Last Admin: 11/26/24 07:38 Dose: 2,000 mcg Donepezil HCl (Donepezil Hcl 10 Mg Tab) 10 mg PO DAILY [facility] Stop: 12/26/24 08:59 Last Admin: 11/26/24 07:38 Dose: 10 mg Famotidine (Famotidine 20 Mg Tab) 20 mg PO DAILY [facility] Stop: 12/26/24 08:59 Last Admin: 11/26/24 08:12 Dose: 20 mg Folic Acid (Folic Acid 1 Mg Tab) 1 mg PO DAILY [facility] Stop: 12/26/24 08:59 Last Admin: 11/26/24 07:39 Dose: 1 mg Furosemide (Furosemide 80 Mg Tab) 80 mg PO QAM [facility] Stop: 12/26/24 08:59 Last Admin: 11/26/24 07:37 Dose: 80 mg Isosorbide Mononitrate (Isosorbide [place] Extended Rel 60 Mg Tabcr) 120 mg PO DAILY [facility] Stop: 12/26/24 08:59 Last Admin: 11/26/24 07:37 Dose: 120 mg Miscellaneous Information (Pharmacist Discharge Med Rec Consult) 1 each N/A UD PRN PRN Reason: Consult Stop: 12/25/24 18:41 Multi-Ingredient Cream (Artificial Tears Op Oint 3.5 Gm Tube) 1 appln OPL HS [facility] Stop: 12/25/24 20:59 Last Admin: 11/25/24 21:03 Dose: Not Given Ondansetron HCl (Ondansetron Inj 2 Mg/Ml 2 Ml Vial) 4 mg IV Q6H PRN PRN Reason: Nausea Stop: 12/25/24 18:41 Pantoprazole Sodium (Pantoprazole 40 Mg Tab) 40 mg PO BID [facility]; Protocol Stop: 12/25/24 20:59 Last Admin: 11/26/24 07:39 Dose: 40 mg Polyethylene Glycol (Polyethylene (Miralax) 17 Gm Pack) 17 gm PO DAILY PRN PRN Reason: Constipation Stop: 12/25/24 18:41 Polyethylene Glycol (Polyethylene (Miralax) 17 Gm Pack) 17 gm PO DAILY [facility] Stop: 12/26/24 08:59 Last Admin: 11/26/24 07:39 Dose: Not Given Potassium Chloride (Potassium Chloride Crtab 20 Meq Tabcr) 20 meq PO DAILY MERVIN Stop: 12/26/24 08:59 Last Admin: 11/26/24 08:12 Dose: 20 meq Ranolazine (Ranolazine 500 Mg Er Tab) 500 mg PO BID MERVIN Stop: 12/25/24 20:59 Last Admin: 11/26/24 07:37 Dose: 500 mg Sertraline HCl (Sertraline Hcl 100 Mg Tablet) 200 mg PO QAM MERVIN Stop: 12/26/24 08:59 Last Admin: 11/26/24 07:37 Dose: 200 mg Trazodone HCl (Trazodone Hcl 100 Mg Tab) 400 mg PO DAILY@1800 MERVIN Stop: 12/25/24 19:14 Last Admin: 11/25/24 19:19 Dose: 400 mg
--- NOTE | 2024-11-26 12:13 | Electrocardiogram Report ---
Test Reason : Blood Pressure : */* mmHG Vent. Rate : 74 BPM Atrial Rate : 74 BPM P-R Int : 232 ms QRS Dur : 142 ms QT Int : 444 ms P-R-T Axes : 61 -71 47 degrees QTcB Int : 492 ms Sinus rhythm with 1st degree A-V block Left axis deviation Right bundle branch block Inferior infarct (cited on or before 12-Nov-2019) Anterolateral infarct (cited on or before 03-Nov-2021) Abnormal ECG When compared with ECG of 12-Jun-2024 11:39, QT has lengthened Confirmed by Abe De Luna ([id number]) on 11/26/2024 12:13:09 PM Referred By: REFERRED SELF Confirmed By: Abe De Luna
[2024-11-26] MEDS ORDERED: STROKE PATIENT DISCHARGE STA (12:39)
[2024-11-26 12:53] VITALS: BP 153/104
--- NOTE | 2024-11-26 13:29 | Pharmacy Report ---
- Date of Service November 26, 2024 - Pharmacy CVA/TIA Medication Review Medications to Prevent Stroke handout has been added to the patients discharge packet. Antiplatelet(s) * aspirin 81mg PO daily Cholesterol * High intensity statin: atorvastatin 80 mg daily DVT Prophylaxis * discharging/discharged Therapeutic Anticoagulation * No history of Afib/Aflutter noted Type 2 Diabetes * Patient does not have T2DM
--- NOTE | 2024-11-27 08:10 | Discharge Summary ---
Date of Service November 27, 2024 Admission HPI Per Admitting Provider This is a 64-year-old male who has a significant past medical history of CAD status post CABG x 3, history of hemorrhagic CVA, chronic diastolic CHF, HTN, HLD, aortic root dilatation, VERÓNICA noncompliant with BiPAP, morbid obesity and depression with anxiety who presents to ED secondary to feeling off balance and food coming out of his mouth starting today. Patient states he was in his normal state of health around 8 AM. He was eating his breakfast at approximately 9 AM whenever he felt fluid coming out of it. He denies any facial droop but feels more fluid was coming out of the left as opposed to the right. He also states that every night he does multiple puzzles on his phone to work his memory. Over the last few days he has had more difficulty with this as he usually is at advance level, but had to do beginner level. He also notes feeling off balance when he closes his eyes. After eating breakfast he went to the gym where he lifted weights including butterflies and curls. He denied any focal weakness exertional chest pain or shortness of breath doing these activities. She reports just feeling, "off." Given his prior history his symptoms had him worried so he presented to the ED. He actually called the [facility] to try to get a sooner neurology appointment as he cannot be seen until April and they were unable to accommodate his request. They referred him to the ED. He denies any recent illness, fever, chills, sweats, lightheadedness, dizziness, headache, chest pain, shortness of breath, RUTLEDGE, hemoptysis, nausea, vomiting, diarrhea or changes bowel or urinary habits. Does admit to occasional blurred vision. In ED patient was mildly hypertensive, his CBC and CMP was generally unremarkable. He did have a mildly elevated troponin at 210.6. His EKG was without ischemic change and compared to prior EKG was unchanged. He underwent a head CT and a head and neck CTA. He has known bilateral cervical external/internal carotid artery stenosis of about 60% on the right and 80% on the left also noted is multifocal plaque and stenosis in the right intracranial vertebral artery. This was discussed with ED provider who also communicated with [facility] who recommended carotid Dopplers and follow-up as an outpatient. Admission Exam Per Admitting Provider Physical Exam: Constitutional: WD/WN, vitals as above, NAD, sitting up in bed, pleasant, conversing easily Head: Normocephalic, Atraumatic Eyes: PERRL, conjunctivae normal, anicteric sclerae ENMT: external ear and nose normal, oropharynx normal Neck: trachea midline, no thyromegaly normal visual inspection Respiratory: normal respiratory effort, lungs clear to auscultation, no wheeze, rales, rhonchi. Normal insp/exp effort, no accessory muscle use Cardiovascular: RRR, no murmur, no edema Vessels: no JVD or carotid bruit Chest: normal inspection of chest Abdomen: protuberant abd, normal bowel sounds, soft, nontender, no hepatosplenomegaly Musculoskeletal: no cyanosis or clubbing, extremities motor strength 5/5 Skin: no rashes, warm and dry normal turgor Neurologic: PERRL, EOMI, accommodation nl, no face palsy, no dysarthria CN's II-XI intact bilaterally and moves all extremities Psychiatric: A+Ox3, euthymic affect : deferred Principal Diagnosis Stroke Like Symptoms Discharge Exam Lying in bed without any acute distress Constitutional well developed, well nourished and + obese; not ill appearing Eyes PERRL, conjunctivae normal, anicteric sclerae ENMT external ear and nose normal, oropharynx normal Neck trachea midline, no thyromegaly Respiratory no respiratory distress Auscultation: lungs clear to auscultation bilaterally Cardiovascular Rate/Rhythm: regular rate and regular rhythm; not tachycardic Heart Sounds: normal S1 and normal S2; no murmur Extremities: no edema Gastrointestinal (Abdomen) Inspection/Auscultation: normal bowel sounds; abdomen not distended Percussion/Palpation: abdomen soft; abdomen nontender Neurologic normal touch/pain/proprioception and moves all extremities; no focal motor defi cits Psychiatric A+Ox3, euthymic affect Lymphatic no cervical or axillary lymphadenopathy Discharge Data Allergies Allergy/AdvReac Type Severity Reaction Status Date / Time adhesive Allergy Mild Rash Verified 11/25/24 16:11 poison angélica extract Allergy Rash Verified 11/26/24 12:48 poison oak extract Allergy Rash Verified 11/26/24 12:48 butalbital [From Fioricet] AdvReac Intermediate NAUSEA/VOMI Verified 11/25/24 16:11 TING caffeine [From Fioricet] AdvReac Intermediate NAUSEA/VOMI Verified 11/25/24 16:11 TING terazosin AdvReac Intermediate Dizziness Verified 11/25/24 16:11 Consultations 11/25/24 16:23 ED Decision to Admit Stat 11/25/24 16:59 Consult Neurology Routine Ordered Studies 11/25/24 15:42 CT angio head w con Stat CT angio neck with con Stat CT head/brain wo con Stat 11/25/24 16:59 MR brain wo/w con Routine 11/25/24 17:35 US carotid doppler BI Stat Hospital Course (1) Stroke-like episode: (2) Elevated troponin: (3) Chronic diastolic CHF (congestive heart failure): (4) CAD (coronary artery disease): (5) Carotid artery stenosis, asymptomatic: Plan This is a 64-year-old male who has a significant past medical history of CAD status post CABG x 3, history of hemorrhagic CVA, chronic diastolic CHF, HTN, HLD, aortic root dilatation, VERÓNICA noncompliant with BiPAP, morbid obesity and depression with anxiety who presents to ED secondary to feeling off balance and food coming out of his mouth starting today. #Stroke like sx #Known Carotid artery stenosis R 60%, L 80% Hx of hemorrhagic CVA per pt Around 9 a.m. pt reported eating breakfast and food coming out of both sides of mouth, also reports difficulty processing information, occasional blurry vision and off balance He proceeded to then go to the gym where he worked out w/o difficulty He denies any focal sx head CT and head neck CTA w/o acute abnormality except for carotid artery and vertebral artery stenosis Stroke w/u with MRI brain w and w/o, Neurology consult, echo, PT/OT/ST Obtain carotid dopplers- no evidence of hemodynamically significant carotid stenosis but noted to have approximately 50% of right carotid stenosis Pt needs follow up with AARON Corado of [facility] vascular (last seen in 2022) - will make appointment with the vascular on discharge Has been on aspirin 81 mg and also takes Aricept Appreciate neurology input and recommendation to continue aspirin and also make appointment for follow-up appointments with neurologist as an outpatient and also vascular surgery in less than 4 weeks he will be discharged home this afternoon #CAD hx of CABG x 3 #Chronic Diastolic CHF #HTN #HLD on ASA, Statin, ranexa, imdur, lasix Pt previously on metoprolol but he stopped on his on a few months ago ---last echo 10/27: The left ventricular cavity size is normal. The LV wall thickness is mildly increased (concentric).The septal motion is abnormal consistent with interventricular conduction delay.The regional left ventricular wall motion is otherwise normal.The qualitative LV ejection fraction is 55-59% (normal).The left ventricular diastolic function is mildly abnormal (grade I).There is no significant valvular disease The proximal ascending thoracic aorta is mildly enlarged. (4.3 cm) daily weight, continue current meds ECHO of the heart this morning showed normal LV systolic function with mild concentric LV hypertrophy, EF 55 to 60%, LV wall motion is normal, RV is normal size and function, interatrial septum is intact without evidence of ASD or PFO, aortic valve sclerosis mild without significant stenosis and grade 1 diastolic dysfunction with aortic root mildly dilated No change will be made with his medications #VERÓNICA non compliant with Cpap #Depression with anxiety: on zoloft, trazodone, wellbutrin follows Psych DVT ppx: SCDS for now FULL CODE PCP: [facility] and the [facility] Dispo: admit to PCU under obs for stroke w/u, suspect able to d/c tomorrow early afternoon if w/u negative with PCP, Neuro and Vascular follow up Total Time Total Time Spent Total Time Spent (In Minutes): 35 Minutes Discharge Plan Discharge Items Patient Disposition: Home - Self-Care Reason For Visit: STROKE LIKE SX Discharge Diagnosis: Stroke Like Symptoms Condition on Discharge: Good Activity: Resume your previous activity Non-emergency contact: Primary Care Provider Call non-emergency contact if: you have any medication questions and your symptoms worsen Follow-up/Referrals: Mikhail Helton MD [Primary Care Provider] - 12/03/24 9:40 am (Date & Time 12/03/2024 9:40 AM Provider: Mikhail Helton MD [facility] ) Juan Garcia M.D. [Staff Physician] - 01/27/25 10:50 am (Date & Time 01/27/2025 10:50 AM Provider: Juan Garcia MD Vascular Surgery, [facility] * Carotid Duplex Scan prior to appt * Date & Time 01/18/2025 9:30 AM Provider Vascular Lab, [facility] ) Yost Laurence A, M.D. [Outside Practitioners] - 12/07/24 1:40 pm (Date & Time 12/07/2024 1:40 PM Provider: Christine Yost MD Neurology [facility] ) Diet: Heart Healthy Addtl Attending Provider Instructions: please take precautions to avoid falls No change in your current medications Please keep appointments with your healthcare providers Pending Studies at Discharge: No Stand-Alone Forms: My [facility], Smoking Cessation, Medications to Prevent Stroke Medications and DC Order Prescriptions: Continued famotidine 20 mg tablet 20 mg PO DAILY Qty: 30 2RF omeprazole 40 mg capsule,delayed release(DR/EC) 40 mg PO BID Qty: 180 2RF polyethylene glycol 3350 [Miralax] 17 gram/dose powder 17 g PO DAILY Qty: 510 5RF atorvastatin 80 mg tablet 80 mg PO DAILY folic acid 1 mg tablet 1 mg PO DAILY isosorbide mononitrate 120 mg tablet extended release 24 hr 120 mg PO DAILY potassium chloride 20 mEq tablet,ER particles/crystals 20 meq PO DAILY ranolazine 500 mg tablet extended release 12 hr 500 mg PO BID trazodone 50 mg tablet 400 mg PO QPM Rx Instructions: PER PT "HAVE TO TAKE BEFORE 1800, OTHERWISE DO NOT TAKE". aspirin [Ayaka Low Dose Aspirin] 81 mg tablet,delayed release (DR/EC) 81 mg PO QAM furosemide [Lasix] 80 mg tablet 80 mg PO QAM nitroglycerin 0.4 mg tablet, sublingual 0.4 mg sublingual ONCE PRN (Reason: chest pain) Qty: 14 0RF cyclobenzaprine 10 mg Tablet 10 mg PO DAILY sertraline 100 mg tablet 200 mg PO QAM carboxymethylcellulose sodium [Refresh Tears] 0.5 % drops 1 drp OPB DIRECTED PRN (Reason: Dry Eyes) donepezil 10 mg Tablet 10 mg PO DAILY artificial tears with lanolin Ointment 1 applic OPL HS cyanocobalamin (vitamin B-12) [Vitamin B-12] 1,000 mcg tablet 2,000 mcg PO DAILY bupropion HCl 150 mg tablet sustained-release 12 hr 150 mg PO BID acetaminophen [Tylenol Extra Strength] 500 mg tablet 6,000 - 10,000 mg PO DAILY PRN (Reason: Pain) Rx Instructions: PER PT "ON A GOOD DAY, TAKE ABOUT 6 GRAMS, ON A BAD DAY, TAKE ABOUT 10 GRAMS, VA AWARE AND CHECK LIVER TESTS EVERY VISIT". Wegovy 1.7 mg/0.75 mL pen injector 1.7 mg SUBCUT WK Rx Instructions: SUNDAYS Discharge Orders: Discharge Order (Routine); Ordered 11/26/24 Ordered By: Shanthi Buchanan/Other Patient Handouts: Symptoms of Stroke Admission Data Admit Date/Time: 11/25/24 16:59 Attending Provider: Shanthi Andersen Admit Provider: Piedad Mercer Primary Care Provider: Mikhail Helton Other Providers: Javid Corley; Piedad Mercer Other Interventions: Discharge Summary Assessment (RN) Last Done: 11/26/24 12:52
== END 2024-11-26 13:12 | disposition home or self-care (01) ==
LOC: ED 15:34 → 2S 15:34 → SUATTDRO 16:59 → 2S 18:20